=== PATIENT | female | born 1960 | race Two or more races ===

== ENCOUNTER 2022-10-04 17:01 | Emergency (ER) | payer OTHER ==
[~2022-10-04] VITALS: Ht 167.6 cm; Wt 76.2 kg
== END 2022-10-04 20:03 | disposition home or self-care (01) ==
LOC: ER 17:01
DX: N39.0 Urinary tract infection, site not specified (principal); N20.0 Calculus of kidney; N13.30 Unspecified hydronephrosis; Z88.2 Allergy status to sulfonamides; Z88.8 Allergy status to other drugs, medicaments and biological substances

== ENCOUNTER 2022-11-01 22:03 | Inpatient (IN) | payer OTHER ==
[~2022-11-01] VITALS: Ht 167.6 cm; Wt 78.5 kg
--- NOTE | 2022-11-01 22:25 | NUR ---
REFIERE JEFFERSON DOLOR EN AREA ABDOMINAL ACOMPANADA POR VARIOS EPISODIOS DE VOMITOS Y DIARREAS, ESCALOFRIOS. TEMP. 100.9. REFIERE ESTAR ORINANDO CON KIMI, Y ALEGA TENER CONDICIONES DE INFECCIONES DE ORINA RECURRENTENS. TAMBIEN REFIERE DOLOR EN FLANCO KEENAN, Y TENER HISTORIAL DE PIEDRAS EN RINONES.
--- NOTE | 2022-11-02 00:04 | NUR ---
PTE ALERTA Y ORIENTADA X3. SE REALIZAN MUESTRAS DE LAB DEBRA ORDEN MEDICA Y BAJO MEDIDAS ASEPTICAS. SE REALIZA VENOPUNCION CON ANGIO 20 EN MANO DERECHA, AREA JUAN R DE EDEMA Y ENROJECIMIENO. SE ADMINISTRAN MEDICAMENTOS DEBRA ORDEN MEDICA.
--- NOTE | 2022-11-02 07:09 | NUR ---
SE RECIBE PACIENTE ALERTA EN MAGRIE CON BARANDAS ELEVADAS POR SEGURIDAD.PTE CON VENOPUNCION PATENTE Y JUAN R DE EDEMA BAJANDO 0.9NSS @150ML/HR.PTE PENDIENTE ENTREGA FECAL Y CONSULTA CON .
== END 2022-11-10 20:46 | disposition home or self-care (01) | DRG 690 ==
LOC: ER 22:03 → MEDI 11-02 12:28
PROVIDERS: ADMIT Internal Medicine; ATTEND Internal Medicine
PROC: BW3GZZZ Magnetic Resonance Imaging (MRI) of Pelvic Region (ICD-10-PCS; 2022-11-04)
PROC: 30233N1 Transfusion of Nonautologous Red Blood Cells into Peripheral Vein, Percutaneous Approach (ICD-10-PCS; principal; 2022-11-07)
DX: N39.0 Urinary tract infection, site not specified (principal); Z16.12 Extended spectrum beta lactamase (ESBL) resistance; N17.8 Other acute kidney failure; N13.721 Vesicoureteral-reflux with reflux nephropathy without hydroureter, unilateral; E87.6 Hypokalemia; N35.82 Other urethral stricture, female; N20.0 Calculus of kidney; B96.29 Other Escherichia coli [E. coli] as the cause of diseases classified elsewhere; K52.89 Other specified noninfective gastroenteritis and colitis; B96.89 Other specified bacterial agents as the cause of diseases classified elsewhere; D64.9 Anemia, unspecified; I12.9 Hypertensive chronic kidney disease with stage 1 through stage 4 chronic kidney disease, or unspecified chronic kidney disease; N18.9 Chronic kidney disease, unspecified; Z20.822 Contact with and (suspected) exposure to COVID-19
CPT/HCPCS: 72198; 74182

== ENCOUNTER 2022-12-10 15:19 | Inpatient (IN) | payer OTHER ==
[~2022-12-10] VITALS: Ht 167.6 cm; Wt 76.2 kg
[2022-12-10] MEDS ORDERED: HIPREX1 GM PO (15:35)
== END 2022-12-20 17:14 | disposition home or self-care (01) | DRG 660 ==
LOC: ER 15:19 → MEDI 20:46
PROVIDERS: Urology; ADMIT Internal Medicine; ATTEND Internal Medicine
PROC: BW21ZZZ Computerized Tomography (CT Scan) of Abdomen and Pelvis (ICD-10-PCS; 2022-12-10)
PROC: BT14ZZZ Fluoroscopy of Kidneys, Ureters and Bladder (ICD-10-PCS; 2022-12-16)
PROC: 0T788DZ Dilation of Bilateral Ureters with Intraluminal Device, Via Natural or Artificial Opening Endoscopic (ICD-10-PCS; principal; 2022-12-16 13:30)
DX: N13.1 Hydronephrosis with ureteral stricture, not elsewhere classified (principal); Z16.24 Resistance to multiple antibiotics; N39.0 Urinary tract infection, site not specified; N17.8 Other acute kidney failure; N13.721 Vesicoureteral-reflux with reflux nephropathy without hydroureter, unilateral; N20.0 Calculus of kidney; E11.22 Type 2 diabetes mellitus with diabetic chronic kidney disease; N18.31 Chronic kidney disease, stage 3a; Z79.4 Long term (current) use of insulin; B96.20 Unspecified Escherichia coli [E. coli] as the cause of diseases classified elsewhere

== ENCOUNTER 2023-01-17 13:41 | Outpatient (CLI) | payer OTHER ==
[~2023-01-17 13:41] MED LIST: HIPREX1 GM PO
== END 2023-01-17 13:51 | disposition home or self-care (01) ==
LOC: TOM 13:41
DX: N13.1 Hydronephrosis with ureteral stricture, not elsewhere classified (principal)

== ENCOUNTER 2023-01-27 11:22 | Emergency (ER) | payer OTHER ==
[~2023-01-27] VITALS: Ht 167.6 cm; Wt 74.8 kg
== END 2023-01-27 14:37 | disposition home or self-care (01) ==
LOC: ER 11:22
DX: N39.0 Urinary tract infection, site not specified (principal); Z88.2 Allergy status to sulfonamides; Z88.5 Allergy status to narcotic agent

== ENCOUNTER 2023-02-06 15:03 | Inpatient (IN) | payer OTHER ==
[~2023-02-06] VITALS: Ht 167.6 cm; Wt 74.8 kg
[2023-02-17] MEDS ORDERED: SOD CITRATE-CI473 ML PO (09:07)
[2023-02-17] MEDS ORDERED: FAMOTIDINE20 MG PO (09:08)
[2023-02-17] MEDS ORDERED: INTESTINEX680 M1 PO (09:08)
[2023-02-17] MEDS ORDERED: FOSFOMYCIN TROME3 GM PO (09:09)
[2023-02-17] MEDS ORDERED: MONODOX100 MG PO (09:10)
== END 2023-02-17 18:35 | disposition home or self-care (01) | DRG 690 ==
LOC: ER 15:03 → MEDI 02-07 08:29 → MEDJ 02-08 14:10 → MEDI 02-08 14:43
PROVIDERS: ADMIT Internal Medicine; ATTEND Internal Medicine
PROC: 8E0ZXY6 Isolation (ICD-10-PCS; principal; 2023-02-08)
PROC: 0H98XZZ Drainage of Buttock Skin, External Approach (ICD-10-PCS; 2023-02-15)
DX: N39.0 Urinary tract infection, site not specified (principal); L02.31 Cutaneous abscess of buttock; B96.20 Unspecified Escherichia coli [E. coli] as the cause of diseases classified elsewhere; N18.30 Chronic kidney disease, stage 3 unspecified; N13.30 Unspecified hydronephrosis; N20.0 Calculus of kidney; B95.2 Enterococcus as the cause of diseases classified elsewhere; K52.9 Noninfective gastroenteritis and colitis, unspecified

== ENCOUNTER 2023-04-10 14:28 | Outpatient (CLI) | payer OTHER ==
[~2023-04-10 14:28] MED LIST changes: +FAMOTIDINE20 MG PO; +FOSFOMYCIN TROME3 GM PO; +INTESTINEX680 M1 PO; +MONODOX100 MG PO; +SOD CITRATE-CI473 ML PO
== END 2023-04-10 14:33 | disposition home or self-care (01) ==
LOC: EKG 14:28
DX: Z01.810 Encounter for preprocedural cardiovascular examination (principal)

== ENCOUNTER 2023-04-10 15:19 | Outpatient (CLI) | payer OTHER | END 2023-04-10 15:35 | disposition home or self-care (01) | LOC: RAD 15:19 | DX: Z01.811 Encounter for preprocedural respiratory examination (principal) ==

== ENCOUNTER 2023-05-30 13:20 | Inpatient (IN) | payer OTHER ==
[~2023-05-30] VITALS: Ht 167.6 cm; Wt 72.6 kg
--- NOTE | 2023-05-30 14:11 | NUR ---
PACIENTE ALERTTA Y ORIENTADA X3 VERBALIZA QUE FUE OPERADA EL 7 DE ARMANDO RECONSTRUCCION DE URETERES, ARMANDO SEMANA DESPUES DE LA OPERACION COMENZO CON RECURRENCIA URINARIA (VOMITOS 4-6), MAREOS, FIEBRE, SE MONITOREAN S/V Y SE UBICA PACIENTE.
[2023-05-30 16:59] LABS: HEMATOCRIT 24.7 % (36.0-45.00); MEAN CELL VOLUME 82.8 fL (80.00-100.00); MEAN CORPUSCULAR HEMOGLOBIN 26.1 pg (27.00-32.0); MEAN CORPUSCULAR HGB CONC 31.6 g/dl (32.0-36.0); PLATELET COUNT 289 K/uL (150-450); RED BLOOD COUNT 2.98 M/uL (4.00-6.00); RED CELL DISTRIBUTION WIDTH 15.8 % (11.5-14.5)
[2023-05-30 17:03] LABS: HEMOGLOBIN 7.8 g/dL (12.0-15.00)
[2023-05-30 17:12] LABS: CREATININE SERUM 3.02 mg/dL (0.55-1.02); GFR 15.64
[2023-05-30 17:24] LABS: POTASSIUM 2.86 mEq/L (3.5-5.1)
--- NOTE | 2023-05-30 17:46 | NUR ---
PTE EVALUADO POR MD GRIER ORDENA [place] MED A PTE. MR RAGHU LLEVA ACABO ORDENES BAJO MEDIDAS ACEPTICAS. PTE PEND A RESULTADOS DE LABS
[2023-05-30 18:06] LABS: URINE APPEARANCE TURBID; URINE BILIRRUBIN NEGATIVE (NEGATIVE); URINE COLOR YELLOW; URINE GLUCOSE NEGATIVE (NEGATIVE)
[2023-05-30 18:07] LABS: URINE BLOOD SMALL; URINE PROTEIN 100 (NEGATIVE)
[2023-05-30 18:08] LABS: URINE LEUKOCYTE MODERATE; URINE NITRATE NEGATIVE; URINE UROBILINOGEN 0.2 E.U./dl
[2023-05-30 18:10] LABS: URINE RBC 36-50 /HPF; URINE WBC LOADED /hpf
[2023-05-30 18:15] LABS: URINE BACTERIA MANY
[2023-05-30 18:16] LABS: URINE CRYSTALS NEGATIVE /HPF
[2023-05-30 18:19] LABS: URINE MUCUS NEGATIVE
[2023-05-31 03:03] LABS: PH,URINE 5.5 (5.0-8.0); URINE APPEARANCE Turbid; URINE BILIRRUBIN Negative (NEGATIVE); URINE BLOOD Moderate; URINE COLOR Yellow; URINE GLUCOSE Negative (NEGATIVE); URINE LEUKOCYTE Large; URINE NITRATE Negative; URINE UROBILINOGEN 0.2 E.U./dl
[2023-05-31 03:04] LABS: URINE BACTERIA 8956.1 uL (0.0-1933); URINE EPITHELIAL CELLS 43.8 uL (0.0-38.8); URINE RBC 8.5 uL (0.0-20.8)
[2023-05-31 03:36] LABS: URINE PROTEIN 100 (NEGATIVE); URINE WBC > 5548.3 uL (0.0-23.2)
[2023-05-31 06:39] LABS: INR 1.11; PARTIAL THROMBOPLASTIN TIME 30.4 SECONDS (22.0-34.0); PROTHROMBIN TIME 11.6 SECONDS (9.0-11.5)
[2023-05-31 07:11] LABS: MEAN CELL VOLUME 81.7 fL (80.00-100.00); MEAN CORPUSCULAR HGB CONC 33.3 g/dl (32.0-36.0); PLATELET COUNT 230 K/uL (150-450); RED BLOOD COUNT 2.64 M/uL (4.00-6.00); RED CELL DISTRIBUTION WIDTH 16.1 % (11.5-14.5)
[2023-05-31 07:17] LABS: ALBUMIN 2.3 gm/dL (3.4-5.0); BILIRUBIN TOTAL 0.6 mg/dL (0.3-1.2); BILIRUBIN,CONJUGATED 0.25 mg/dL (0.0-0.2); BILIRUBIN,UNCONJUGATED 0.35 mg/dL (0.0-0.6); CALCIUM 8.3 mg/dL (8.5-10.1); CHOL HDL RATIO 3.5 (0-5.0); CREATININE SERUM 2.78 mg/dL (0.55-1.02); GFR 17.21; GLOBULINA 4.3 G/DL (2.4-3.5); MAGNESIUM 2.1 mg/dL (1.8-2.4); POTASSIUM 3.16 mEq/L (3.5-5.1); TOTAL PROTEIN 6.6 gm/dL (6.4-8.2); TSH 1.82 uIU/mL (0.358-3.74)
[2023-05-31 07:25] LABS: C-REACTIVE PROTEIN 15.8 MG/DL (0.00-0.29)
[2023-05-31 07:37] LABS: MEAN CORPUSCULAR HEMOGLOBIN 27.2 pg (27.00-32.0)
[2023-05-31 07:52] LABS: HEMOGLOBIN 7.2 g/dL (12.0-15.00)
[2023-05-31 07:53] LABS: HEMATOCRIT 21.6 % (36.0-45.00)
[2023-05-31 08:45] LABS: ERYTHROCYTE SEDIMENTATION RATE 53 mm/hr
[2023-06-01 07:31] LABS: MEAN CELL VOLUME 82.7 fL (80.00-100.00); MEAN CORPUSCULAR HGB CONC 32.5 g/dl (32.0-36.0); PLATELET COUNT 225 K/uL (150-450); RED BLOOD COUNT 2.63 M/uL (4.00-6.00); RED CELL DISTRIBUTION WIDTH 16.3 % (11.5-14.5)
[2023-06-01 07:53] LABS: HEMATOCRIT 21.8 % (36.0-45.00); MEAN CORPUSCULAR HEMOGLOBIN 26.9 pg (27.00-32.0)
[2023-06-01 07:54] LABS: CALCIUM 7.9 mg/dL (8.5-10.1); CREATININE SERUM 2.55 mg/dL (0.55-1.02); GFR 19.01; MAGNESIUM 2.5 mg/dL (1.8-2.4); POTASSIUM 3.65 mEq/L (3.5-5.1)
[2023-06-01 07:55] LABS: HEMOGLOBIN 7.1 g/dL (12.0-15.00)
[2023-06-03 09:16] LABS: BILIRUBIN TOTAL 0.46 mg/dL (0.3-1.2); CALCIUM 7.9 mg/dL (8.5-10.1); CREATININE SERUM 2.01 mg/dL (0.55-1.02); GFR 25.02; MAGNESIUM 2.3 mg/dL (1.8-2.4); POTASSIUM 4.18 mEq/L (3.5-5.1)
[2023-06-03 10:28] LABS: HEMATOCRIT 29.9 % (36.0-45.00); MEAN CELL VOLUME 83.5 fL (80.00-100.00); MEAN CORPUSCULAR HGB CONC 33.2 g/dl (32.0-36.0); PLATELET COUNT 282 K/uL (150-450); RED BLOOD COUNT 3.58 M/uL (4.00-6.00); RED CELL DISTRIBUTION WIDTH 15.6 % (11.5-14.5)
[2023-06-03 10:32] LABS: HEMOGLOBIN 9.9 g/dL (12.0-15.00); MEAN CORPUSCULAR HEMOGLOBIN 27.6 pg (27.00-32.0)
[2023-06-05 06:32] LABS: HEMATOCRIT 32.3 % (36.0-45.00); HEMOGLOBIN 10.6 g/dL (12.0-15.00); MEAN CELL VOLUME 84.7 fL (80.00-100.00); MEAN CORPUSCULAR HEMOGLOBIN 27.9 pg (27.00-32.0); MEAN CORPUSCULAR HGB CONC 32.9 g/dl (32.0-36.0); PLATELET COUNT 251 K/uL (150-450); RED BLOOD COUNT 3.81 M/uL (4.00-6.00); RED CELL DISTRIBUTION WIDTH 15.8 % (11.5-14.5)
[2023-06-05 07:13] LABS: ERYTHROCYTE SEDIMENTATION RATE 34 mm/hr
[2023-06-05 07:17] LABS: ALBUMIN 1.8 gm/dL (3.4-5.0); BILIRUBIN TOTAL 0.37 mg/dL (0.3-1.2); CALCIUM 7.6 mg/dL (8.5-10.1); CREATININE SERUM 1.9 mg/dL (0.55-1.02); GFR 26.7; GLOBULINA 3.3 G/DL (2.4-3.5); MAGNESIUM 1.8 mg/dL (1.8-2.4); POTASSIUM 3.69 mEq/L (3.5-5.1); TOTAL PROTEIN 5.1 gm/dL (6.4-8.2)
[2023-06-05 07:18] LABS: C-REACTIVE PROTEIN 1.72 MG/DL (0.00-0.29)
[2023-06-05 12:59] LABS: URINE APPEARANCE Clear; URINE BILIRRUBIN Negative (NEGATIVE); URINE BLOOD Negative; URINE COLOR Yellow; URINE GLUCOSE Negative (NEGATIVE); URINE LEUKOCYTE Moderate; URINE NITRATE Negative; URINE PROTEIN 30 (NEGATIVE); URINE UROBILINOGEN 0.2 E.U./dl
[2023-06-05 13:00] LABS: URINE EPITHELIAL CELLS 3.4 uL (0.0-38.8); URINE WBC 160.4 uL (0.0-23.2)
[2023-06-06 08:07] LABS: URINE APPEARANCE Clear; URINE BILIRRUBIN Negative (NEGATIVE); URINE BLOOD Negative; URINE COLOR Yellow; URINE GLUCOSE Negative (NEGATIVE); URINE LEUKOCYTE Moderate; URINE NITRATE Negative; URINE PROTEIN Trace (NEGATIVE); URINE UROBILINOGEN 0.2 E.U./dl
[2023-06-06 08:11] LABS: URINE BACTERIA 190.9 uL (0.0-1933); URINE EPITHELIAL CELLS 4.5 uL (0.0-38.8); URINE WBC 187.6 uL (0.0-23.2)
[2023-06-09 05:25] LABS: MEAN CELL VOLUME 85.7 fL (80.00-100.00); MEAN CORPUSCULAR HGB CONC 32.6 g/dl (32.0-36.0); PLATELET COUNT 216 K/uL (150-450); RED BLOOD COUNT 3.73 M/uL (4.00-6.00); RED CELL DISTRIBUTION WIDTH 16.8 % (11.5-14.5)
[2023-06-09 05:38] LABS: HEMOGLOBIN 10.4 g/dL (12.0-15.00); MEAN CORPUSCULAR HEMOGLOBIN 27.8 pg (27.00-32.0)
[2023-06-09 06:51] LABS: ALBUMIN 2.1 gm/dL (3.4-5.0); BILIRUBIN TOTAL 0.67 mg/dL (0.3-1.2); CREATININE SERUM 1.62 mg/dL (0.55-1.02); GFR 32.09; GLOBULINA 3.4 G/DL (2.4-3.5); POTASSIUM 3.7 mEq/L (3.5-5.1); TOTAL PROTEIN 5.5 gm/dL (6.4-8.2)
[2023-06-09 07:00] LABS: C-REACTIVE PROTEIN 0.82 MG/DL (0.00-0.29)
[2023-06-11 10:10] LABS: HEMATOCRIT 32.1 % (36.0-45.00); HEMOGLOBIN 10.5 g/dL (12.0-15.00); MEAN CELL VOLUME 85.2 fL (80.00-100.00); MEAN CORPUSCULAR HGB CONC 32.8 g/dl (32.0-36.0); PLATELET COUNT 187 K/uL (150-450); RED BLOOD COUNT 3.76 M/uL (4.00-6.00); RED CELL DISTRIBUTION WIDTH 16.8 % (11.5-14.5)
[2023-06-11 10:12] LABS: ALBUMIN 2.4 gm/dL (3.4-5.0); BILIRUBIN TOTAL 0.8 mg/dL (0.3-1.2); CALCIUM 8.4 mg/dL (8.5-10.1); CREATININE SERUM 1.6 mg/dL (0.55-1.02); GFR 32.55; GLOBULINA 3.4 G/DL (2.4-3.5); MAGNESIUM 1.9 mg/dL (1.8-2.4); PHOSPHOROUS 2.7 mg/dL (2.5-4.9); POTASSIUM 3.7 mEq/L (3.5-5.1); TOTAL PROTEIN 5.8 gm/dL (6.4-8.2)
[2023-06-12 06:57] LABS: ALBUMIN 2.4 gm/dL (3.4-5.0); CALCIUM 8.2 mg/dL (8.5-10.1); CREATININE SERUM 1.65 mg/dL (0.55-1.02); GFR 31.42; PHOSPHOROUS 2.7 mg/dL (2.5-4.9); POTASSIUM 3.97 mEq/L (3.5-5.1)
[2023-06-15 07:04] LABS: ALBUMIN 2.4 gm/dL (3.4-5.0); CALCIUM 8.2 mg/dL (8.5-10.1); CREATININE SERUM 1.57 mg/dL (0.55-1.02); GFR 33.27; PHOSPHOROUS 3.4 mg/dL (2.5-4.9); POTASSIUM 4.2 mEq/L (3.5-5.1)
[2023-06-16 11:16] LABS: HEMATOCRIT 32.9 % (36.0-45.00); HEMOGLOBIN 10.9 g/dL (12.0-15.00); MEAN CELL VOLUME 84.7 fL (80.00-100.00); MEAN CORPUSCULAR HGB CONC 33.1 g/dl (32.0-36.0); PLATELET COUNT 166 K/uL (150-450); RED BLOOD COUNT 3.88 M/uL (4.00-6.00); RED CELL DISTRIBUTION WIDTH 17.9 % (11.5-14.5)
[2023-06-19 06:33] LABS: HEMATOCRIT 33.2 % (36.0-45.00); HEMOGLOBIN 10.6 g/dL (12.0-15.00); MEAN CELL VOLUME 85.5 fL (80.00-100.00); MEAN CORPUSCULAR HEMOGLOBIN 27.4 pg (27.00-32.0); MEAN CORPUSCULAR HGB CONC 32.1 g/dl (32.0-36.0); PLATELET COUNT 167 K/uL (150-450); RED BLOOD COUNT 3.88 M/uL (4.00-6.00); RED CELL DISTRIBUTION WIDTH 17.8 % (11.5-14.5)
[2023-06-19 07:02] LABS: ALBUMIN 2.7 gm/dL (3.4-5.0); BILIRUBIN TOTAL 0.74 mg/dL (0.3-1.2); CALCIUM 8.6 mg/dL (8.5-10.1); CREATININE SERUM 1.62 mg/dL (0.55-1.02); GFR 32.09; GLOBULINA 3.7 G/DL (2.4-3.5); MAGNESIUM 2.1 mg/dL (1.8-2.4); PHOSPHOROUS 3.7 mg/dL (2.5-4.9); POTASSIUM 4.04 mEq/L (3.5-5.1); TOTAL PROTEIN 6.4 gm/dL (6.4-8.2)
[2023-06-21 06:13] LABS: HEMATOCRIT 35.8 % (36.0-45.00); HEMOGLOBIN 11.5 g/dL (12.0-15.00); MEAN CORPUSCULAR HEMOGLOBIN 27.6 pg (27.00-32.0); MEAN CORPUSCULAR HGB CONC 32.1 g/dl (32.0-36.0); PLATELET COUNT 188 K/uL (150-450); RED BLOOD COUNT 4.16 M/uL (4.00-6.00); RED CELL DISTRIBUTION WIDTH 18.6 % (11.5-14.5)
[2023-06-21 06:41] LABS: BILIRUBIN TOTAL 1.21 mg/dL (0.3-1.2); CALCIUM 8.6 mg/dL (8.5-10.1); CREATININE SERUM 1.69 mg/dL (0.55-1.02); GFR 30.56; GLOBULINA 3.6 G/DL (2.4-3.5); POTASSIUM 4.53 mEq/L (3.5-5.1); TOTAL PROTEIN 6.6 gm/dL (6.4-8.2)
[2023-06-21 14:59] LABS: PH,URINE 6.5 (5.0-8.0); URINE APPEARANCE Cloudy; URINE BILIRRUBIN Negative (NEGATIVE); URINE BLOOD Large; URINE COLOR Orange; URINE GLUCOSE Negative (NEGATIVE); URINE LEUKOCYTE Large; URINE NITRATE Positive; URINE UROBILINOGEN 0.2 E.U./dl
[2023-06-21 15:00] LABS: URINE EPITHELIAL CELLS 2.3 uL (0.0-38.8); URINE RBC 4629.5 uL (0.0-20.8)
[2023-06-21 15:22] LABS: URINE BACTERIA > 9821.5 uL (0.0-1933); URINE PROTEIN 100 (NEGATIVE)
[2023-06-23 13:49] LABS: HEMATOCRIT 34.6 % (36.0-45.00); HEMOGLOBIN 11.2 g/dL (12.0-15.00); MEAN CELL VOLUME 84.7 fL (80.00-100.00); MEAN CORPUSCULAR HEMOGLOBIN 27.4 pg (27.00-32.0); MEAN CORPUSCULAR HGB CONC 32.4 g/dl (32.0-36.0); PLATELET COUNT 177 K/uL (150-450); RED BLOOD COUNT 4.08 M/uL (4.00-6.00); RED CELL DISTRIBUTION WIDTH 18.6 % (11.5-14.5)
[2023-06-23 14:05] LABS: ALBUMIN 2.9 gm/dL (3.4-5.0); BILIRUBIN TOTAL 1.31 mg/dL (0.3-1.2); CREATININE SERUM 2.04 mg/dL (0.55-1.02); GFR 24.6; GLOBULINA 3.9 G/DL (2.4-3.5); POTASSIUM 3.96 mEq/L (3.5-5.1); TOTAL PROTEIN 6.8 gm/dL (6.4-8.2)
[2023-06-24 08:49] LABS: ALBUMIN 2.7 gm/dL (3.4-5.0); BILIRUBIN TOTAL 0.98 mg/dL (0.3-1.2); CALCIUM 8.6 mg/dL (8.5-10.1); CREATININE SERUM 1.99 mg/dL (0.55-1.02); GFR 25.23; GLOBULINA 3.8 G/DL (2.4-3.5); POTASSIUM 4.35 mEq/L (3.5-5.1); TOTAL PROTEIN 6.5 gm/dL (6.4-8.2)
[2023-06-24 09:02] LABS: HEMATOCRIT 34.6 % (36.0-45.00); HEMOGLOBIN 11.1 g/dL (12.0-15.00); MEAN CORPUSCULAR HEMOGLOBIN 27.5 pg (27.00-32.0); PLATELET COUNT 182 K/uL (150-450); RED BLOOD COUNT 4.02 M/uL (4.00-6.00); RED CELL DISTRIBUTION WIDTH 18.4 % (11.5-14.5)
[2023-06-26 06:48] LABS: ALBUMIN 2.5 gm/dL (3.4-5.0); BILIRUBIN TOTAL 0.56 mg/dL (0.3-1.2); CREATININE SERUM 1.75 mg/dL (0.55-1.02); GFR 29.26; GLOBULINA 3.3 G/DL (2.4-3.5); POTASSIUM 3.83 mEq/L (3.5-5.1); TOTAL PROTEIN 5.8 gm/dL (6.4-8.2)
[2023-06-26 06:56] LABS: HEMATOCRIT 32.5 % (36.0-45.00); HEMOGLOBIN 10.6 g/dL (12.0-15.00); MEAN CELL VOLUME 85.1 fL (80.00-100.00); MEAN CORPUSCULAR HEMOGLOBIN 27.7 pg (27.00-32.0); MEAN CORPUSCULAR HGB CONC 32.5 g/dl (32.0-36.0); PLATELET COUNT 168 K/uL (150-450); RED BLOOD COUNT 3.81 M/uL (4.00-6.00); RED CELL DISTRIBUTION WIDTH 17.8 % (11.5-14.5)
[2023-06-29 05:34] LABS: HEMATOCRIT 35.9 % (36.0-45.00); HEMOGLOBIN 11.6 g/dL (12.0-15.00); MEAN CELL VOLUME 83.4 fL (80.00-100.00); MEAN CORPUSCULAR HGB CONC 32.4 g/dl (32.0-36.0); PLATELET COUNT 195 K/uL (150-450); RED CELL DISTRIBUTION WIDTH 17.3 % (11.5-14.5)
[2023-06-29 05:38] LABS: ALBUMIN 2.9 gm/dL (3.4-5.0); BILIRUBIN TOTAL 0.68 mg/dL (0.3-1.2); CALCIUM 8.6 mg/dL (8.5-10.1); CREATININE SERUM 1.79 mg/dL (0.55-1.02); GFR 28.51; GLOBULINA 3.8 G/DL (2.4-3.5); MAGNESIUM 1.9 mg/dL (1.8-2.4); POTASSIUM 4.59 mEq/L (3.5-5.1); TOTAL PROTEIN 6.7 gm/dL (6.4-8.2)
[2023-06-30 05:49] LABS: ALBUMIN 2.8 gm/dL (3.4-5.0); BILIRUBIN TOTAL 0.59 mg/dL (0.3-1.2); CALCIUM 8.5 mg/dL (8.5-10.1); CREATININE SERUM 1.82 mg/dL (0.55-1.02); GFR 27.97; GLOBULINA 3.4 G/DL (2.4-3.5); MAGNESIUM 2.1 mg/dL (1.8-2.4); POTASSIUM 4.06 mEq/L (3.5-5.1); TOTAL PROTEIN 6.2 gm/dL (6.4-8.2)
[2023-07-02 08:23] LABS: HEMATOCRIT 34.6 % (36.0-45.00); HEMOGLOBIN 11.4 g/dL (12.0-15.00); MEAN CELL VOLUME 82.6 fL (80.00-100.00); MEAN CORPUSCULAR HEMOGLOBIN 27.1 pg (27.00-32.0); MEAN CORPUSCULAR HGB CONC 32.9 g/dl (32.0-36.0); PLATELET COUNT 182 K/uL (150-450); RED BLOOD COUNT 4.18 M/uL (4.00-6.00)
[2023-07-02 08:40] LABS: ALBUMIN 2.7 gm/dL (3.4-5.0); BILIRUBIN TOTAL 0.69 mg/dL (0.3-1.2); CALCIUM 8.4 mg/dL (8.5-10.1); CREATININE SERUM 1.89 mg/dL (0.55-1.02); GFR 26.78; GLOBULINA 3.3 G/DL (2.4-3.5); POTASSIUM 4.2 mEq/L (3.5-5.1)
[2023-07-04 14:33] LABS: URINE APPEARANCE Clear; URINE BILIRRUBIN Negative (NEGATIVE); URINE BLOOD Small; URINE COLOR Yellow; URINE LEUKOCYTE Moderate; URINE NITRATE Negative; URINE PROTEIN 30 (NEGATIVE); URINE UROBILINOGEN 0.2 E.U./dl
[2023-07-04 14:34] LABS: URINE BACTERIA 175.2 uL (0.0-1933); URINE EPITHELIAL CELLS 5.6 uL (0.0-38.8); URINE RBC 34.6 uL (0.0-20.8); URINE WBC 357.5 uL (0.0-23.2)
[2023-07-04 14:42] LABS: URINE GLUCOSE 250 MG/DL (NEGATIVE)
[2023-07-05 07:11] LABS: HEMATOCRIT 32.6 % (36.0-45.00); HEMOGLOBIN 10.9 g/dL (12.0-15.00); MEAN CELL VOLUME 81.8 fL (80.00-100.00); MEAN CORPUSCULAR HEMOGLOBIN 27.4 pg (27.00-32.0); MEAN CORPUSCULAR HGB CONC 33.5 g/dl (32.0-36.0); PLATELET COUNT 160 K/uL (150-450); RED BLOOD COUNT 3.98 M/uL (4.00-6.00); RED CELL DISTRIBUTION WIDTH 17.8 % (11.5-14.5)
[2023-07-05 08:28] LABS: CALCIUM 8.2 mg/dL (8.5-10.1); CREATININE SERUM 1.55 mg/dL (0.55-1.02); GFR 33.66; MAGNESIUM 2.3 mg/dL (1.8-2.4); PHOSPHOROUS 3.4 mg/dL (2.5-4.9); POTASSIUM 3.81 mEq/L (3.5-5.1)
[2023-07-09 09:56] LABS: CREATININE SERUM 1.45 mg/dL (0.55-1.02); GFR 36.35; POTASSIUM 3.99 mEq/L (3.5-5.1)
[2023-07-09 10:05] LABS: HEMATOCRIT 32.1 % (36.0-45.00); HEMOGLOBIN 10.4 g/dL (12.0-15.00); MEAN CELL VOLUME 83.3 fL (80.00-100.00); MEAN CORPUSCULAR HGB CONC 32.4 g/dl (32.0-36.0); RED BLOOD COUNT 3.85 M/uL (4.00-6.00)
[2023-07-09 10:12] LABS: PLATELET COUNT 127 K/uL (150-450)
[2023-07-12 07:56] LABS: HEMATOCRIT 30.4 % (36.0-45.00); HEMOGLOBIN 10.3 g/dL (12.0-15.00); MEAN CORPUSCULAR HEMOGLOBIN 27.9 pg (27.00-32.0); RED CELL DISTRIBUTION WIDTH 17.8 % (11.5-14.5)
[2023-07-12 08:10] LABS: PLATELET COUNT 112 K/uL (150-450)
[2023-07-12 08:25] LABS: CALCIUM 7.8 mg/dL (8.5-10.1); CREATININE SERUM 1.59 mg/dL (0.55-1.02); GFR 32.69; MAGNESIUM 2.1 mg/dL (1.8-2.4); POTASSIUM 3.91 mEq/L (3.5-5.1)
[2023-07-14 11:32] LABS: HEMATOCRIT 31.8 % (36.0-45.00); HEMOGLOBIN 10.1 g/dL (12.0-15.00); MEAN CELL VOLUME 83.1 fL (80.00-100.00); MEAN CORPUSCULAR HEMOGLOBIN 26.5 pg (27.00-32.0); MEAN CORPUSCULAR HGB CONC 31.9 g/dl (32.0-36.0); PLATELET COUNT 150 K/uL (150-450); RED BLOOD COUNT 3.82 M/uL (4.00-6.00); RED CELL DISTRIBUTION WIDTH 18.1 % (11.5-14.5)
[2023-07-14 11:57] LABS: CALCIUM 8.2 mg/dL (8.5-10.1); CREATININE SERUM 1.63 mg/dL (0.55-1.02); GFR 31.76; MAGNESIUM 2.1 mg/dL (1.8-2.4); POTASSIUM 3.82 mEq/L (3.5-5.1)
[2023-07-17 07:20] LABS: ABG PH 7.403 (7.35-7.45); ABG PO2 78.4 mmHg (80-100); BASE EXCESS -3.1 mmol/l; BICARBONATE 20.7 mmol/l (23-25); SaO2 95.4 %; Tco2 21.8 mmol/l
[2023-07-17 07:21] LABS: allen test SATISFACTORY; o2 21 %; puncture site RADIAL LEFT
[2023-07-17 07:29] LABS: HEMATOCRIT 33.5 % (36.0-45.00); HEMOGLOBIN 10.9 g/dL (12.0-15.00); MEAN CELL VOLUME 83.3 fL (80.00-100.00); MEAN CORPUSCULAR HEMOGLOBIN 27.1 pg (27.00-32.0); MEAN CORPUSCULAR HGB CONC 32.5 g/dl (32.0-36.0); PLATELET COUNT 176 K/uL (150-450); RED BLOOD COUNT 4.02 M/uL (4.00-6.00); RED CELL DISTRIBUTION WIDTH 18.8 % (11.5-14.5)
[2023-07-17 08:42] LABS: CALCIUM 8.4 mg/dL (8.5-10.1); CREATININE SERUM 1.82 mg/dL (0.55-1.02); GFR 27.97; MAGNESIUM 2.2 mg/dL (1.8-2.4); POTASSIUM 4.52 mEq/L (3.5-5.1)
[2023-07-17 10:06] LABS: PH,URINE 7.5 (5.0-8.0); URINE APPEARANCE Clear; URINE BILIRRUBIN Negative (NEGATIVE); URINE COLOR Yellow; URINE LEUKOCYTE Large; URINE NITRATE Negative; URINE PROTEIN 30 (NEGATIVE); URINE UROBILINOGEN 0.2 E.U./dl
[2023-07-17 10:11] LABS: URINE BACTERIA 300.9 uL (0.0-1933); URINE EPITHELIAL CELLS 2.9 uL (0.0-38.8); URINE RBC 7.4 uL (0.0-20.8); URINE WBC 331.9 uL (0.0-23.2)
[2023-07-17 10:13] LABS: URINE BLOOD TRACE; URINE GLUCOSE 500 MG/DL (NEGATIVE)
[2023-07-18 07:52] LABS: CALCIUM 8.1 mg/dL (8.5-10.1); CREATININE SERUM 1.62 mg/dL (0.55-1.02); GFR 31.99; MAGNESIUM 2.4 mg/dL (1.8-2.4); POTASSIUM 3.79 mEq/L (3.5-5.1)
== END 2023-07-19 11:45 | disposition home or self-care (01) | DRG 698 ==
LOC: ER 13:20 → SEC-K 20:08 → MEDJ 20:08 → MEDI 20:43 → SEC-K 20:44 → MEDJ 21:53
PROVIDERS: Emergency Medicine; Internal Medicine; Internal Medicine Infectious Disease; Internal Medicine Nephrology; Radiology Vascular & Interventional Radiology; ADMIT Internal Medicine; ATTEND Internal Medicine
PROC: BW21ZZZ Computerized Tomography (CT Scan) of Abdomen and Pelvis (ICD-10-PCS; 2023-05-30)
PROC: 02HV33Z Insertion of Infusion Device into Superior Vena Cava, Percutaneous Approach (ICD-10-PCS; 2023-05-31)
PROC: 8E0ZXY6 Isolation (ICD-10-PCS; 2023-05-31)
PROC: 30233N1 Transfusion of Nonautologous Red Blood Cells into Peripheral Vein, Percutaneous Approach (ICD-10-PCS; 2023-06-01)
PROC: 0W9G30Z Drainage of Peritoneal Cavity with Drainage Device, Percutaneous Approach (ICD-10-PCS; 2023-06-02)
PROC: BW21YZZ Computerized Tomography (CT Scan) of Abdomen and Pelvis using Other Contrast (ICD-10-PCS; 2023-06-02)
PROC: 0TPBX0Z Removal of Drainage Device from Bladder, External Approach (ICD-10-PCS; 2023-06-05)
PROC: BW21ZZZ Computerized Tomography (CT Scan) of Abdomen and Pelvis (ICD-10-PCS; 2023-06-13)
PROC: 0T9130Z Drainage of Left Kidney with Drainage Device, Percutaneous Approach (ICD-10-PCS; principal; 2023-06-20 18:15)
PROC: BW21ZZZ Computerized Tomography (CT Scan) of Abdomen and Pelvis (ICD-10-PCS; 2023-06-23)
PROC: 0T25X0Z Change Drainage Device in Kidney, External Approach (ICD-10-PCS; 2023-06-25)
PROC: BW21ZZZ Computerized Tomography (CT Scan) of Abdomen and Pelvis (ICD-10-PCS; 2023-07-06)
PROC: BW30ZZZ Magnetic Resonance Imaging (MRI) of Abdomen (ICD-10-PCS; 2023-07-07)
PROC: 0T9130Z Drainage of Left Kidney with Drainage Device, Percutaneous Approach (ICD-10-PCS; 2023-07-10)
PROC: BW21ZZZ Computerized Tomography (CT Scan) of Abdomen and Pelvis (ICD-10-PCS; 2023-07-16)
PROC: 4A12X4Z Monitoring of Cardiac Electrical Activity, External Approach (ICD-10-PCS; 2023-07-17)
DX: T83.592A Infection and inflammatory reaction due to indwelling ureteral stent, initial encounter (principal); K65.1 Peritoneal abscess; N99.840 Postprocedural hematoma of a genitourinary system organ or structure following a genitourinary system procedure; N13.2 Hydronephrosis with renal and ureteral calculous obstruction; B37.49 Other urogenital candidiasis; N17.8 Other acute kidney failure; N28.89 Other specified disorders of kidney and ureter; T83.193A Other mechanical complication of other urinary stent, initial encounter; T83.032A Leakage of nephrostomy catheter, initial encounter; T83.512A Infection and inflammatory reaction due to nephrostomy catheter, initial encounter; B96.29 Other Escherichia coli [E. coli] as the cause of diseases classified elsewhere; B95.2 Enterococcus as the cause of diseases classified elsewhere; B96.89 Other specified bacterial agents as the cause of diseases classified elsewhere; D70.2 Other drug-induced agranulocytosis; L27.0 Generalized skin eruption due to drugs and medicaments taken internally; T36.8X5A Adverse effect of other systemic antibiotics, initial encounter; I12.9 Hypertensive chronic kidney disease with stage 1 through stage 4 chronic kidney disease, or unspecified chronic kidney disease; N18.31 Chronic kidney disease, stage 3a; D63.1 Anemia in chronic kidney disease; D64.89 Other specified anemias; D69.6 Thrombocytopenia, unspecified; F43.22 Adjustment disorder with anxiety; Y73.3 Surgical instruments, materials and gastroenterology and urology devices (including sutures) associated with adverse incidents; Y92.230 Patient room in hospital as the place of occurrence of the external cause
CPT/HCPCS: 74181

== ENCOUNTER 2023-08-07 16:40 | Inpatient (IN) | payer OTHER ==
[~2023-08-07] VITALS: Ht 152.4 cm; Wt 77.1 kg
[2023-08-07] MEDS ORDERED: GRALISE600 MG (16:56)
[2023-08-07] MEDS ORDERED: PANTOPRAZOLE SO40 MG PO (16:57)
[2023-08-07 17:40] LABS: HEMATOCRIT 30.1 % (36.0-45.00); HEMOGLOBIN 9.6 g/dL (12.0-15.00); MEAN CELL VOLUME 83.5 fL (80.00-100.00); MEAN CORPUSCULAR HEMOGLOBIN 26.5 pg (27.00-32.0); MEAN CORPUSCULAR HGB CONC 31.8 g/dl (32.0-36.0); PLATELET COUNT 209 K/uL (150-450); RED BLOOD COUNT 3.61 M/uL (4.00-6.00); RED CELL DISTRIBUTION WIDTH 18.7 % (11.5-14.5)
[2023-08-07 17:51] LABS: INR 1.05; PARTIAL THROMBOPLASTIN TIME 30.9 SECONDS (22.0-34.0)
[2023-08-07 17:53] LABS: CALCIUM 8.1 mg/dL (8.5-10.1); CREATININE SERUM 3.2 mg/dL (0.55-1.02); GFR 14.58; POTASSIUM 3.96 mEq/L (3.5-5.1)
[2023-08-07 18:21] LABS: PH,URINE 6.5 (5.0-8.0); URINE APPEARANCE Cloudy; URINE BILIRRUBIN Negative (NEGATIVE); URINE BLOOD Moderate; URINE COLOR Yellow; URINE LEUKOCYTE Large; URINE NITRATE Negative; URINE UROBILINOGEN 0.2 E.U./dl
[2023-08-07 18:22] LABS: URINE BACTERIA 212.9 uL (0.0-1933); URINE RBC 14.8 uL (0.0-20.8); URINE WBC 1700.2 uL (0.0-23.2)
[2023-08-07 18:23] LABS: URINE GLUCOSE 100 MG/DL (NEGATIVE); URINE PROTEIN 100 (NEGATIVE)
[2023-08-08 01:03] LABS: ABG PH 7.403 (7.35-7.45); ABG PO2 123.9 mmHg (80-100); ABG pCO2 23.4 mmHg (35-45); BASE EXCESS -8.2 mmol/l; BICARBONATE 14.3 mmol/l (23-25); SaO2 98.7 %
[2023-08-08 03:25] LABS: allen test SATISFACTORY; o2 28 %; puncture site RADIAL LEFT
[2023-08-09 06:31] LABS: HEMATOCRIT 25.7 % (36.0-45.00); MEAN CELL VOLUME 82.2 fL (80.00-100.00); PLATELET COUNT 181 K/uL (150-450); RED BLOOD COUNT 3.13 M/uL (4.00-6.00); RED CELL DISTRIBUTION WIDTH 18.5 % (11.5-14.5)
[2023-08-09 06:42] LABS: URINE APPEARANCE Turbid; URINE BILIRRUBIN Negative (NEGATIVE); URINE BLOOD Moderate; URINE COLOR Yellow; URINE GLUCOSE Negative (NEGATIVE); URINE LEUKOCYTE Large; URINE NITRATE Negative; URINE PROTEIN 30 (NEGATIVE); URINE UROBILINOGEN 0.2 E.U./dl
[2023-08-09 06:43] LABS: MAGNESIUM 2.1 mg/dL (1.8-2.4); PHOSPHOROUS 3.1 mg/dL (2.5-4.9)
[2023-08-09 06:44] LABS: ALBUMIN 2.1 gm/dL (3.4-5.0); BILIRUBIN TOTAL 0.61 mg/dL (0.3-1.2); CREATININE SERUM 2.35 mg/dL (0.55-1.02); GFR 20.82; GLOBULINA 3.5 G/DL (2.4-3.5); POTASSIUM 3.79 mEq/L (3.5-5.1); TOTAL PROTEIN 5.6 gm/dL (6.4-8.2)
[2023-08-09 06:48] LABS: URINE BACTERIA > 9821.5 uL (0.0-1933); URINE EPITHELIAL CELLS 60.4 uL (0.0-38.8); URINE RBC 79.3 uL (0.0-20.8); URINE WBC 3686.8 uL (0.0-23.2)
[2023-08-09 06:50] LABS: C-REACTIVE PROTEIN 17.8 MG/DL (0.00-0.29)
[2023-08-09 07:00] LABS: HEMOGLOBIN 8.7 g/dL (12.0-15.00); MEAN CORPUSCULAR HEMOGLOBIN 27.7 pg (27.00-32.0)
[2023-08-10 07:01] LABS: CALCIUM 7.9 mg/dL (8.5-10.1); CREATININE SERUM 2.06 mg/dL (0.55-1.02); GFR 24.24; POTASSIUM 3.34 mEq/L (3.5-5.1)
[2023-08-11 07:30] LABS: HEMATOCRIT 27.5 % (36.0-45.00); HEMOGLOBIN 9.3 g/dL (12.0-15.00); MEAN CELL VOLUME 81.9 fL (80.00-100.00); MEAN CORPUSCULAR HEMOGLOBIN 27.6 pg (27.00-32.0); MEAN CORPUSCULAR HGB CONC 33.7 g/dl (32.0-36.0); PLATELET COUNT 213 K/uL (150-450); RED BLOOD COUNT 3.35 M/uL (4.00-6.00)
[2023-08-11 07:41] LABS: CREATININE SERUM 1.93 mg/dL (0.55-1.02); GFR 26.14; MAGNESIUM 1.8 mg/dL (1.8-2.4); POTASSIUM 3.95 mEq/L (3.5-5.1)
[2023-08-13 08:10] LABS: CREATININE SERUM 1.78 mg/dL (0.55-1.02); GFR 28.69; MAGNESIUM 1.9 mg/dL (1.8-2.4); POTASSIUM 3.29 mEq/L (3.5-5.1)
[2023-08-13 08:48] LABS: HEMATOCRIT 29.6 % (36.0-45.00); HEMOGLOBIN 9.9 g/dL (12.0-15.00); MEAN CELL VOLUME 81.8 fL (80.00-100.00); MEAN CORPUSCULAR HEMOGLOBIN 27.5 pg (27.00-32.0); MEAN CORPUSCULAR HGB CONC 33.6 g/dl (32.0-36.0); PLATELET COUNT 261 K/uL (150-450); RED BLOOD COUNT 3.61 M/uL (4.00-6.00)
[2023-08-16 08:25] LABS: HEMATOCRIT 29.4 % (36.0-45.00); MEAN CELL VOLUME 82.1 fL (80.00-100.00); MEAN CORPUSCULAR HEMOGLOBIN 27.9 pg (27.00-32.0); PLATELET COUNT 294 K/uL (150-450); RED BLOOD COUNT 3.58 M/uL (4.00-6.00); RED CELL DISTRIBUTION WIDTH 17.8 % (11.5-14.5)
[2023-08-16 08:59] LABS: CALCIUM 8.3 mg/dL (8.5-10.1); CREATININE SERUM 1.63 mg/dL (0.55-1.02); GFR 31.76; MAGNESIUM 2.1 mg/dL (1.8-2.4); PHOSPHOROUS 3.1 mg/dL (2.5-4.9); POTASSIUM 3.6 mEq/L (3.5-5.1)
[2023-08-20 07:25] LABS: ALBUMIN 2.8 gm/dL (3.4-5.0); BILIRUBIN TOTAL 0.45 mg/dL (0.3-1.2); CALCIUM 8.4 mg/dL (8.5-10.1); CREATININE SERUM 1.98 mg/dL (0.55-1.02); GFR 25.38; GLOBULINA 3.6 G/DL (2.4-3.5); MAGNESIUM 2.1 mg/dL (1.8-2.4); POTASSIUM 4.13 mEq/L (3.5-5.1); TOTAL PROTEIN 6.4 gm/dL (6.4-8.2)
[2023-08-20 07:48] LABS: HEMATOCRIT 30.5 % (36.0-45.00); MEAN CELL VOLUME 83.9 fL (80.00-100.00); MEAN CORPUSCULAR HEMOGLOBIN 27.2 pg (27.00-32.0); MEAN CORPUSCULAR HGB CONC 32.4 g/dl (32.0-36.0); PLATELET COUNT 255 K/uL (150-450); RED BLOOD COUNT 3.63 M/uL (4.00-6.00); RED CELL DISTRIBUTION WIDTH 18.4 % (11.5-14.5)
[2023-08-20 07:50] LABS: HEMOGLOBIN 9.9 g/dL (12.0-15.00)
[2023-08-21 07:35] LABS: BILIRUBIN TOTAL 0.47 mg/dL (0.3-1.2); CREATININE SERUM 2.03 mg/dL (0.55-1.02); GFR 24.66; GLOBULINA 3.8 G/DL (2.4-3.5); POTASSIUM 4.59 mEq/L (3.5-5.1); TOTAL PROTEIN 6.8 gm/dL (6.4-8.2)
[2023-08-24 07:02] LABS: HEMATOCRIT 30.7 % (36.0-45.00); HEMOGLOBIN 9.9 g/dL (12.0-15.00); MEAN CELL VOLUME 84.5 fL (80.00-100.00); MEAN CORPUSCULAR HEMOGLOBIN 27.2 pg (27.00-32.0); MEAN CORPUSCULAR HGB CONC 32.1 g/dl (32.0-36.0); PLATELET COUNT 202 K/uL (150-450); RED BLOOD COUNT 3.63 M/uL (4.00-6.00); RED CELL DISTRIBUTION WIDTH 18.5 % (11.5-14.5)
[2023-08-24 07:17] LABS: ALBUMIN 2.9 gm/dL (3.4-5.0); BILIRUBIN TOTAL 0.38 mg/dL (0.3-1.2); CALCIUM 8.7 mg/dL (8.5-10.1); CREATININE SERUM 2.32 mg/dL (0.55-1.02); GFR 21.14; GLOBULINA 3.8 G/DL (2.4-3.5); MAGNESIUM 1.9 mg/dL (1.8-2.4); POTASSIUM 4.47 mEq/L (3.5-5.1); TOTAL PROTEIN 6.7 gm/dL (6.4-8.2)
[2023-08-24 07:28] LABS: C-REACTIVE PROTEIN 1.68 MG/DL (0.00-0.29)
[2023-08-24 07:34] LABS: ERYTHROCYTE SEDIMENTATION RATE 45 mm/hr
[2023-08-25 14:07] LABS: PH,URINE 7.5 (5.0-8.0); URINE APPEARANCE Cloudy; URINE BILIRRUBIN Negative (NEGATIVE); URINE BLOOD Small; URINE COLOR Yellow; URINE LEUKOCYTE Large; URINE NITRATE Negative; URINE PROTEIN 30 (NEGATIVE); URINE UROBILINOGEN 0.2 E.U./dl
[2023-08-25 14:10] LABS: URINE BACTERIA 1995.7 uL (0.0-1933); URINE EPITHELIAL CELLS 6.3 uL (0.0-38.8); URINE RBC 77.1 uL (0.0-20.8)
[2023-08-25 14:21] LABS: URINE GLUCOSE 100 MG/DL (NEGATIVE)
[2023-08-25 14:57] LABS: BILIRUBIN TOTAL 0.38 mg/dL (0.3-1.2); CALCIUM 8.5 mg/dL (8.5-10.1); CREATININE SERUM 2.03 mg/dL (0.55-1.02); GFR 24.66; GLOBULINA 3.9 G/DL (2.4-3.5); MAGNESIUM 1.9 mg/dL (1.8-2.4); POTASSIUM 4.33 mEq/L (3.5-5.1); TOTAL PROTEIN 6.9 gm/dL (6.4-8.2)
[2023-08-27 07:57] LABS: HEMATOCRIT 30.2 % (36.0-45.00); HEMOGLOBIN 10.2 g/dL (12.0-15.00); MEAN CELL VOLUME 83.8 fL (80.00-100.00); MEAN CORPUSCULAR HEMOGLOBIN 28.3 pg (27.00-32.0); MEAN CORPUSCULAR HGB CONC 33.7 g/dl (32.0-36.0); PLATELET COUNT 192 K/uL (150-450); RED CELL DISTRIBUTION WIDTH 18.3 % (11.5-14.5)
[2023-08-27 08:08] LABS: BILIRUBIN TOTAL 0.39 mg/dL (0.3-1.2); CALCIUM 8.5 mg/dL (8.5-10.1); CREATININE SERUM 1.97 mg/dL (0.55-1.02); GFR 25.52; GLOBULINA 3.9 G/DL (2.4-3.5); POTASSIUM 4.95 mEq/L (3.5-5.1); TOTAL PROTEIN 6.9 gm/dL (6.4-8.2)
[2023-08-28 06:52] LABS: BILIRUBIN TOTAL 0.31 mg/dL (0.3-1.2); CALCIUM 8.7 mg/dL (8.5-10.1); CREATININE SERUM 1.85 mg/dL (0.55-1.02); GFR 27.44; GLOBULINA 3.9 G/DL (2.4-3.5); POTASSIUM 4.96 mEq/L (3.5-5.1); TOTAL PROTEIN 6.9 gm/dL (6.4-8.2)
[2023-08-28 11:51] LABS: URINE APPEARANCE Cloudy; URINE BILIRRUBIN Negative (NEGATIVE); URINE BLOOD Trace; URINE COLOR Yellow; URINE LEUKOCYTE Large; URINE NITRATE Negative; URINE PROTEIN 30 (NEGATIVE); URINE UROBILINOGEN 0.2 E.U./dl
[2023-08-28 11:53] LABS: URINE BACTERIA 497.6 uL (0.0-1933); URINE EPITHELIAL CELLS 4.4 uL (0.0-38.8); URINE RBC 20.5 uL (0.0-20.8); URINE WBC 1788.9 uL (0.0-23.2)
[2023-08-28 11:55] LABS: URINE GLUCOSE 100 MG/DL (NEGATIVE)
[2023-08-30 07:10] LABS: ALBUMIN 2.9 gm/dL (3.4-5.0); BILIRUBIN TOTAL 0.4 mg/dL (0.3-1.2); CALCIUM 8.5 mg/dL (8.5-10.1); CREATININE SERUM 1.99 mg/dL (0.55-1.02); GFR 25.23; GLOBULINA 3.9 G/DL (2.4-3.5); POTASSIUM 4.83 mEq/L (3.5-5.1); TOTAL PROTEIN 6.8 gm/dL (6.4-8.2)
[2023-08-31 06:24] LABS: HEMATOCRIT 29.9 % (36.0-45.00); HEMOGLOBIN 10.1 g/dL (12.0-15.00); MEAN CELL VOLUME 84.2 fL (80.00-100.00); MEAN CORPUSCULAR HEMOGLOBIN 28.3 pg (27.00-32.0); MEAN CORPUSCULAR HGB CONC 33.6 g/dl (32.0-36.0); PLATELET COUNT 177 K/uL (150-450); RED BLOOD COUNT 3.56 M/uL (4.00-6.00); RED CELL DISTRIBUTION WIDTH 18.2 % (11.5-14.5)
[2023-08-31 06:49] LABS: ERYTHROCYTE SEDIMENTATION RATE 29 mm/hr
[2023-08-31 07:05] LABS: ALBUMIN 3.1 gm/dL (3.4-5.0); BILIRUBIN TOTAL 0.31 mg/dL (0.3-1.2); CALCIUM 8.7 mg/dL (8.5-10.1); CREATININE SERUM 1.94 mg/dL (0.55-1.02); GFR 25.98; GLOBULINA 3.9 G/DL (2.4-3.5); MAGNESIUM 2.1 mg/dL (1.8-2.4); POTASSIUM 4.45 mEq/L (3.5-5.1)
[2023-08-31 07:34] LABS: C-REACTIVE PROTEIN 1.45 MG/DL (0.00-0.29)
[2023-09-01 13:17] LABS: INR 0.99; PARTIAL THROMBOPLASTIN TIME 33.9 SECONDS (22.0-34.0); PROTHROMBIN TIME 10.4 SECONDS (9.0-11.5)
[2023-09-03 08:13] LABS: HEMATOCRIT 29.8 % (36.0-45.00); HEMOGLOBIN 9.9 g/dL (12.0-15.00); MEAN CELL VOLUME 84.9 fL (80.00-100.00); MEAN CORPUSCULAR HEMOGLOBIN 28.3 pg (27.00-32.0); MEAN CORPUSCULAR HGB CONC 33.4 g/dl (32.0-36.0); PLATELET COUNT 164 K/uL (150-450); RED BLOOD COUNT 3.51 M/uL (4.00-6.00); RED CELL DISTRIBUTION WIDTH 17.7 % (11.5-14.5)
[2023-09-03 08:20] LABS: ALBUMIN 2.8 gm/dL (3.4-5.0); BILIRUBIN TOTAL 0.43 mg/dL (0.3-1.2); CALCIUM 8.4 mg/dL (8.5-10.1); CREATININE SERUM 1.8 mg/dL (0.55-1.02); GFR 28.33; GLOBULINA 3.7 G/DL (2.4-3.5); PHOSPHOROUS 2.7 mg/dL (2.5-4.9); POTASSIUM 4.66 mEq/L (3.5-5.1); TOTAL PROTEIN 6.5 gm/dL (6.4-8.2)
[2023-09-07 08:49] LABS: HEMATOCRIT 27.5 % (36.0-45.00); MEAN CELL VOLUME 84.6 fL (80.00-100.00); MEAN CORPUSCULAR HEMOGLOBIN 28.9 pg (27.00-32.0); MEAN CORPUSCULAR HGB CONC 34.2 g/dl (32.0-36.0); PLATELET COUNT 174 K/uL (150-450); RED BLOOD COUNT 3.25 M/uL (4.00-6.00); RED CELL DISTRIBUTION WIDTH 17.6 % (11.5-14.5)
[2023-09-07 09:00] LABS: HEMOGLOBIN 9.4 g/dL (12.0-15.00)
[2023-09-07 09:02] LABS: ALBUMIN 2.7 gm/dL (3.4-5.0); BILIRUBIN TOTAL 0.3 mg/dL (0.3-1.2); CALCIUM 8.3 mg/dL (8.5-10.1); CREATININE SERUM 2.07 mg/dL (0.55-1.02); GFR 24.11; GLOBULINA 3.6 G/DL (2.4-3.5); MAGNESIUM 2.2 mg/dL (1.8-2.4); PHOSPHOROUS 4.1 mg/dL (2.5-4.9); POTASSIUM 4.19 mEq/L (3.5-5.1); TOTAL PROTEIN 6.3 gm/dL (6.4-8.2)
[2023-09-07 09:05] LABS: C-REACTIVE PROTEIN 1.5 MG/DL (0.00-0.29)
[2023-09-07 09:28] LABS: ERYTHROCYTE SEDIMENTATION RATE 16 mm/hr
[2023-09-11 07:07] LABS: ALBUMIN 2.9 gm/dL (3.4-5.0); BILIRUBIN TOTAL 0.31 mg/dL (0.3-1.2); CALCIUM 8.2 mg/dL (8.5-10.1); CREATININE SERUM 2.05 mg/dL (0.55-1.02); GFR 24.38; GLOBULINA 3.5 G/DL (2.4-3.5); POTASSIUM 4.34 mEq/L (3.5-5.1); TOTAL PROTEIN 6.4 gm/dL (6.4-8.2)
[2023-09-11 07:10] LABS: C-REACTIVE PROTEIN 0.5 MG/DL (0.00-0.29)
[2023-09-11 07:23] LABS: HEMATOCRIT 28.9 % (36.0-45.00); MEAN CELL VOLUME 85.3 fL (80.00-100.00); MEAN CORPUSCULAR HGB CONC 33.4 g/dl (32.0-36.0); PLATELET COUNT 208 K/uL (150-450); RED BLOOD COUNT 3.39 M/uL (4.00-6.00); RED CELL DISTRIBUTION WIDTH 17.8 % (11.5-14.5)
[2023-09-11 07:57] LABS: HEMOGLOBIN 9.7 g/dL (12.0-15.00); MEAN CORPUSCULAR HEMOGLOBIN 28.6 pg (27.00-32.0)
[2023-09-11 08:01] LABS: ERYTHROCYTE SEDIMENTATION RATE 38 mm/hr
[2023-09-14 12:21] LABS: HEMATOCRIT 31.1 % (36.0-45.00); HEMOGLOBIN 10.2 g/dL (12.0-15.00); MEAN CELL VOLUME 85.2 fL (80.00-100.00); MEAN CORPUSCULAR HEMOGLOBIN 27.9 pg (27.00-32.0); MEAN CORPUSCULAR HGB CONC 32.8 g/dl (32.0-36.0); PLATELET COUNT 187 K/uL (150-450); RED BLOOD COUNT 3.65 M/uL (4.00-6.00); RED CELL DISTRIBUTION WIDTH 17.1 % (11.5-14.5)
[2023-09-14 12:59] LABS: INR 0.98; PARTIAL THROMBOPLASTIN TIME 29.9 SECONDS (22.0-34.0); PROTHROMBIN TIME 10.3 SECONDS (9.0-11.5)
[2023-09-14 13:05] LABS: ALBUMIN 2.8 gm/dL (3.4-5.0); BILIRUBIN TOTAL 0.55 mg/dL (0.3-1.2); CALCIUM 8.4 mg/dL (8.5-10.1); CREATININE SERUM 1.62 mg/dL (0.55-1.02); GFR 31.99; GLOBULINA 3.2 G/DL (2.4-3.5); POTASSIUM 4.17 mEq/L (3.5-5.1)
[2023-09-17 07:37] LABS: ALBUMIN 2.9 gm/dL (3.4-5.0); BILIRUBIN TOTAL 0.46 mg/dL (0.3-1.2); CALCIUM 8.5 mg/dL (8.5-10.1); CREATININE SERUM 1.75 mg/dL (0.55-1.02); GFR 29.26; GLOBULINA 3.5 G/DL (2.4-3.5); MAGNESIUM 1.9 mg/dL (1.8-2.4); PHOSPHOROUS 3.2 mg/dL (2.5-4.9); POTASSIUM 4.31 mEq/L (3.5-5.1); TOTAL PROTEIN 6.4 gm/dL (6.4-8.2)
[2023-09-17 08:16] LABS: HEMATOCRIT 30.7 % (36.0-45.00); HEMOGLOBIN 10.1 g/dL (12.0-15.00); MEAN CORPUSCULAR HEMOGLOBIN 28.2 pg (27.00-32.0); MEAN CORPUSCULAR HGB CONC 32.8 g/dl (32.0-36.0); PLATELET COUNT 195 K/uL (150-450); RED BLOOD COUNT 3.57 M/uL (4.00-6.00); RED CELL DISTRIBUTION WIDTH 16.9 % (11.5-14.5)
[2023-09-20 06:32] LABS: HEMATOCRIT 29.2 % (36.0-45.00); HEMOGLOBIN 9.7 g/dL (12.0-15.00); MEAN CELL VOLUME 86.3 fL (80.00-100.00); MEAN CORPUSCULAR HEMOGLOBIN 28.7 pg (27.00-32.0); MEAN CORPUSCULAR HGB CONC 33.2 g/dl (32.0-36.0); PLATELET COUNT 163 K/uL (150-450); RED BLOOD COUNT 3.39 M/uL (4.00-6.00); RED CELL DISTRIBUTION WIDTH 16.6 % (11.5-14.5)
[2023-09-20 06:58] LABS: ALBUMIN 2.7 gm/dL (3.4-5.0); BILIRUBIN TOTAL 0.58 mg/dL (0.3-1.2); CALCIUM 8.9 mg/dL (8.5-10.1); CREATININE SERUM 1.86 mg/dL (0.55-1.02); GFR 27.27; GLOBULINA 3.3 G/DL (2.4-3.5); MAGNESIUM 1.8 mg/dL (1.8-2.4); PHOSPHOROUS 3.6 mg/dL (2.5-4.9); POTASSIUM 4.47 mEq/L (3.5-5.1)
[2023-09-20 15:56] LABS: URINE APPEARANCE Cloudy; URINE BILIRRUBIN Negative (NEGATIVE); URINE BLOOD Large; URINE COLOR Orange; URINE GLUCOSE Negative (NEGATIVE); URINE LEUKOCYTE Moderate; URINE NITRATE Negative; URINE UROBILINOGEN 0.2 E.U./dl
[2023-09-20 16:03] LABS: URINE BACTERIA 385.5 uL (0.0-1933); URINE WBC 574.2 uL (0.0-23.2)
[2023-09-20 16:04] LABS: URINE EPITHELIAL CELLS 0.9 uL (0.0-38.8); URINE PROTEIN 100 (NEGATIVE)
[2023-09-23 07:54] LABS: HEMATOCRIT 27.9 % (36.0-45.00); MEAN CELL VOLUME 84.4 fL (80.00-100.00); MEAN CORPUSCULAR HGB CONC 34.4 g/dl (32.0-36.0); PLATELET COUNT 166 K/uL (150-450); RED BLOOD COUNT 3.31 M/uL (4.00-6.00); RED CELL DISTRIBUTION WIDTH 16.9 % (11.5-14.5)
[2023-09-23 08:12] LABS: HEMOGLOBIN 9.6 g/dL (12.0-15.00)
[2023-09-23 08:29] LABS: ALBUMIN 2.7 gm/dL (3.4-5.0); BILIRUBIN TOTAL 0.42 mg/dL (0.3-1.2); CALCIUM 8.2 mg/dL (8.5-10.1); CREATININE SERUM 1.55 mg/dL (0.55-1.02); GFR 33.66; GLOBULINA 3.1 G/DL (2.4-3.5); MAGNESIUM 1.9 mg/dL (1.8-2.4); PHOSPHOROUS 3.5 mg/dL (2.5-4.9); POTASSIUM 4.27 mEq/L (3.5-5.1); TOTAL PROTEIN 5.8 gm/dL (6.4-8.2)
[2023-09-25 06:41] LABS: HEMATOCRIT 32.4 % (36.0-45.00); MEAN CORPUSCULAR HGB CONC 33.6 g/dl (32.0-36.0); PLATELET COUNT 197 K/uL (150-450); RED BLOOD COUNT 3.81 M/uL (4.00-6.00); RED CELL DISTRIBUTION WIDTH 16.7 % (11.5-14.5)
[2023-09-25 06:54] LABS: ALBUMIN 3.2 gm/dL (3.4-5.0); BILIRUBIN TOTAL 0.59 mg/dL (0.3-1.2); CALCIUM 9.1 mg/dL (8.5-10.1); CREATININE SERUM 1.83 mg/dL (0.55-1.02); GFR 27.79; GLOBULINA 3.6 G/DL (2.4-3.5); MAGNESIUM 2.4 mg/dL (1.8-2.4); PHOSPHOROUS 3.7 mg/dL (2.5-4.9); POTASSIUM 4.77 mEq/L (3.5-5.1); TOTAL PROTEIN 6.8 gm/dL (6.4-8.2)
[2023-09-25 06:57] LABS: HEMOGLOBIN 10.9 g/dL (12.0-15.00); MEAN CORPUSCULAR HEMOGLOBIN 28.6 pg (27.00-32.0)
[2023-09-25] MEDS ORDERED: PRE PROTEIN1 EACH PO (11:55)
[2023-09-25] MEDS ORDERED: INTEGRA PLUS C1 EACH PO (11:55)
[2023-09-25] MEDS ORDERED: GABAPENTIN300 MG PO (11:55)
[2023-09-25] MEDS ORDERED: NeuRONTin 400MG CAPS PO (11:55)
[2023-09-25] MEDS ORDERED: VITAMIN D3125 MC2 PO (11:56)
[2023-09-25] MEDS ORDERED: INTESTINEX680 M1 PO (11:56)
[2023-09-25] MEDS ORDERED: CYANOCOBAL1000 MCG/1 IM (11:56)
== END 2023-09-25 15:40 | disposition home or self-care (01) | DRG 872 ==
LOC: ER 16:40 → ICU-2 20:08 → MEDJ 20:08 → ICU 20:08 → MEDJ 08-11 18:40 → MEDI 09-08 10:49
PROVIDERS: General Practice; Internal Medicine; Internal Medicine Infectious Disease; Internal Medicine Nephrology; ADMIT Internal Medicine; ATTEND Internal Medicine
PROC: BW21ZZZ Computerized Tomography (CT Scan) of Abdomen and Pelvis (ICD-10-PCS; 2023-08-07)
PROC: 0W9J30Z Drainage of Pelvic Cavity with Drainage Device, Percutaneous Approach (ICD-10-PCS; principal; 2023-08-08)
PROC: 02HV33Z Insertion of Infusion Device into Superior Vena Cava, Percutaneous Approach (ICD-10-PCS; 2023-08-09)
PROC: 8E0ZXY6 Isolation (ICD-10-PCS; 2023-08-10)
PROC: BW21ZZZ Computerized Tomography (CT Scan) of Abdomen and Pelvis (ICD-10-PCS; 2023-08-30)
PROC: BU46ZZZ Ultrasonography of Uterus (ICD-10-PCS; 2023-08-30)
PROC: 0T9B30Z Drainage of Bladder with Drainage Device, Percutaneous Approach (ICD-10-PCS; 2023-09-01)
PROC: 0TJB8ZZ Inspection of Bladder, Via Natural or Artificial Opening Endoscopic (ICD-10-PCS; 2023-09-01)
PROC: 0T763DZ Dilation of Right Ureter with Intraluminal Device, Percutaneous Approach (ICD-10-PCS; 2023-09-01)
PROC: BW21ZZZ Computerized Tomography (CT Scan) of Abdomen and Pelvis (ICD-10-PCS; 2023-09-23)
DX: A41.9 Sepsis, unspecified organism (principal); N39.0 Urinary tract infection, site not specified; N17.9 Acute kidney failure, unspecified; N13.30 Unspecified hydronephrosis; N73.9 Female pelvic inflammatory disease, unspecified; N36.8 Other specified disorders of urethra; N20.0 Calculus of kidney; D63.1 Anemia in chronic kidney disease; R65.20 Severe sepsis without septic shock; B96.1 Klebsiella pneumoniae [K. pneumoniae] as the cause of diseases classified elsewhere; N18.31 Chronic kidney disease, stage 3a; B96.20 Unspecified Escherichia coli [E. coli] as the cause of diseases classified elsewhere

== ENCOUNTER 2023-11-12 19:47 | Emergency (ER) | payer OTHER ==
[~2023-11-12] VITALS: Ht 167.6 cm; Wt 77.1 kg
[~2023-11-12 19:47] MED LIST changes: +CYANOCOBAL1000 MCG/1 IM; +GABAPENTIN300 MG PO; +GRALISE600 MG; +INTEGRA PLUS C1 EACH PO; +NeuRONTin 400MG CAPS PO; +PANTOPRAZOLE SO40 MG PO; +PRE PROTEIN1 EACH PO; +VITAMIN D3125 MC2 PO
[2023-11-12 21:26] LABS: HEMATOCRIT 33.5 % (36.0-45.00); HEMOGLOBIN 11.2 g/dL (12.0-15.00); MEAN CELL VOLUME 82.9 fL (80.00-100.00); MEAN CORPUSCULAR HEMOGLOBIN 27.6 pg (27.00-32.0); MEAN CORPUSCULAR HGB CONC 33.3 g/dl (32.0-36.0); PLATELET COUNT 202 K/uL (150-450); RED BLOOD COUNT 4.05 M/uL (4.00-6.00); RED CELL DISTRIBUTION WIDTH 15.6 % (11.5-14.5)
[2023-11-12 21:46] LABS: INR 1.06; PARTIAL THROMBOPLASTIN TIME 35.2 SECONDS (22.0-34.0); PROTHROMBIN TIME 11.1 SECONDS (9.0-11.5)
[2023-11-12 21:54] LABS: ALBUMIN 3.2 gm/dL (3.4-5.0); BILIRUBIN TOTAL 0.97 mg/dL (0.3-1.2); CALCIUM 9.6 mg/dL (8.5-10.1); CREATININE SERUM 3.25 mg/dL (0.55-1.02); GFR 14.32; GLOBULINA 5.6 G/DL (2.4-3.5); POTASSIUM 3.09 mEq/L (3.5-5.1); TOTAL PROTEIN 8.8 gm/dL (6.4-8.2)
[2023-11-13 02:32] LABS: PH,URINE 6.5 (5.0-8.0); URINE APPEARANCE Turbid; URINE BILIRRUBIN Negative (NEGATIVE); URINE BLOOD Moderate; URINE COLOR Yellow; URINE GLUCOSE Negative (NEGATIVE); URINE LEUKOCYTE Large; URINE NITRATE Negative; URINE UROBILINOGEN 0.2 E.U./dl
[2023-11-13 02:36] LABS: URINE BACTERIA 6060.3 uL (0.0-1933); URINE EPITHELIAL CELLS 60.4 uL (0.0-38.8); URINE RBC 47.5 uL (0.0-20.8); URINE WBC 3922.9 uL (0.0-23.2)
[2023-11-13 02:51] LABS: URINE PROTEIN 100 (NEGATIVE)
== END 2023-11-13 13:21 ==
LOC: ER 19:48
PROVIDERS: General Practice
DX: N39.0 Urinary tract infection, site not specified (principal); N17.8 Other acute kidney failure; R11.10 Vomiting, unspecified; Z20.822 Contact with and (suspected) exposure to COVID-19; Z88.2 Allergy status to sulfonamides; Z88.5 Allergy status to narcotic agent

== ENCOUNTER 2023-11-23 12:36 | Inpatient (IN) | payer OTHER ==
[~2023-11-23] VITALS: Ht 152.4 cm; Wt 65.8 kg
[2023-11-23] MEDS ORDERED: 0.9 % SODIUM CHLORIDE 1,000 ML IV SCH (14:00)
[2023-11-23] MEDS ORDERED: CEFTRIAXONE SODIUM 1,000 MG VIAL IV ONE (14:15)
[2023-11-23 14:30] LABS: PH,URINE 6.5 (5.0-8.0); URINE APPEARANCE Turbid; URINE BILIRRUBIN Negative (NEGATIVE); URINE BLOOD Large; URINE COLOR Yellow; URINE GLUCOSE Negative (NEGATIVE); URINE LEUKOCYTE Large; URINE NITRATE Negative; URINE UROBILINOGEN 0.2 E.U./dl
[2023-11-23 14:31] LABS: URINE RBC 207.1 uL (0.0-20.8)
[2023-11-23 15:13] LABS: URINE BACTERIA > 9821.5 uL (0.0-1933); URINE EPITHELIAL CELLS > 201.7 uL (0.0-38.8); URINE PROTEIN 300 (NEGATIVE); URINE WBC > 5548.3 uL (0.0-23.2); URINE YEAST FEW /hpf
[2023-11-23 17:33] LABS: HEMATOCRIT 30.4 % (36.0-45.00); HEMOGLOBIN 10.1 g/dL (12.0-15.00); MEAN CELL VOLUME 84.5 fL (80.00-100.00); MEAN CORPUSCULAR HEMOGLOBIN 28.2 pg (27.00-32.0); MEAN CORPUSCULAR HGB CONC 33.4 g/dl (32.0-36.0); PLATELET COUNT 202 K/uL (150-450); RED CELL DISTRIBUTION WIDTH 15.6 % (11.5-14.5)
[2023-11-23 17:37] LABS: ERYTHROCYTE SEDIMENTATION RATE 113 mm/hr
[2023-11-23 17:46] LABS: INR 1.1; PARTIAL THROMBOPLASTIN TIME 34.8 SECONDS (22.0-34.0); PROTHROMBIN TIME 11.5 SECONDS (9.0-11.5)
[2023-11-23 17:48] LABS: CREATININE SERUM 3.01 mg/dL (0.55-1.02); GFR 15.65; POTASSIUM 3.38 mEq/L (3.5-5.1)
[2023-11-23] MEDS ORDERED: IRON FUM,PS/FOLIC/BCOMP,C NO.9 1 CAP CAPSULE PO SCH (18:25)
[2023-11-23] MEDS ORDERED: ACETAMINOPHEN 500 MG GEL..CAP PO PRN (19:15)
[2023-11-23] MEDS ORDERED: MEROPENEM 500 MG/VIAL VIAL IV ONE (19:20)
[2023-11-23] MEDS ORDERED: CLONAZEPAM 0.5 MG TABLET PO SCH (21:00)
[2023-11-24] MEDS ORDERED: MEROPENEM 500 MG/VIAL VIAL IV SCH (05:00)
[2023-11-24] MEDS ORDERED: SODIUM BICARBONATE 325 MG TABLET PO SCH (09:00)
[2023-11-24] MEDS ORDERED: OXYBUTYNIN CHLORIDE 5 MG TABLET PO SCH (09:00)
[2023-11-24] MEDS ORDERED: FAMOTIDINE/PF 20 MG in 0.9 % SODIUM CHLORIDE 8 ML IV PUSH SCH (09:00)
[2023-11-24] MEDS ORDERED: SUCRALFATE 1 G TABLET PO SCH (09:00)
[2023-11-24] MEDS ORDERED: ENOXAPARIN SODIUM 40 MG/0.4 ML SYRINGE SUBCUTANEO SCH (09:00)
[2023-11-24] MEDS ORDERED: MIDAZOLAM HCL 2 MG/2 ML VIAL IV PUSH ONE (16:00)
[2023-11-24] MEDS ORDERED: fentaNYL CITRATE 50 MCG/ML AMPUL IV PUSH ONE ×2 (16:00→19:30)
[2023-11-24] MEDS ORDERED: MORPHINE SULFATE 2 MG/ML CARTRIDGE IV PRN (21:45)
[2023-11-24] MEDS ORDERED: LINEZOLID 600 MG TABLET PO SCH (22:16)
[2023-11-25] MEDS ORDERED: GABAPENTIN 300 MG CAPSULE PO SCH (06:08)
[2023-11-25 07:23] LABS: HEMATOCRIT 24.5 % (36.0-45.00); MEAN CORPUSCULAR HGB CONC 33.5 g/dl (32.0-36.0); PLATELET COUNT 171 K/uL (150-450); RED BLOOD COUNT 2.96 M/uL (4.00-6.00); RED CELL DISTRIBUTION WIDTH 15.4 % (11.5-14.5)
[2023-11-25] MEDS ORDERED: 0.9 % SODIUM CHLORIDE 1,000 ML IV SCH (07:30)
[2023-11-25 07:33] LABS: HEMOGLOBIN 8.2 g/dL (12.0-15.00); MEAN CORPUSCULAR HEMOGLOBIN 27.7 pg (27.00-32.0)
[2023-11-25] MEDS ORDERED: ENOXAPARIN SODIUM 30 MG/0.3 ML SYRINGE SUBCUTANEO SCH (09:00)
[2023-11-26 08:23] LABS: ALBUMIN 2.1 gm/dL (3.4-5.0); BILIRUBIN TOTAL 0.4 mg/dL (0.3-1.2); CREATININE SERUM 2.3 mg/dL (0.55-1.02); GFR 21.35; GLOBULINA 3.3 G/DL (2.4-3.5); MAGNESIUM 1.7 mg/dL (1.8-2.4); PHOSPHOROUS 3.1 mg/dL (2.5-4.9); POTASSIUM 3.38 mEq/L (3.5-5.1); TOTAL PROTEIN 5.4 gm/dL (6.4-8.2)
[2023-11-26 08:33] LABS: C-REACTIVE PROTEIN 7.37 MG/DL (0.00-0.29)
[2023-11-26 09:13] LABS: HEMATOCRIT 24.8 % (36.0-45.00); MEAN CELL VOLUME 84.6 fL (80.00-100.00); MEAN CORPUSCULAR HGB CONC 33.5 g/dl (32.0-36.0); PLATELET COUNT 187 K/uL (150-450); RED BLOOD COUNT 2.93 M/uL (4.00-6.00); RED CELL DISTRIBUTION WIDTH 15.3 % (11.5-14.5)
[2023-11-26 09:25] LABS: HEMOGLOBIN 8.3 g/dL (12.0-15.00); MEAN CORPUSCULAR HEMOGLOBIN 28.3 pg (27.00-32.0)
[2023-11-26] MEDS ORDERED: MAGNESIUM SULFATE IN WATER 2 GM/50 ML PIGGYBAG IV STA (12:28)
[2023-11-26] MEDS ORDERED: POTASSIUM BICARBONATE/CIT AC 25 MEQ TABLET.EFF PO ONE (12:30)
[2023-11-26] MEDS ORDERED: AMINO ACIDS 1 EACH TABLET PO SCH (13:00)
[2023-11-26] MEDS ORDERED: ONDANSETRON HCL 2 MG/ML VIAL IV PRN (21:00)
[2023-11-26] MEDS ORDERED: PANTOPRAZOLE SODIUM 40 MG/VIAL VIAL IV ONE (21:00)
[2023-11-27] MEDS ORDERED: FLUCONAZOLE IN NACL,ISO-OSM 200 MG/100 ML PIGGYBAG IV ONE (06:45)
[2023-11-27] MEDS ORDERED: PANTOPRAZOLE SODIUM 40 MG TABLET.DR PO SCH (09:00)
[2023-11-27] MEDS ORDERED: LACTOBACILLUS ACIDOPHILUS 1 CAP CAP PO SCH (09:00)
[2023-11-27 13:25] LABS: HEMATOCRIT 25.6 % (36.0-45.00); MEAN CELL VOLUME 84.2 fL (80.00-100.00); MEAN CORPUSCULAR HEMOGLOBIN 27.8 pg (27.00-32.0); MEAN CORPUSCULAR HGB CONC 33.1 g/dl (32.0-36.0); PLATELET COUNT 182 K/uL (150-450); RED BLOOD COUNT 3.05 M/uL (4.00-6.00); RED CELL DISTRIBUTION WIDTH 16.5 % (11.5-14.5)
[2023-11-27 13:26] LABS: HEMOGLOBIN 8.5 g/dL (12.0-15.00)
[2023-11-27] MEDS ORDERED: FLUCONAZOLE IN NACL,ISO-OSM 50 ML IV SCH (17:00)
[2023-11-27] MEDS ORDERED: FLUCONAZOLE IN NACL,ISO-OSM 2 MG/ML ML IV SCH (17:00)
[2023-11-27] MEDS ORDERED: CEFTAZIDIME/AVIBACTAM 0.94GM/100ML NSS PB IV SCH (21:00)
[2023-11-28] MEDS ORDERED: RINGERS SOLUTION,LACTATED 1,000 ML IV SCH (18:45)
[2023-11-29 05:05] LABS: HEMATOCRIT 24.8 % (36.0-45.00); MEAN CELL VOLUME 84.5 fL (80.00-100.00); MEAN CORPUSCULAR HGB CONC 33.1 g/dl (32.0-36.0); RED BLOOD COUNT 2.94 M/uL (4.00-6.00); RED CELL DISTRIBUTION WIDTH 15.8 % (11.5-14.5)
[2023-11-29 05:23] LABS: CALCIUM 8.5 mg/dL (8.5-10.1); CREATININE SERUM 2.39 mg/dL (0.55-1.02); GFR 20.42; MAGNESIUM 2.4 mg/dL (1.8-2.4); POTASSIUM 3.49 mEq/L (3.5-5.1)
[2023-11-29 05:26] LABS: MEAN CORPUSCULAR HEMOGLOBIN 27.8 pg (27.00-32.0)
[2023-11-29 05:31] LABS: HEMOGLOBIN 8.2 g/dL (12.0-15.00)
[2023-11-29 05:32] LABS: PLATELET COUNT 188 K/uL (150-450)
[2023-11-29 08:24] LABS: URINE APPEARANCE Turbid; URINE BILIRRUBIN Negative (NEGATIVE); URINE BLOOD Large; URINE BLOOD Moderate; URINE COLOR Yellow; URINE GLUCOSE Negative (NEGATIVE); URINE LEUKOCYTE Large; URINE NITRATE Negative; URINE PROTEIN 30 (NEGATIVE); URINE UROBILINOGEN 0.2 E.U./dl
[2023-11-29 08:28] LABS: URINE BACTERIA 3180.1 uL (0.0-1933); URINE BACTERIA 823.9 uL (0.0-1933); URINE EPITHELIAL CELLS 14.2 uL (0.0-38.8); URINE EPITHELIAL CELLS 16.3 uL (0.0-38.8); URINE RBC 57.3 uL (0.0-20.8); URINE RBC 681.8 uL (0.0-20.8); URINE WBC 4437.4 uL (0.0-23.2)
[2023-11-29] MEDS ORDERED: SOD FERRIC GLUC COMPLX/SUCROSE 62.5 MG in 0.9 % SODIUM CHLORIDE 50 ML IV SCH (09:00)
[2023-11-29 09:22] LABS: URINE PROTEIN 100 (NEGATIVE); URINE WBC > 5548.3 uL (0.0-23.2)
[2023-11-29] MEDS ORDERED: POTASSIUM BICARBONATE/CIT AC 25 MEQ TABLET.EFF PO ONE (09:45)
[2023-11-29] MEDS ORDERED: ORPHENADRINE CITRATE 30 MG/ML AMPUL IV SCH (21:00)
[2023-11-29] MEDS ORDERED: MORPHINE SULFATE 2 MG/ML CARTRIDGE IV PRN (22:30)
[2023-11-30] MEDS ORDERED: CLONAZEPAM 0.5 MG TABLET PO SCH (22:45)
[2023-12-01 06:52] LABS: MEAN CELL VOLUME 83.2 fL (80.00-100.00); MEAN CORPUSCULAR HGB CONC 33.5 g/dl (32.0-36.0); PLATELET COUNT 177 K/uL (150-450); RED BLOOD COUNT 2.66 M/uL (4.00-6.00); RED CELL DISTRIBUTION WIDTH 16.4 % (11.5-14.5)
[2023-12-01 06:59] LABS: ALBUMIN 2.1 gm/dL (3.4-5.0); BILIRUBIN TOTAL 0.49 mg/dL (0.3-1.2); CALCIUM 8.4 mg/dL (8.5-10.1); CREATININE SERUM 2.21 mg/dL (0.55-1.02); GFR 22.35; GLOBULINA 3.3 G/DL (2.4-3.5); MAGNESIUM 2.2 mg/dL (1.8-2.4); PHOSPHOROUS 2.8 mg/dL (2.5-4.9); POTASSIUM 3.4 mEq/L (3.5-5.1); TOTAL PROTEIN 5.4 gm/dL (6.4-8.2)
[2023-12-01 08:09] LABS: HEMATOCRIT 22.2 % (36.0-45.00); MEAN CORPUSCULAR HEMOGLOBIN 27.8 pg (27.00-32.0)
[2023-12-01 08:30] LABS: HEMOGLOBIN 7.4 g/dL (12.0-15.00)
[2023-12-01 09:38] LABS: HEMATOCRIT 25.9 % (36.0-45.00); MEAN CELL VOLUME 84.4 fL (80.00-100.00); MEAN CORPUSCULAR HGB CONC 32.8 g/dl (32.0-36.0); PLATELET COUNT 199 K/uL (150-450); RED BLOOD COUNT 3.07 M/uL (4.00-6.00); RED CELL DISTRIBUTION WIDTH 16.3 % (11.5-14.5)
[2023-12-01 09:41] LABS: MEAN CORPUSCULAR HEMOGLOBIN 27.6 pg (27.00-32.0)
[2023-12-01 09:42] LABS: HEMOGLOBIN 8.5 g/dL (12.0-15.00)
[2023-12-01] MEDS ORDERED: FAMOTIDINE/PF 20 MG/2 ML VIAL IV PUSH ONE (18:15)
[2023-12-02] MEDS ORDERED: MORPHINE SULFATE 2 MG/ML CARTRIDGE IV PRN (04:30)
[2023-12-02 18:38] LABS: ob NEGATIVE (NEGATIVE)
[2023-12-02] MEDS ORDERED: FAMOtidine 20 MG TABLET PO SCH (21:00)
[2023-12-03 07:23] LABS: ALBUMIN 2.1 gm/dL (3.4-5.0); BILIRUBIN TOTAL 0.54 mg/dL (0.3-1.2); CALCIUM 8.2 mg/dL (8.5-10.1); CREATININE SERUM 2.14 mg/dL (0.55-1.02); GFR 23.2; GLOBULINA 3.4 G/DL (2.4-3.5); PHOSPHOROUS 2.5 mg/dL (2.5-4.9); POTASSIUM 3.35 mEq/L (3.5-5.1); TOTAL PROTEIN 5.5 gm/dL (6.4-8.2)
[2023-12-03 07:43] LABS: MEAN CELL VOLUME 84.6 fL (80.00-100.00); MEAN CORPUSCULAR HGB CONC 33.6 g/dl (32.0-36.0); PLATELET COUNT 185 K/uL (150-450); RED BLOOD COUNT 2.67 M/uL (4.00-6.00); RED CELL DISTRIBUTION WIDTH 16.4 % (11.5-14.5)
[2023-12-03 07:57] LABS: MEAN CORPUSCULAR HEMOGLOBIN 28.4 pg (27.00-32.0)
[2023-12-03 07:58] LABS: HEMATOCRIT 22.6 % (36.0-45.00); HEMOGLOBIN 7.6 g/dL (12.0-15.00)
[2023-12-03 08:57] LABS: HEMATOCRIT 26.3 % (36.0-45.00); MEAN CORPUSCULAR HGB CONC 32.9 g/dl (32.0-36.0); PLATELET COUNT 198 K/uL (150-450); RED BLOOD COUNT 3.06 M/uL (4.00-6.00); RED CELL DISTRIBUTION WIDTH 16.8 % (11.5-14.5)
[2023-12-03 08:58] LABS: HEMOGLOBIN 8.7 g/dL (12.0-15.00); MEAN CORPUSCULAR HEMOGLOBIN 28.4 pg (27.00-32.0)
[2023-12-06 06:29] LABS: MEAN CORPUSCULAR HGB CONC 34.1 g/dl (32.0-36.0); PLATELET COUNT 207 K/uL (150-450); RED BLOOD COUNT 2.77 M/uL (4.00-6.00); RED CELL DISTRIBUTION WIDTH 17.6 % (11.5-14.5)
[2023-12-06 06:45] LABS: HEMATOCRIT 23.6 % (36.0-45.00); MEAN CORPUSCULAR HEMOGLOBIN 28.8 pg (27.00-32.0)
[2023-12-06 06:58] LABS: ALBUMIN 2.4 gm/dL (3.4-5.0); BILIRUBIN TOTAL 0.64 mg/dL (0.3-1.2); CALCIUM 8.6 mg/dL (8.5-10.1); CREATININE SERUM 2.25 mg/dL (0.55-1.02); GFR 21.9; GLOBULINA 3.8 G/DL (2.4-3.5); MAGNESIUM 2.5 mg/dL (1.8-2.4); POTASSIUM 3.25 mEq/L (3.5-5.1); TOTAL PROTEIN 6.2 gm/dL (6.4-8.2)
[2023-12-06 15:29] LABS: HEMATOCRIT 24.3 % (36.0-45.00); MEAN CORPUSCULAR HGB CONC 33.3 g/dl (32.0-36.0); PLATELET COUNT 197 K/uL (150-450); RED BLOOD COUNT 2.82 M/uL (4.00-6.00); RED CELL DISTRIBUTION WIDTH 17.5 % (11.5-14.5)
[2023-12-06 15:30] LABS: HEMOGLOBIN 8.1 g/dL (12.0-15.00); MEAN CORPUSCULAR HEMOGLOBIN 28.7 pg (27.00-32.0)
[2023-12-06] MEDS ORDERED: SOD FERRIC GLUC COMPLX/SUCROSE 62.5 MG in 0.9 % SODIUM CHLORIDE 50 ML IV SCH (16:07)
[2023-12-06] MEDS ORDERED: POTASSIUM BICARBONATE/CIT AC 25 MEQ TABLET.EFF PO SCH (17:52)
[2023-12-08 05:56] LABS: HEMATOCRIT 25.5 % (36.0-45.00); MEAN CELL VOLUME 85.2 fL (80.00-100.00); MEAN CORPUSCULAR HGB CONC 33.6 g/dl (32.0-36.0); PLATELET COUNT 216 K/uL (150-450); RED BLOOD COUNT 2.99 M/uL (4.00-6.00); RED CELL DISTRIBUTION WIDTH 17.9 % (11.5-14.5)
[2023-12-08 06:02] LABS: ALBUMIN 2.5 gm/dL (3.4-5.0); BILIRUBIN TOTAL 0.74 mg/dL (0.3-1.2); CALCIUM 8.7 mg/dL (8.5-10.1); CREATININE SERUM 2.06 mg/dL (0.55-1.02); GFR 24.24; GLOBULINA 4.1 G/DL (2.4-3.5); MAGNESIUM 1.9 mg/dL (1.8-2.4); POTASSIUM 4.16 mEq/L (3.5-5.1); TOTAL PROTEIN 6.6 gm/dL (6.4-8.2)
[2023-12-08 06:05] LABS: HEMOGLOBIN 8.6 g/dL (12.0-15.00); MEAN CORPUSCULAR HEMOGLOBIN 28.7 pg (27.00-32.0)
[2023-12-10 07:26] LABS: ALBUMIN 2.5 gm/dL (3.4-5.0); CALCIUM 8.6 mg/dL (8.5-10.1); CREATININE SERUM 2.34 mg/dL (0.55-1.02); GFR 20.93; PHOSPHOROUS 2.7 mg/dL (2.5-4.9); POTASSIUM 4.14 mEq/L (3.5-5.1)
[2023-12-11 07:13] LABS: ALBUMIN 2.4 gm/dL (3.4-5.0); BILIRUBIN TOTAL 0.64 mg/dL (0.3-1.2); CALCIUM 8.6 mg/dL (8.5-10.1); CREATININE SERUM 2.22 mg/dL (0.55-1.02); GFR 22.24; MAGNESIUM 2.2 mg/dL (1.8-2.4); PHOSPHOROUS 2.9 mg/dL (2.5-4.9); POTASSIUM 4.12 mEq/L (3.5-5.1); TOTAL PROTEIN 6.4 gm/dL (6.4-8.2)
[2023-12-11 07:22] LABS: HEMATOCRIT 24.6 % (36.0-45.00); MEAN CELL VOLUME 85.9 fL (80.00-100.00); MEAN CORPUSCULAR HGB CONC 33.6 g/dl (32.0-36.0); PLATELET COUNT 208 K/uL (150-450); RED BLOOD COUNT 2.87 M/uL (4.00-6.00); RED CELL DISTRIBUTION WIDTH 17.9 % (11.5-14.5)
[2023-12-11 07:50] LABS: MEAN CORPUSCULAR HEMOGLOBIN 28.9 pg (27.00-32.0)
[2023-12-11 07:51] LABS: HEMOGLOBIN 8.3 g/dL (12.0-15.00)
[2023-12-11 15:34] LABS: URINE APPEARANCE Cloudy; URINE BILIRRUBIN Negative (NEGATIVE); URINE BLOOD Moderate; URINE COLOR Yellow; URINE GLUCOSE Negative (NEGATIVE); URINE LEUKOCYTE Large; URINE NITRATE Negative; URINE PROTEIN 30 (NEGATIVE); URINE UROBILINOGEN 0.2 E.U./dl
[2023-12-11 15:36] LABS: URINE BACTERIA 1334.2 uL (0.0-1933); URINE EPITHELIAL CELLS 5.4 uL (0.0-38.8); URINE RBC 94.8 uL (0.0-20.8)
[2023-12-11 18:05] LABS: PH,URINE 7.5 (5.0-8.0); URINE APPEARANCE Cloudy; URINE BILIRRUBIN Negative (NEGATIVE); URINE BLOOD Small; URINE COLOR Yellow; URINE LEUKOCYTE Large; URINE NITRATE Negative; URINE PROTEIN 30 (NEGATIVE); URINE UROBILINOGEN 0.2 E.U./dl
[2023-12-11 18:09] LABS: URINE BACTERIA 1844.5 uL (0.0-1933); URINE EPITHELIAL CELLS 6.6 uL (0.0-38.8); URINE RBC 97.8 uL (0.0-20.8)
[2023-12-11 18:27] LABS: URINE GLUCOSE 250 MG/DL (NEGATIVE)
[2023-12-12 14:58] LABS: FERRITIN 948.6 NG/ML (8-252)
[2023-12-13 15:15] LABS: HEMATOCRIT 26.5 % (36.0-45.00); MEAN CELL VOLUME 85.6 fL (80.00-100.00); PLATELET COUNT 230 K/uL (150-450); RED CELL DISTRIBUTION WIDTH 18.3 % (11.5-14.5)
[2023-12-13 15:16] LABS: HEMOGLOBIN 8.7 g/dL (12.0-15.00)
[2023-12-13 15:43] LABS: ALBUMIN 2.8 gm/dL (3.4-5.0); BILIRUBIN TOTAL 0.55 mg/dL (0.3-1.2); CALCIUM 8.9 mg/dL (8.5-10.1); CREATININE SERUM 2.2 mg/dL (0.55-1.02); GFR 22.47; GLOBULINA 4.4 G/DL (2.4-3.5); MAGNESIUM 2.1 mg/dL (1.8-2.4); POTASSIUM 3.71 mEq/L (3.5-5.1); TOTAL PROTEIN 7.2 gm/dL (6.4-8.2)
[2023-12-14] MEDS ORDERED: MORPHINE SULFATE 2 MG/ML CARTRIDGE IV PRN (04:15)
[2023-12-16 08:22] LABS: MEAN CELL VOLUME 87.3 fL (80.00-100.00); MEAN CORPUSCULAR HGB CONC 34.3 g/dl (32.0-36.0); PLATELET COUNT 223 K/uL (150-450); RED BLOOD COUNT 2.86 M/uL (4.00-6.00); RED CELL DISTRIBUTION WIDTH 18.1 % (11.5-14.5)
[2023-12-16 08:46] LABS: HEMOGLOBIN 8.6 g/dL (12.0-15.00)
[2023-12-16 08:51] LABS: ALBUMIN 2.8 gm/dL (3.4-5.0); BILIRUBIN TOTAL 0.46 mg/dL (0.3-1.2); CALCIUM 8.6 mg/dL (8.5-10.1); CREATININE SERUM 1.99 mg/dL (0.55-1.02); GFR 25.23; GLOBULINA 4.1 G/DL (2.4-3.5); MAGNESIUM 2.4 mg/dL (1.8-2.4); POTASSIUM 3.78 mEq/L (3.5-5.1); TOTAL PROTEIN 6.9 gm/dL (6.4-8.2)
[2023-12-18 06:04] LABS: MEAN CELL VOLUME 86.2 fL (80.00-100.00); MEAN CORPUSCULAR HGB CONC 34.1 g/dl (32.0-36.0); PLATELET COUNT 213 K/uL (150-450); RED CELL DISTRIBUTION WIDTH 18.6 % (11.5-14.5)
[2023-12-18 06:37] LABS: MEAN CORPUSCULAR HEMOGLOBIN 29.3 pg (27.00-32.0)
[2023-12-18 06:38] LABS: ALBUMIN 2.7 gm/dL (3.4-5.0); BILIRUBIN TOTAL 0.55 mg/dL (0.3-1.2); CALCIUM 8.9 mg/dL (8.5-10.1); CREATININE SERUM 1.85 mg/dL (0.55-1.02); GFR 27.44; GLOBULINA 3.8 G/DL (2.4-3.5); HEMOGLOBIN 8.5 g/dL (12.0-15.00); MAGNESIUM 1.9 mg/dL (1.8-2.4); TOTAL PROTEIN 6.5 gm/dL (6.4-8.2)
[2023-12-18 06:39] LABS: POTASSIUM 4.44 mEq/L (3.5-5.1)
[2023-12-19 11:18] LABS: HEMATOCRIT 26.4 % (36.0-45.00); MEAN CORPUSCULAR HGB CONC 33.2 g/dl (32.0-36.0); PLATELET COUNT 204 K/uL (150-450); RED BLOOD COUNT 3.03 M/uL (4.00-6.00); RED CELL DISTRIBUTION WIDTH 18.7 % (11.5-14.5)
[2023-12-19 11:20] LABS: HEMOGLOBIN 8.8 g/dL (12.0-15.00)
[2023-12-19] MEDS ORDERED: IOVERSOL 320 MG/ML - 50 ML VIAL IV ONE ×2 (20:08→20:45)
[2023-12-19] MEDS ORDERED: LIDOCAINE HCL 1% 200MG/20ML VIAL IJ ONE ×2 (20:08→20:45)
[2023-12-20] MEDS ORDERED: HYDROCORTISONE SODIUM SUCC/PF 50 MG/ML ML IV SCH (14:55)
[2023-12-20] MEDS ORDERED: ONDANSETRON HCL 2 MG/ML VIAL IV PRN (17:30)
[2023-12-20 19:45] LABS: URINE APPEARANCE Turbid; URINE BILIRRUBIN Negative (NEGATIVE); URINE BLOOD Small; URINE COLOR Yellow; URINE LEUKOCYTE Large; URINE NITRATE Negative; URINE UROBILINOGEN 0.2 E.U./dl
[2023-12-20 19:48] LABS: URINE BACTERIA 1505.6 uL (0.0-1933); URINE EPITHELIAL CELLS 16.2 uL (0.0-38.8); URINE RBC 25.8 uL (0.0-20.8)
[2023-12-20 19:49] LABS: URINE GLUCOSE 100 MG/DL (NEGATIVE); URINE PROTEIN 100 (NEGATIVE); URINE WBC > 5548.3 uL (0.0-23.2)
[2023-12-21] MEDS ORDERED: MORPHINE SULFATE 2 MG/ML CARTRIDGE IV PRN (03:00)
[2023-12-21 09:29] LABS: HEMATOCRIT 26.9 % (36.0-45.00); MEAN CORPUSCULAR HGB CONC 33.1 g/dl (32.0-36.0); PLATELET COUNT 178 K/uL (150-450); RED BLOOD COUNT 3.13 M/uL (4.00-6.00); RED CELL DISTRIBUTION WIDTH 18.5 % (11.5-14.5)
[2023-12-21 09:36] LABS: HEMOGLOBIN 8.9 g/dL (12.0-15.00); MEAN CORPUSCULAR HEMOGLOBIN 28.4 pg (27.00-32.0)
[2023-12-21 09:57] LABS: ALBUMIN 2.9 gm/dL (3.4-5.0); BILIRUBIN TOTAL 0.9 mg/dL (0.3-1.2); CALCIUM 8.9 mg/dL (8.5-10.1); CREATININE SERUM 2.05 mg/dL (0.55-1.02); GFR 24.38; GLOBULINA 4.2 G/DL (2.4-3.5); POTASSIUM 4.14 mEq/L (3.5-5.1); TOTAL PROTEIN 7.1 gm/dL (6.4-8.2)
[2023-12-21 10:00] LABS: C-REACTIVE PROTEIN 6.41 MG/DL (0.00-0.29)
[2023-12-21 10:19] LABS: ERYTHROCYTE SEDIMENTATION RATE 52 mm/hr
[2023-12-22] MEDS ORDERED: ACETAMINOPHEN 500 MG GEL..CAP PO PRN (07:45)
[2023-12-22] MEDS ORDERED: CEFTRIAXONE SODIUM 2,000 MG VIAL IV SCH (17:00)
[2023-12-22] MEDS ORDERED: ONDANSETRON HCL 2 MG/ML VIAL IV PRN (22:17)
[2023-12-23 07:20] LABS: HEMATOCRIT 24.9 % (36.0-45.00); MEAN CELL VOLUME 86.9 fL (80.00-100.00); MEAN CORPUSCULAR HGB CONC 33.9 g/dl (32.0-36.0); PLATELET COUNT 149 K/uL (150-450); RED BLOOD COUNT 2.87 M/uL (4.00-6.00); RED CELL DISTRIBUTION WIDTH 17.5 % (11.5-14.5)
[2023-12-23 07:31] LABS: MEAN CORPUSCULAR HEMOGLOBIN 29.6 pg (27.00-32.0)
[2023-12-23 07:32] LABS: HEMOGLOBIN 8.5 g/dL (12.0-15.00)
[2023-12-23 08:07] LABS: ALBUMIN 2.7 gm/dL (3.4-5.0); BILIRUBIN TOTAL 0.82 mg/dL (0.3-1.2); CALCIUM 8.7 mg/dL (8.5-10.1); CREATININE SERUM 2.17 mg/dL (0.55-1.02); GFR 22.83; GLOBULINA 3.8 G/DL (2.4-3.5); POTASSIUM 3.66 mEq/L (3.5-5.1); TOTAL PROTEIN 6.5 gm/dL (6.4-8.2)
[2023-12-23 08:11] LABS: C-REACTIVE PROTEIN 11.3 MG/DL (0.00-0.29)
[2023-12-23] MEDS ORDERED: DOCUSATE SODIUM 100MG CAP PO SCH (17:00)
[2023-12-24] MEDS ORDERED: IRON FUM,PS/FOLIC/BCOMP,C NO.9 1 CAP CAPSULE PO SCH (09:00)
[2023-12-24] MEDS ORDERED: DIPHENHYDRAMINE HCL 50 MG/ML VIAL 1ML ONE (22:33)
[2023-12-24] MEDS ORDERED: DIPHENHYDRAMINE HCL 50 MG/ML VIAL 1ML IV ONE (22:45)
[2023-12-25] MEDS ORDERED: LINEZOLID 600 MG TABLET PO SCH (09:00)
[2023-12-27 05:22] LABS: HEMATOCRIT 24.4 % (36.0-45.00); MEAN CELL VOLUME 85.2 fL (80.00-100.00); MEAN CORPUSCULAR HGB CONC 34.2 g/dl (32.0-36.0); PLATELET COUNT 159 K/uL (150-450); RED BLOOD COUNT 2.86 M/uL (4.00-6.00); RED CELL DISTRIBUTION WIDTH 16.9 % (11.5-14.5)
[2023-12-27 05:24] LABS: HEMOGLOBIN 8.3 g/dL (12.0-15.00)
[2023-12-27 05:38] LABS: ALBUMIN 2.7 gm/dL (3.4-5.0); BILIRUBIN TOTAL 0.67 mg/dL (0.3-1.2); CALCIUM 8.3 mg/dL (8.5-10.1); CREATININE SERUM 1.88 mg/dL (0.55-1.02); GFR 26.94; GLOBULINA 3.6 G/DL (2.4-3.5); MAGNESIUM 1.6 mg/dL (1.8-2.4); POTASSIUM 3.41 mEq/L (3.5-5.1); TOTAL PROTEIN 6.3 gm/dL (6.4-8.2)
[2023-12-27 06:31] LABS: C-REACTIVE PROTEIN 4.31 MG/DL (0.00-0.29)
[2023-12-27 06:32] LABS: PHOSPHOROUS 1.7 mg/dL (2.5-4.9)
[2023-12-27] MEDS ORDERED: POTASSIUM PHOS,M-BASIC-D-BASIC 3 MM/ML VIAL IV SCH (09:00)
[2023-12-27] MEDS ORDERED: FLUCONAZOLE IN NACL,ISO-OSM 200 MG/100 ML PIGGYBAG IV ONE (15:45)
[2023-12-28 05:14] LABS: CREATININE SERUM 1.87 mg/dL (0.55-1.02); GFR 27.11; MAGNESIUM 1.9 mg/dL (1.8-2.4); PHOSPHOROUS 2.5 mg/dL (2.5-4.9); POTASSIUM 3.41 mEq/L (3.5-5.1)
[2023-12-28 13:53] LABS: PH,URINE 7.5 (5.0-8.0); URINE APPEARANCE Cloudy; URINE BILIRRUBIN Negative (NEGATIVE); URINE BLOOD Moderate; URINE COLOR Yellow; URINE LEUKOCYTE Large; URINE NITRATE Negative; URINE UROBILINOGEN 0.2 E.U./dl
[2023-12-28 14:03] LABS: URINE BACTERIA 1765.1 uL (0.0-1933); URINE EPITHELIAL CELLS 71.5 uL (0.0-38.8); URINE RBC 75.5 uL (0.0-20.8)
[2023-12-28 14:30] LABS: URINE GLUCOSE 250 MG/DL (NEGATIVE); URINE PROTEIN 100 (NEGATIVE)
[2023-12-28] MEDS ORDERED: FLUCONAZOLE IN NACL,ISO-OSM 2 MG/ML ML IV SCH (17:00)
[2023-12-28] MEDS ORDERED: FLUCONAZOLE IN NACL,ISO-OSM 100 MG/50 ML PIGGYBAG IV SCH (17:00)
[2023-12-28] MEDS ORDERED: CEFTAZIDIME/AVIBACTAM 0.94GM/100ML NSS PB IV SCH (17:00)
[2023-12-29 05:20] LABS: INR 0.98; PARTIAL THROMBOPLASTIN TIME 32.4 SECONDS (22.0-34.0); PROTHROMBIN TIME 10.3 SECONDS (9.0-11.5)
[2023-12-30 07:56] LABS: CALCIUM 8.2 mg/dL (8.5-10.1); CREATININE SERUM 1.7 mg/dL (0.55-1.02); GFR 30.26; POTASSIUM 3.88 mEq/L (3.5-5.1)
[2023-12-30 08:09] LABS: MEAN CELL VOLUME 86.3 fL (80.00-100.00); MEAN CORPUSCULAR HGB CONC 33.6 g/dl (32.0-36.0); PLATELET COUNT 169 K/uL (150-450); RED BLOOD COUNT 2.73 M/uL (4.00-6.00); RED CELL DISTRIBUTION WIDTH 17.3 % (11.5-14.5)
[2023-12-30 08:41] LABS: HEMATOCRIT 23.5 % (36.0-45.00); HEMOGLOBIN 7.9 g/dL (12.0-15.00); MEAN CORPUSCULAR HEMOGLOBIN 28.9 pg (27.00-32.0)
[2023-12-30] MEDS ORDERED: EPOETIN ALFA-EPBX 10,000 UNIT/ML 2ML VIAL SUBCUTANEO SCH (13:00)
[2024-01-01] MEDS ORDERED: GENTAMICIN SULFATE 40 MG/ML VIAL IV ONE (07:00)
[2024-01-01] MEDS ORDERED: CIPROFLOXACIN IN 5 % DEXTROSE 400 MG/200 ML PIGGYBAG IV SCH (09:00)
[2024-01-02 06:50] LABS: HEMATOCRIT 24.5 % (36.0-45.00); HEMOGLOBIN 8.5 g/dL (12.0-15.00); MEAN CELL VOLUME 85.6 fL (80.00-100.00); MEAN CORPUSCULAR HEMOGLOBIN 29.7 pg (27.00-32.0); MEAN CORPUSCULAR HGB CONC 34.6 g/dl (32.0-36.0); PLATELET COUNT 228 K/uL (150-450); RED BLOOD COUNT 2.86 M/uL (4.00-6.00); RED CELL DISTRIBUTION WIDTH 16.8 % (11.5-14.5)
[2024-01-02 07:08] LABS: ALBUMIN 2.8 gm/dL (3.4-5.0); BILIRUBIN TOTAL 0.49 mg/dL (0.3-1.2); CALCIUM 8.6 mg/dL (8.5-10.1); CREATININE SERUM 1.86 mg/dL (0.55-1.02); GFR 27.27; GLOBULINA 3.5 G/DL (2.4-3.5); MAGNESIUM 1.9 mg/dL (1.8-2.4); PHOSPHOROUS 2.1 mg/dL (2.5-4.9); POTASSIUM 3.58 mEq/L (3.5-5.1); TOTAL PROTEIN 6.3 gm/dL (6.4-8.2)
[2024-01-02 07:12] LABS: C-REACTIVE PROTEIN 0.6 MG/DL (0.00-0.29)
[2024-01-03] MEDS ORDERED: GENTAMICIN SULFATE 40 MG/ML VIAL IV SCH (21:00)
[2024-01-05 04:54] LABS: HEMATOCRIT 26.9 % (36.0-45.00); HEMOGLOBIN 9.2 g/dL (12.0-15.00); MEAN CELL VOLUME 87.1 fL (80.00-100.00); MEAN CORPUSCULAR HEMOGLOBIN 29.8 pg (27.00-32.0); MEAN CORPUSCULAR HGB CONC 34.2 g/dl (32.0-36.0); PLATELET COUNT 253 K/uL (150-450); RED BLOOD COUNT 3.08 M/uL (4.00-6.00); RED CELL DISTRIBUTION WIDTH 17.9 % (11.5-14.5)
[2024-01-05 05:17] LABS: ALBUMIN 2.9 gm/dL (3.4-5.0); BILIRUBIN TOTAL 0.45 mg/dL (0.3-1.2); CALCIUM 8.8 mg/dL (8.5-10.1); CREATININE SERUM 2.01 mg/dL (0.55-1.02); GFR 24.94; GLOBULINA 3.7 G/DL (2.4-3.5); MAGNESIUM 2.1 mg/dL (1.8-2.4); PHOSPHOROUS 2.6 mg/dL (2.5-4.9); POTASSIUM 3.94 mEq/L (3.5-5.1); TOTAL PROTEIN 6.6 gm/dL (6.4-8.2)
[2024-01-05 05:29] LABS: C-REACTIVE PROTEIN 0.38 MG/DL (0.00-0.29)
[2024-01-06 07:54] LABS: ALBUMIN 3.2 gm/dL (3.4-5.0); BILIRUBIN TOTAL 0.56 mg/dL (0.3-1.2); CALCIUM 8.7 mg/dL (8.5-10.1); CREATININE SERUM 2.32 mg/dL (0.55-1.02); GFR 21.14; GLOBULINA 4.3 G/DL (2.4-3.5); POTASSIUM 3.97 mEq/L (3.5-5.1); TOTAL PROTEIN 7.5 gm/dL (6.4-8.2)
[2024-01-07] MEDS ORDERED: CIPROFLOXACIN IN 5 % DEXTROSE 400 MG/200 ML PIGGYBAG IV SCH (09:00)
[2024-01-08 05:27] LABS: HEMATOCRIT 29.6 % (36.0-45.00); HEMOGLOBIN 10.1 g/dL (12.0-15.00); MEAN CORPUSCULAR HEMOGLOBIN 30.6 pg (27.00-32.0); PLATELET COUNT 218 K/uL (150-450); RED BLOOD COUNT 3.29 M/uL (4.00-6.00)
[2024-01-08 11:53] LABS: ALBUMIN 3.1 gm/dL (3.4-5.0); BILIRUBIN TOTAL 0.42 mg/dL (0.3-1.2); CALCIUM 8.7 mg/dL (8.5-10.1); CREATININE SERUM 2.54 mg/dL (0.55-1.02); GFR 19.04; POTASSIUM 3.93 mEq/L (3.5-5.1); TOTAL PROTEIN 7.1 gm/dL (6.4-8.2)
[2024-01-09] MEDS ORDERED: 0.9 % SODIUM CHLORIDE 1,000 ML IV SCH (08:30)
[2024-01-10 05:38] LABS: ALBUMIN 3.1 gm/dL (3.4-5.0); BILIRUBIN TOTAL 0.51 mg/dL (0.3-1.2); CALCIUM 8.6 mg/dL (8.5-10.1); CREATININE SERUM 2.48 mg/dL (0.55-1.02); GFR 19.57; GLOBULINA 3.8 G/DL (2.4-3.5); POTASSIUM 4.44 mEq/L (3.5-5.1); TOTAL PROTEIN 6.9 gm/dL (6.4-8.2)
[2024-01-10] MEDS ORDERED: DIPHENHYDRAMINE HCL 50 MG/ML VIAL 1ML IV ONE (09:15)
[2024-01-13 08:39] LABS: HEMATOCRIT 33.6 % (36.0-45.00); HEMOGLOBIN 11.3 g/dL (12.0-15.00); MEAN CELL VOLUME 91.1 fL (80.00-100.00); MEAN CORPUSCULAR HEMOGLOBIN 30.6 pg (27.00-32.0); MEAN CORPUSCULAR HGB CONC 33.6 g/dl (32.0-36.0); PLATELET COUNT 202 K/uL (150-450); RED BLOOD COUNT 3.69 M/uL (4.00-6.00); RED CELL DISTRIBUTION WIDTH 21.8 % (11.5-14.5)
[2024-01-13 09:45] LABS: ALBUMIN 3.4 gm/dL (3.4-5.0); BILIRUBIN TOTAL 0.69 mg/dL (0.3-1.2); C-REACTIVE PROTEIN 0.61 MG/DL (0.00-0.29); CALCIUM 8.8 mg/dL (8.5-10.1); CREATININE SERUM 2.21 mg/dL (0.55-1.02); GFR 22.35; GLOBULINA 4.2 G/DL (2.4-3.5); POTASSIUM 4.46 mEq/L (3.5-5.1); TOTAL PROTEIN 7.6 gm/dL (6.4-8.2)
[2024-01-15 05:32] LABS: HEMATOCRIT 29.9 % (36.0-45.00); HEMOGLOBIN 10.1 g/dL (12.0-15.00); MEAN CELL VOLUME 91.8 fL (80.00-100.00); MEAN CORPUSCULAR HGB CONC 33.7 g/dl (32.0-36.0); PLATELET COUNT 161 K/uL (150-450); RED BLOOD COUNT 3.26 M/uL (4.00-6.00); RED CELL DISTRIBUTION WIDTH 22.4 % (11.5-14.5)
[2024-01-15 05:55] LABS: ALBUMIN 2.9 gm/dL (3.4-5.0); BILIRUBIN TOTAL 0.74 mg/dL (0.3-1.2); CALCIUM 8.4 mg/dL (8.5-10.1); CREATININE SERUM 2.39 mg/dL (0.55-1.02); GFR 20.42; GLOBULINA 3.8 G/DL (2.4-3.5); MAGNESIUM 2.2 mg/dL (1.8-2.4); PHOSPHOROUS 3.6 mg/dL (2.5-4.9); POTASSIUM 4.07 mEq/L (3.5-5.1); TOTAL PROTEIN 6.7 gm/dL (6.4-8.2)
[2024-01-17 06:52] LABS: CALCIUM 8.7 mg/dL (8.5-10.1); CREATININE SERUM 2.22 mg/dL (0.55-1.02); GFR 22.24; MAGNESIUM 2.1 mg/dL (1.8-2.4); POTASSIUM 4.3 mEq/L (3.5-5.1)
[2024-01-17] MEDS ORDERED: INTESTINEX680 M1 PO (08:50)
== END 2024-01-17 12:00 | disposition home or self-care (01) | DRG 698 ==
LOC: ER 12:38 → MEDI 20:01
PROVIDERS: Emergency Medicine; Internal Medicine; Internal Medicine Infectious Disease; Internal Medicine Nephrology; Urology; ADMIT Internal Medicine; ATTEND Internal Medicine
PROC: BW21ZZZ Computerized Tomography (CT Scan) of Abdomen and Pelvis (ICD-10-PCS; 2023-11-23)
PROC: 0W9G30Z Drainage of Peritoneal Cavity with Drainage Device, Percutaneous Approach (ICD-10-PCS; principal; 2023-11-24)
PROC: 02HV33Z Insertion of Infusion Device into Superior Vena Cava, Percutaneous Approach (ICD-10-PCS; 2023-11-25)
PROC: BT04ZZZ Plain Radiography of Kidneys, Ureters and Bladder (ICD-10-PCS; 2023-11-28)
PROC: BW21YZZ Computerized Tomography (CT Scan) of Abdomen and Pelvis using Other Contrast (ICD-10-PCS; 2023-12-14)
PROC: 0T25X0Z Change Drainage Device in Kidney, External Approach (ICD-10-PCS; 2023-12-19)
PROC: BW21ZZZ Computerized Tomography (CT Scan) of Abdomen and Pelvis (ICD-10-PCS; 2023-12-27)
PROC: 0T7D8DZ Dilation of Urethra with Intraluminal Device, Via Natural or Artificial Opening Endoscopic (ICD-10-PCS; 2023-12-29)
PROC: 0TPD8DZ Removal of Intraluminal Device from Urethra, Via Natural or Artificial Opening Endoscopic (ICD-10-PCS; 2023-12-29)
PROC: BW21ZZZ Computerized Tomography (CT Scan) of Abdomen and Pelvis (ICD-10-PCS; 2024-01-15)
DX: T83.092A Other mechanical complication of nephrostomy catheter, initial encounter (principal); K65.1 Peritoneal abscess; N39.0 Urinary tract infection, site not specified; N17.9 Acute kidney failure, unspecified; K63.2 Fistula of intestine; Z16.12 Extended spectrum beta lactamase (ESBL) resistance; N13.30 Unspecified hydronephrosis; N13.721 Vesicoureteral-reflux with reflux nephropathy without hydroureter, unilateral; D63.1 Anemia in chronic kidney disease; B95.4 Other streptococcus as the cause of diseases classified elsewhere; Z93.6 Other artificial openings of urinary tract status; B96.20 Unspecified Escherichia coli [E. coli] as the cause of diseases classified elsewhere; B96.89 Other specified bacterial agents as the cause of diseases classified elsewhere; N18.30 Chronic kidney disease, stage 3 unspecified

== ENCOUNTER 2024-04-27 19:34 | Inpatient (IN) | payer OTHER ==
[~2024-04-27] VITALS: Ht 167.6 cm; Wt 83.9 kg
[2024-04-27] MEDS ORDERED: FAMOTIDINE20 MG PO (21:04)
[2024-04-27] MEDS ORDERED: PROTONIX20 MG PO (21:04)
--- NOTE | 2024-04-27 21:11 | NUR ---
PACIENTE ALERTA Y ORIENTADA X3, REFIERE COMENZAR CON DOLOR ABDOMINAL ACOMPANADO POR VOMITOS Y DIARREAS. REFIERE 3 EPISODIOS DE VOMITOS Y 4 EPISODIOS DE DIARREAS. SE DINA S/V Y SE UBICA.
[2024-04-27] MEDS ORDERED: ONDANSETRON 4 MG TAB.RAPDIS PO ONE ×2 (22:15→23:01)
[2024-04-27] MEDS ORDERED: FAMOTIDINE/PF 20 MG/2 ML VIAL IV PUSH ONE (22:15)
[2024-04-27] MEDS ORDERED: FAMOTIDINE/PF 20 MG/2 ML VIAL ONE (23:01)
[2024-04-27] MEDS ORDERED: BARIUM SULFATE 450 ML ORAL.SUSP PO ONE (23:03)
[2024-04-27 23:35] LABS: HEMATOCRIT 31.2 % (36.0-45.00); HEMOGLOBIN 10.5 g/dL (12.0-15.00); MEAN CELL VOLUME 82.7 fL (80.00-100.00); MEAN CORPUSCULAR HEMOGLOBIN 27.8 pg (27.00-32.0); MEAN CORPUSCULAR HGB CONC 33.7 g/dl (32.0-36.0); PLATELET COUNT 346 K/uL (150-450); RED BLOOD COUNT 3.78 M/uL (4.00-6.00); RED CELL DISTRIBUTION WIDTH 15.5 % (11.5-14.5)
[2024-04-27 23:35] LABS: URINE APPEARANCE Turbid; URINE BILIRRUBIN Negative (NEGATIVE); URINE BLOOD Moderate; URINE COLOR Yellow; URINE KETONE Trace (NEGATIVE); URINE LEUKOCYTE Large; URINE NITRATE Negative
[2024-04-27 23:38] LABS: URINE BACTERIA 1147.7 uL (0.0-1933); URINE EPITHELIAL CELLS 25.3 uL (0.0-38.8); URINE RBC 10.2 uL (0.0-20.8)
[2024-04-27] MEDS ORDERED: PROMETHAZINE HCL 25 MG/ML AMPUL ONE (23:44)
[2024-04-27] MEDS ORDERED: PROMETHAZINE HCL 25 MG/ML AMPUL IM ONE (23:45)
[2024-04-28 00:03] LABS: ALBUMIN 3.2 gm/dL (3.4-5.0); BILIRUBIN TOTAL 0.93 mg/dL (0.3-1.2); CALCIUM 9.2 mg/dL (8.5-10.1); GFR 10.48; GLOBULINA 5.3 G/DL (2.4-3.5); POTASSIUM 3.99 mEq/L (3.5-5.1); TOTAL PROTEIN 8.5 gm/dL (6.4-8.2)
[2024-04-28 00:15] LABS: CREATININE SERUM 4.26 mg/dL (0.55-1.02)
[2024-04-28] MEDS ORDERED: BARIUM SULFATE 450 ML ORAL.SUSP PO ONE (00:15)
[2024-04-28 00:18] LABS: URINE CAST 0.61 uL (0.0-1.40); URINE GLUCOSE 100 MG/DL (NEGATIVE); URINE PROTEIN 300 (NEGATIVE)
[2024-04-28] MEDS ORDERED: CIPROFLOXACIN IN 5 % DEXTROSE 400 MG/200 ML PIGGYBAG IV STA (01:20)
[2024-04-28] MEDS ORDERED: CIPROFLOXACIN IN 5 % DEXTROSE 400 MG/200 ML PIGGYBAG IV ONE (01:30)
--- NOTE | 2024-04-28 03:28 | NUR ---
PTE ALERTA Y ORIENTADA X3, SE EDUCA SOBRE TX MEDICO Y REFIERE ACEPTAR. SE COLECTAN MUESTRAS DE LAB Y SE CANALIZA PTE BAJO MEDIDAS ASEPTICAS. SE ADMINISTRAN MEDS DEBRA ORDEN MEDICA Y NO PRESENTA REACCION. SE HACE ENTREGA DE ENVASE PARA U/A, U/C Y DE CONTRASTE PARA CT PO.
[2024-04-28] MEDS ORDERED: ONDANSETRON HCL 2 MG/ML VIAL IV ONE (04:15)
--- NOTE | 2024-04-28 07:53 | NUR ---
PTE ALERTA Y ORIENTADA X3 ACOSTADA EN CAMA SE LE DINA S/V. PTE CON BARRANDAS ELEVADAS Y CERCA DEL COUNTER DE ENFERMERIA DE QUE NECESITE ALGO. PENDIENTE A CONSULTA
[2024-04-28] MEDS ORDERED: 0.9 % SODIUM CHLORIDE 1,000 ML IV SCH (11:45)
[2024-04-28] MEDS ORDERED: MEROPENEM 1,000 MG VIAL IV SCH (11:51)
[2024-04-28] MEDS ORDERED: ONDANSETRON HCL 4 MG in 0.9 % SODIUM CHLORIDE 50 ML IV PRN (12:00)
[2024-04-28] MEDS ORDERED: MORPHINE SULFATE 2 MG/ML CARTRIDGE IV PRN (12:00)
[2024-04-28] MEDS ORDERED: MEROPENEM 500 MG/VIAL VIAL IV SCH (21:00)
[2024-04-29 06:46] LABS: URINE APPEARANCE Turbid; URINE BILIRRUBIN Negative (NEGATIVE); URINE BLOOD Moderate; URINE COLOR Yellow; URINE KETONE Negative (NEGATIVE); URINE LEUKOCYTE Large; URINE NITRATE Negative; URINE UROBILINOGEN 0.2 E.U./dl
[2024-04-29 07:05] LABS: URINE BACTERIA 403.1 uL (0.0-1933); URINE CAST 1.98 uL (0.0-1.40); URINE EPITHELIAL CELLS 5.7 uL (0.0-38.8); URINE RBC 46.5 uL (0.0-20.8); URINE WBC 3257.2 uL (0.0-23.2)
[2024-04-29 07:12] LABS: HEMATOCRIT 29.3 % (36.0-45.00); HEMOGLOBIN 9.8 g/dL (12.0-15.00); MEAN CELL VOLUME 83.5 fL (80.00-100.00); MEAN CORPUSCULAR HGB CONC 33.5 g/dl (32.0-36.0); PLATELET COUNT 283 K/uL (150-450); RED CELL DISTRIBUTION WIDTH 15.1 % (11.5-14.5)
[2024-04-29 07:29] LABS: URINE GLUCOSE 100 MG/DL (NEGATIVE); URINE PROTEIN 100 (NEGATIVE)
[2024-04-29 07:31] LABS: INR 1.1; PARTIAL THROMBOPLASTIN TIME 36.8 SECONDS (22.0-34.0); PROTHROMBIN TIME 11.5 SECONDS (9.0-11.5)
[2024-04-29] MEDS ORDERED: MORPHINE SULFATE 2 MG/ML CARTRIDGE IV PRN (08:15)
[2024-04-29 08:30] LABS: ERYTHROCYTE SEDIMENTATION RATE 76 mm/hr
[2024-04-29] MEDS ORDERED: MORPHINE SULFATE 4 MG/ML CARTRIDGE IV PRN (13:15)
[2024-04-29] MEDS ORDERED: MIDAZOLAM HCL 2 MG/2 ML VIAL IV PUSH ONE (16:45)
[2024-04-29] MEDS ORDERED: fentaNYL CITRATE 50 MCG/ML AMPUL IV PUSH ONE (16:45)
[2024-04-30] MEDS ORDERED: RINGERS SOLUTION,LACTATED 1,000 ML IV SCH (06:15)
[2024-04-30 09:27] LABS: ALBUMIN 2.4 gm/dL (3.4-5.0); BILIRUBIN TOTAL 0.74 mg/dL (0.3-1.2); BILIRUBIN,CONJUGATED 0.39 mg/dL (0.0-0.2); BILIRUBIN,UNCONJUGATED 0.35 mg/dL (0.0-0.6); CALCIUM 8.2 mg/dL (8.5-10.1); CHOL HDL RATIO 3.4 (0-5.0); CREATININE SERUM 3.69 mg/dL (0.55-1.02); GFR 12.37; MAGNESIUM 2.2 mg/dL (1.8-2.4); POTASSIUM 3.61 mEq/L (3.5-5.1); T4 FREE 1.17 NG/ML (0.76-1.46); TOTAL PROTEIN 6.7 gm/dL (6.4-8.2); TSH 0.943 uIU/mL (0.358-3.74)
[2024-04-30 09:30] LABS: C-REACTIVE PROTEIN 16.9 MG/DL (0.00-0.29)
[2024-05-01] MEDS ORDERED: CITRIC ACID/SODIUM CITRATE 30 ML BLIST.PACK PO SCH (09:00)
[2024-05-01] MEDS ORDERED: CITRIC ACID/SODIUM CITRATE 15 ML BLIST.PACK PO SCH (09:00)
[2024-05-01] MEDS ORDERED: CEFTRIAXONE SODIUM 2,000 MG VIAL IV SCH (21:00)
[2024-05-02 08:02] LABS: ALBUMIN 2.3 gm/dL (3.4-5.0); BILIRUBIN TOTAL 0.41 mg/dL (0.3-1.2); CALCIUM 8.3 mg/dL (8.5-10.1); CREATININE SERUM 3.27 mg/dL (0.55-1.02); GFR 14.22; GLOBULINA 4.1 G/DL (2.4-3.5); POTASSIUM 3.92 mEq/L (3.5-5.1); TOTAL PROTEIN 6.4 gm/dL (6.4-8.2)
[2024-05-03 07:04] LABS: HEMATOCRIT 29.3 % (36.0-45.00); HEMOGLOBIN 9.9 g/dL (12.0-15.00); MEAN CORPUSCULAR HEMOGLOBIN 28.2 pg (27.00-32.0); MEAN CORPUSCULAR HGB CONC 33.6 g/dl (32.0-36.0); PLATELET COUNT 259 K/uL (150-450); RED BLOOD COUNT 3.49 M/uL (4.00-6.00); RED CELL DISTRIBUTION WIDTH 14.9 % (11.5-14.5)
[2024-05-03 07:19] LABS: ALBUMIN 2.5 gm/dL (3.4-5.0); BILIRUBIN TOTAL 0.35 mg/dL (0.3-1.2); CALCIUM 8.4 mg/dL (8.5-10.1); CREATININE SERUM 3.05 mg/dL (0.55-1.02); GFR 15.41; GLOBULINA 4.2 G/DL (2.4-3.5); POTASSIUM 3.8 mEq/L (3.5-5.1); TOTAL PROTEIN 6.7 gm/dL (6.4-8.2)
[2024-05-03] MEDS ORDERED: VANCOMYCIN HCL 125 MG/7.5 ML BLIST.PACK PO SCH (20:00)
[2024-05-03] MEDS ORDERED: METRONIDAZOLE/SODIUM CHLORIDE 500 MG/100 ML PIGGYBACK IV SCH (21:00)
[2024-05-04] MEDS ORDERED: ONDANSETRON HCL 2 MG/ML VIAL IV PRN (00:15)
[2024-05-04] MEDS ORDERED: MORPHINE SULFATE 4 MG/ML CARTRIDGE IV PRN (00:15)
[2024-05-04] MEDS ORDERED: METOCLOPRAMIDE HCL 5 MG/ML VIAL IV STA (14:00)
[2024-05-04] MEDS ORDERED: METOCLOPRAMIDE HCL 5 MG/ML VIAL IV PRN (15:45)
[2024-05-05 07:38] LABS: HEMATOCRIT 28.2 % (36.0-45.00); HEMOGLOBIN 9.4 g/dL (12.0-15.00); MEAN CELL VOLUME 84.7 fL (80.00-100.00); MEAN CORPUSCULAR HEMOGLOBIN 28.4 pg (27.00-32.0); MEAN CORPUSCULAR HGB CONC 33.5 g/dl (32.0-36.0); PLATELET COUNT 234 K/uL (150-450); RED BLOOD COUNT 3.33 M/uL (4.00-6.00); RED CELL DISTRIBUTION WIDTH 14.9 % (11.5-14.5)
[2024-05-05 07:48] LABS: ALBUMIN 2.4 gm/dL (3.4-5.0); BILIRUBIN TOTAL 0.32 mg/dL (0.3-1.2); CALCIUM 8.7 mg/dL (8.5-10.1); CREATININE SERUM 3.47 mg/dL (0.55-1.02); GFR 13.28; GLOBULINA 3.8 G/DL (2.4-3.5); MAGNESIUM 1.9 mg/dL (1.8-2.4); PHOSPHOROUS 3.2 mg/dL (2.5-4.9); POTASSIUM 3.74 mEq/L (3.5-5.1); TOTAL PROTEIN 6.2 gm/dL (6.4-8.2)
[2024-05-06 13:06] LABS: hav igm Negative (Negative); hcv Non Reactive (Non Reactive); hep b c Negative (Negative)
[2024-05-06] MEDS ORDERED: CETIRIZINE HCL 5MG/5ML BLIST.PACK PO SCH (17:00)
[2024-05-07] MEDS ORDERED: CETIRIZINE HCL 5 MG/5 ML ML PO SCH (17:00)
[2024-05-07 17:58] LABS: PH,URINE 7.5 (5.0-8.0); URINE BILIRRUBIN Negative (NEGATIVE); URINE BLOOD Small; URINE COLOR Yellow; URINE KETONE Negative (NEGATIVE); URINE LEUKOCYTE Moderate; URINE NITRATE Negative; URINE UROBILINOGEN 0.2 E.U./dl
[2024-05-07 17:59] LABS: URINE BACTERIA 66.7 uL (0.0-1933); URINE EPITHELIAL CELLS 1.8 uL (0.0-38.8); URINE RBC 24.5 uL (0.0-20.8); URINE WBC 851.7 uL (0.0-23.2)
[2024-05-07 18:25] LABS: URINE APPEARANCE SL CLOUDY; URINE CAST 0.15 uL (0.0-1.40); URINE GLUCOSE 500 MG/DL (NEGATIVE); URINE PROTEIN 100 (NEGATIVE)
[2024-05-08 05:07] LABS: HEMATOCRIT 31.1 % (36.0-45.00); HEMOGLOBIN 10.4 g/dL (12.0-15.00); MEAN CORPUSCULAR HEMOGLOBIN 28.1 pg (27.00-32.0); MEAN CORPUSCULAR HGB CONC 33.5 g/dl (32.0-36.0); PLATELET COUNT 249 K/uL (150-450); RED CELL DISTRIBUTION WIDTH 15.3 % (11.5-14.5)
[2024-05-08 05:44] LABS: ALBUMIN 2.6 gm/dL (3.4-5.0); BILIRUBIN TOTAL 0.32 mg/dL (0.3-1.2); CALCIUM 7.9 mg/dL (8.5-10.1); CREATININE SERUM 2.87 mg/dL (0.55-1.02); GFR 16.53; GLOBULINA 4.2 G/DL (2.4-3.5); MAGNESIUM 1.7 mg/dL (1.8-2.4); PHOSPHOROUS 2.2 mg/dL (2.5-4.9); POTASSIUM 3.09 mEq/L (3.5-5.1); TOTAL PROTEIN 6.8 gm/dL (6.4-8.2)
[2024-05-08] MEDS ORDERED: PANTOPRAZOLE SODIUM 40 MG in 0.9 % SODIUM CHLORIDE 8 ML IV PUSH STA (09:19)
[2024-05-08] MEDS ORDERED: PANTOPRAZOLE SODIUM 40 MG TABLET.DR PO SCH (17:00)
[2024-05-09] MEDS ORDERED: POTASSIUM BICARBONATE/CIT AC 25 MEQ TABLET.EFF PO SCH (08:04)
[2024-05-10 06:18] LABS: HEMATOCRIT 30.5 % (36.0-45.00); MEAN CELL VOLUME 83.1 fL (80.00-100.00); MEAN CORPUSCULAR HEMOGLOBIN 27.4 pg (27.00-32.0); PLATELET COUNT 241 K/uL (150-450); RED BLOOD COUNT 3.67 M/uL (4.00-6.00); RED CELL DISTRIBUTION WIDTH 15.4 % (11.5-14.5)
[2024-05-10 07:17] LABS: ALBUMIN 2.5 gm/dL (3.4-5.0); BILIRUBIN TOTAL 0.24 mg/dL (0.3-1.2); CALCIUM 8.6 mg/dL (8.5-10.1); CREATININE SERUM 2.76 mg/dL (0.55-1.02); GFR 17.3; GLOBULINA 4.2 G/DL (2.4-3.5); MAGNESIUM 1.8 mg/dL (1.8-2.4); POTASSIUM 3.69 mEq/L (3.5-5.1); TOTAL PROTEIN 6.7 gm/dL (6.4-8.2)
[2024-05-12 09:46] LABS: URINE APPEARANCE Turbid; URINE BILIRRUBIN Negative (NEGATIVE); URINE BLOOD Moderate; URINE COLOR Yellow; URINE KETONE Negative (NEGATIVE); URINE LEUKOCYTE Large; URINE NITRATE Negative; URINE PROTEIN 30 (NEGATIVE); URINE UROBILINOGEN 0.2 E.U./dl
[2024-05-12 09:47] LABS: URINE BACTERIA 1791.6 uL (0.0-1933); URINE EPITHELIAL CELLS 13.2 uL (0.0-38.8); URINE RBC 209.4 uL (0.0-20.8)
[2024-05-12 09:49] LABS: URINE CAST 0.91 uL (0.0-1.40); URINE GLUCOSE 100 MG/DL (NEGATIVE); URINE WBC > 5548.3 uL (0.0-23.2)
[2024-05-13 07:03] LABS: MEAN CELL VOLUME 84.4 fL (80.00-100.00); MEAN CORPUSCULAR HEMOGLOBIN 28.1 pg (27.00-32.0); MEAN CORPUSCULAR HGB CONC 33.3 g/dl (32.0-36.0); PLATELET COUNT 258 K/uL (150-450); RED BLOOD COUNT 3.91 M/uL (4.00-6.00); RED CELL DISTRIBUTION WIDTH 15.6 % (11.5-14.5)
[2024-05-13 07:09] LABS: ALBUMIN 2.9 gm/dL (3.4-5.0); BILIRUBIN TOTAL 0.31 mg/dL (0.3-1.2); CALCIUM 8.6 mg/dL (8.5-10.1); CREATININE SERUM 2.63 mg/dL (0.55-1.02); GFR 18.29; GLOBULINA 4.1 G/DL (2.4-3.5); MAGNESIUM 1.9 mg/dL (1.8-2.4); POTASSIUM 3.97 mEq/L (3.5-5.1)
[2024-05-15 07:58] LABS: HEMATOCRIT 31.1 % (36.0-45.00); HEMOGLOBIN 10.5 g/dL (12.0-15.00); MEAN CELL VOLUME 84.2 fL (80.00-100.00); MEAN CORPUSCULAR HEMOGLOBIN 28.3 pg (27.00-32.0); MEAN CORPUSCULAR HGB CONC 33.7 g/dl (32.0-36.0); PLATELET COUNT 221 K/uL (150-450); RED BLOOD COUNT 3.69 M/uL (4.00-6.00); RED CELL DISTRIBUTION WIDTH 15.9 % (11.5-14.5)
[2024-05-15 08:08] LABS: INR 1.02; PARTIAL THROMBOPLASTIN TIME 32.3 SECONDS (22.0-34.0); PROTHROMBIN TIME 10.7 SECONDS (9.0-11.5)
[2024-05-15 08:13] LABS: BILIRUBIN TOTAL 0.4 mg/dL (0.3-1.2); CALCIUM 8.8 mg/dL (8.5-10.1); CREATININE SERUM 2.59 mg/dL (0.55-1.02); GFR 18.61; GLOBULINA 3.9 G/DL (2.4-3.5); MAGNESIUM 1.9 mg/dL (1.8-2.4); POTASSIUM 4.11 mEq/L (3.5-5.1); TOTAL PROTEIN 6.9 gm/dL (6.4-8.2)
[2024-05-16 18:13] LABS: PH,URINE 7.5 (5.0-8.0); URINE APPEARANCE Cloudy; URINE BILIRRUBIN Negative (NEGATIVE); URINE BLOOD Moderate; URINE COLOR Yellow; URINE KETONE Negative (NEGATIVE); URINE LEUKOCYTE Large; URINE NITRATE Negative; URINE UROBILINOGEN 0.2 E.U./dl
[2024-05-16 18:16] LABS: URINE EPITHELIAL CELLS 6.4 uL (0.0-38.8); URINE RBC 272.2 uL (0.0-20.8); URINE WBC 2890.9 uL (0.0-23.2)
[2024-05-16 18:17] LABS: URINE CAST 1.06 uL (0.0-1.40); URINE GLUCOSE 100 MG/DL (NEGATIVE); URINE PROTEIN 100 (NEGATIVE)
[2024-05-16] MEDS ORDERED: CEFTRIAXONE SODIUM 2,000 MG VIAL IV SCH (21:00)
[2024-05-17] MEDS ORDERED: ONDANSETRON HCL 2 MG/ML VIAL IV PRN (03:15)
[2024-05-20 06:40] LABS: HEMATOCRIT 29.7 % (36.0-45.00); MEAN CELL VOLUME 84.6 fL (80.00-100.00); MEAN CORPUSCULAR HEMOGLOBIN 28.4 pg (27.00-32.0); MEAN CORPUSCULAR HGB CONC 33.5 g/dl (32.0-36.0); PLATELET COUNT 184 K/uL (150-450); RED BLOOD COUNT 3.52 M/uL (4.00-6.00); RED CELL DISTRIBUTION WIDTH 15.7 % (11.5-14.5)
[2024-05-20 07:08] LABS: ALBUMIN 2.8 gm/dL (3.4-5.0); BILIRUBIN TOTAL 0.58 mg/dL (0.3-1.2); CREATININE SERUM 2.39 mg/dL (0.55-1.02); GFR 20.42; MAGNESIUM 1.8 mg/dL (1.8-2.4); POTASSIUM 3.81 mEq/L (3.5-5.1); TOTAL PROTEIN 6.8 gm/dL (6.4-8.2)
[2024-05-21] MEDS ORDERED: ACETAMINOPHEN 500 MG GEL..CAP PO PRN (10:15)
[2024-05-21] MEDS ORDERED: ALBUTEROL SULFATE 3 ML/2.5 MG AMPUL.NEB IH SCH (14:00)
[2024-05-22] MEDS ORDERED: METOCLOPRAMIDE HCL 5 MG/ML VIAL IV STA (07:41)
[2024-05-24 05:06] LABS: HEMATOCRIT 27.6 % (36.0-45.00); HEMOGLOBIN 9.3 g/dL (12.0-15.00); MEAN CELL VOLUME 83.3 fL (80.00-100.00); MEAN CORPUSCULAR HGB CONC 33.6 g/dl (32.0-36.0); PLATELET COUNT 147 K/uL (150-450); RED BLOOD COUNT 3.31 M/uL (4.00-6.00); RED CELL DISTRIBUTION WIDTH 16.2 % (11.5-14.5)
[2024-05-24 05:36] LABS: ALBUMIN 2.8 gm/dL (3.4-5.0); BILIRUBIN TOTAL 0.37 mg/dL (0.3-1.2); CALCIUM 8.7 mg/dL (8.5-10.1); CREATININE SERUM 2.38 mg/dL (0.55-1.02); GFR 20.52; GLOBULINA 3.5 G/DL (2.4-3.5); MAGNESIUM 1.6 mg/dL (1.8-2.4); PHOSPHOROUS 2.9 mg/dL (2.5-4.9); POTASSIUM 3.08 mEq/L (3.5-5.1); TOTAL PROTEIN 6.3 gm/dL (6.4-8.2)
[2024-05-24] MEDS ORDERED: POTASSIUM CHLORIDE IN WATER 100 ML IV NR (10:15)
[2024-05-24] MEDS ORDERED: SODIUM CHLORIDE 0.45 % 1,000 ML IV SCH (10:15)
[2024-05-24] MEDS ORDERED: MAGNESIUM SULFATE IN WATER 50 ML IV NR (10:15)
[2024-05-24] MEDS ORDERED: POTASSIUM BICARBONATE/CIT AC 25 MEQ TABLET.EFF PO SCH (10:51)
[2024-05-24] MEDS ORDERED: AMLODIPINE BESYLATE 2.5 MG TABLET PO SCH (14:18)
[2024-05-25] MEDS ORDERED: AMLODIPINE BESYLATE 2.5 MG TABLET PO NR (15:05)
[2024-05-26] MEDS ORDERED: AMLODIPINE BESYLATE 5 MG TABLET PO SCH (09:00)
[2024-05-27 06:52] LABS: HEMATOCRIT 32.7 % (36.0-45.00); HEMOGLOBIN 10.8 g/dL (12.0-15.00); MEAN CELL VOLUME 84.7 fL (80.00-100.00); MEAN CORPUSCULAR HEMOGLOBIN 28.1 pg (27.00-32.0); MEAN CORPUSCULAR HGB CONC 33.2 g/dl (32.0-36.0); PLATELET COUNT 174 K/uL (150-450); RED BLOOD COUNT 3.86 M/uL (4.00-6.00); RED CELL DISTRIBUTION WIDTH 16.3 % (11.5-14.5)
[2024-05-27 07:27] LABS: ALBUMIN 3.1 gm/dL (3.4-5.0); BILIRUBIN TOTAL 0.48 mg/dL (0.3-1.2); CALCIUM 8.9 mg/dL (8.5-10.1); CREATININE SERUM 2.33 mg/dL (0.55-1.02); GFR 21.03; GLOBULINA 3.8 G/DL (2.4-3.5); PHOSPHOROUS 3.3 mg/dL (2.5-4.9); POTASSIUM 4.28 mEq/L (3.5-5.1); TOTAL PROTEIN 6.9 gm/dL (6.4-8.2)
[2024-05-27] MEDS ORDERED: AMLODIPINE BESYLATE 2.5 MG TABLET PO SCH (09:00)
[2024-05-27] MEDS ORDERED: NORVASC2.5 M1 PO (16:33)
[2024-05-27] MEDS ORDERED: INTEGRA PLUS C1 EACH PO (16:34)
[2024-05-27] MEDS ORDERED: VITAMIN B-121000 MC2 SL (16:34)
[2024-05-27] MEDS ORDERED: PRE PROTEIN1 EACH PO (16:35)
== END 2024-05-29 08:17 | disposition home or self-care (01) | DRG 659 ==
LOC: ER 19:35 → SEC-K 04-28 12:42 → SURG 04-28 12:42 → SURH 04-28 12:42 → SURG 04-29 15:02
PROVIDERS: Emergency Medicine; Internal Medicine; Internal Medicine Infectious Disease; Internal Medicine Nephrology; ADMIT Internal Medicine; ATTEND Internal Medicine
PROC: 02HV33Z Insertion of Infusion Device into Superior Vena Cava, Percutaneous Approach (ICD-10-PCS; 2024-04-28)
PROC: 0W9J30Z Drainage of Pelvic Cavity with Drainage Device, Percutaneous Approach (ICD-10-PCS; 2024-04-30)
PROC: 0T778DZ Dilation of Left Ureter with Intraluminal Device, Via Natural or Artificial Opening Endoscopic (ICD-10-PCS; principal; 2024-05-16)
PROC: 0TP98DZ Removal of Intraluminal Device from Ureter, Via Natural or Artificial Opening Endoscopic (ICD-10-PCS; 2024-05-16)
DX: N17.9 Acute kidney failure, unspecified (principal); A41.9 Sepsis, unspecified organism; K65.1 Peritoneal abscess; N39.0 Urinary tract infection, site not specified; E87.0 Hyperosmolality and hypernatremia; T83.123A Displacement of other urinary stents, initial encounter; E87.6 Hypokalemia; N35.92 Unspecified urethral stricture, female; N13.30 Unspecified hydronephrosis; B96.20 Unspecified Escherichia coli [E. coli] as the cause of diseases classified elsewhere; B96.89 Other specified bacterial agents as the cause of diseases classified elsewhere; I12.9 Hypertensive chronic kidney disease with stage 1 through stage 4 chronic kidney disease, or unspecified chronic kidney disease; N18.30 Chronic kidney disease, stage 3 unspecified; D64.9 Anemia, unspecified; N13.721 Vesicoureteral-reflux with reflux nephropathy without hydroureter, unilateral
CPT/HCPCS: 72198; 74181

== ENCOUNTER 2024-06-28 19:36 | Inpatient (IN) | payer OTHER ==
[~2024-06-28] VITALS: Ht 152.4 cm; Wt 78.0 kg
[~2024-06-28 19:36] MED LIST changes: +NORVASC2.5 M1 PO; +PROTONIX20 MG PO; +VITAMIN B-121000 MC2 SL
[2024-06-28] MEDS ORDERED: FAMOTIDINE/PF 20 MG in 0.9 % SODIUM CHLORIDE 8 ML IV PUSH STA (20:35)
[2024-06-28] MEDS ORDERED: ONDANSETRON HCL 2 MG/ML VIAL ONE (20:43)
[2024-06-28] MEDS ORDERED: FAMOTIDINE/PF 20 MG/2 ML VIAL ONE (20:44)
[2024-06-28] MEDS ORDERED: ONDANSETRON HCL 2 MG/ML VIAL IV ONE (20:45)
[2024-06-28] MEDS ORDERED: 0.9 % SODIUM CHLORIDE 1,000 ML IV SCH (20:45)
[2024-06-28 21:35] LABS: HEMATOCRIT 30.4 % (36.0-45.00); HEMOGLOBIN 10.2 g/dL (12.0-15.00); MEAN CORPUSCULAR HEMOGLOBIN 28.1 pg (27.00-32.0); MEAN CORPUSCULAR HGB CONC 33.5 g/dl (32.0-36.0); PLATELET COUNT 321 K/uL (150-450); RED BLOOD COUNT 3.61 M/uL (4.00-6.00); RED CELL DISTRIBUTION WIDTH 17.1 % (11.5-14.5)
[2024-06-28 22:03] LABS: INR 1.13; PROTHROMBIN TIME 12.2 SECONDS (9.0-11.5)
[2024-06-28 22:04] LABS: PARTIAL THROMBOPLASTIN TIME 38.4 SECONDS (22.0-34.0)
[2024-06-28 22:20] LABS: ALBUMIN 3.5 gm/dL (3.4-5.0); BILIRUBIN TOTAL 1.03 mg/dL (0.3-1.2); CALCIUM 9.3 mg/dL (8.5-10.1); GLOBULINA 4.9 G/DL (2.4-3.5); POTASSIUM 3.83 mEq/L (3.5-5.1); TOTAL PROTEIN 8.4 gm/dL (6.4-8.2)
[2024-06-28 22:21] LABS: CREATININE SERUM 5.37 mg/dL (0.55-1.02)
[2024-06-28] MEDS ORDERED: MORPHINE SULFATE 4 MG/ML VIAL IV ONE (23:30)
[2024-06-29] MEDS ORDERED: 0.9 % SODIUM CHLORIDE 1,000 ML IV SCH (01:45)
[2024-06-29] MEDS ORDERED: CEFTRIAXONE SODIUM 1,000 MG VIAL IV SCH (01:56)
[2024-06-29] MEDS ORDERED: MORPHINE SULFATE 4 MG/ML CARTRIDGE IV PRN (02:00)
[2024-06-29 02:02] LABS: URINE APPEARANCE Turbid; URINE BILIRRUBIN Negative (NEGATIVE); URINE BLOOD Moderate; URINE COLOR Yellow; URINE KETONE Trace (NEGATIVE); URINE LEUKOCYTE Large; URINE NITRATE Negative; URINE UROBILINOGEN 0.2 E.U./dl
[2024-06-29 02:05] LABS: URINE BACTERIA 1728.6 uL (0.0-1933); URINE CAST 1.83 uL (0.0-1.40); URINE EPITHELIAL CELLS 27.3 uL (0.0-38.8); URINE RBC 99.5 uL (0.0-20.8); URINE WBC 4454.8 uL (0.0-23.2)
[2024-06-29] MEDS ORDERED: CEFTRIAXONE SODIUM 2,000 MG VIAL ONE (02:10)
[2024-06-29 02:19] LABS: URINE GLUCOSE 250 MG/DL (NEGATIVE); URINE PROTEIN 300 (NEGATIVE); URINE YEAST FEW /hpf
[2024-06-29 02:54] VITALS: BP 100/60
[2024-06-29] MEDS ORDERED: ONDANSETRON HCL 2 MG/ML VIAL IV PRN (03:30)
[2024-06-29 03:33] VITALS: BP 95/59; O2SAT 100
[2024-06-29 07:42] LABS: ALBUMIN 2.9 gm/dL (3.4-5.0); BILIRUBIN TOTAL 0.83 mg/dL (0.3-1.2); CALCIUM 8.5 mg/dL (8.5-10.1); GLOBULINA 4.3 G/DL (2.4-3.5); MAGNESIUM 1.9 mg/dL (1.8-2.4); PHOSPHOROUS 4.7 mg/dL (2.5-4.9); POTASSIUM 3.78 mEq/L (3.5-5.1); T4 FREE 1.18 NG/ML (0.76-1.46); TOTAL PROTEIN 7.2 gm/dL (6.4-8.2); TSH 3.26 uIU/mL (0.358-3.74)
[2024-06-29 08:37] LABS: HEMATOCRIT 25.3 % (36.0-45.00); MEAN CELL VOLUME 84.6 fL (80.00-100.00); MEAN CORPUSCULAR HGB CONC 34.3 g/dl (32.0-36.0); PLATELET COUNT 267 K/uL (150-450); RED BLOOD COUNT 2.99 M/uL (4.00-6.00); RED CELL DISTRIBUTION WIDTH 17.2 % (11.5-14.5)
[2024-06-29 08:41] LABS: HEMOGLOBIN 8.7 g/dL (12.0-15.00)
[2024-06-29 08:42] LABS: ERYTHROCYTE SEDIMENTATION RATE 53 mm/hr
[2024-06-29 08:46] VITALS: BP 134/66
[2024-06-29] MEDS ORDERED: PANTOPRAZOLE SODIUM 40 MG in 0.9 % SODIUM CHLORIDE 8 ML IV PUSH SCH (09:00)
[2024-06-29 10:07] LABS: C-REACTIVE PROTEIN 12.4 MG/DL (0.00-0.29); CREATININE SERUM 5.18 mg/dL (0.55-1.02); GFR 8.34
[2024-06-29 13:00] LABS: INR 1.1; PARTIAL THROMBOPLASTIN TIME 35.9 SECONDS (22.0-34.0); PROTHROMBIN TIME 11.9 SECONDS (9.0-11.5)
[2024-06-29 17:16] VITALS: BP 117/64
[2024-06-29] MEDS ORDERED: RINGERS SOLUTION,LACTATED 1,000 ML IV SCH (17:45)
[2024-06-29] MEDS ORDERED: MEROPENEM 500 MG/VIAL VIAL IV SCH (21:00)
[2024-06-30 01:05] VITALS: BP 122/59; O2SAT 96
[2024-06-30] MEDS ORDERED: PANTOPRAZOLE SODIUM 40 MG/VIAL VIAL ONE (07:42)
[2024-06-30 08:01] LABS: MEAN CELL VOLUME 85.7 fL (80.00-100.00); MEAN CORPUSCULAR HGB CONC 32.8 g/dl (32.0-36.0); PLATELET COUNT 242 K/uL (150-450); RED BLOOD COUNT 3.03 M/uL (4.00-6.00)
[2024-06-30 08:12] LABS: ALBUMIN 2.6 gm/dL (3.4-5.0); BILIRUBIN TOTAL 0.57 mg/dL (0.3-1.2); CALCIUM 8.2 mg/dL (8.5-10.1); GLOBULINA 4.2 G/DL (2.4-3.5); MAGNESIUM 1.7 mg/dL (1.8-2.4); PHOSPHOROUS 4.3 mg/dL (2.5-4.9); POTASSIUM 4.27 mEq/L (3.5-5.1); TOTAL PROTEIN 6.8 gm/dL (6.4-8.2)
[2024-06-30 08:18] LABS: HEMOGLOBIN 8.5 g/dL (12.0-15.00)
[2024-06-30 08:48] VITALS: BP 90/52
[2024-06-30 09:15] LABS: CREATININE SERUM 5.12 mg/dL (0.55-1.02); GFR 8.45
[2024-06-30] MEDS ORDERED: MAGNESIUM SULFATE IN WATER 50 ML IV NR (10:15)
[2024-06-30] MEDS ORDERED: FERROUS SULFATE 220 MG/5 ML ML PO SCH (12:00)
[2024-06-30 17:17] VITALS: BP 126/60
[2024-07-01 01:36] VITALS: BP 104/52
[2024-07-01 03:35] LABS: PH,URINE 6.5 (5.0-8.0); URINE APPEARANCE Turbid; URINE BILIRRUBIN Negative (NEGATIVE); URINE BLOOD Moderate; URINE COLOR Yellow; URINE KETONE Trace (NEGATIVE); URINE LEUKOCYTE Large; URINE NITRATE Negative; URINE UROBILINOGEN 0.2 E.U./dl
[2024-07-01 03:38] LABS: URINE EPITHELIAL CELLS 8.9 uL (0.0-38.8); URINE RBC 73.4 uL (0.0-20.8)
[2024-07-01 03:42] LABS: URINE BACTERIA > 9821.5 uL (0.0-1933); URINE CAST 1.31 uL (0.0-1.40); URINE GLUCOSE 100 MG/DL (NEGATIVE); URINE PROTEIN 100 (NEGATIVE); URINE WBC > 5548.3 uL (0.0-23.2)
[2024-07-01 06:54] LABS: MEAN CELL VOLUME 85.9 fL (80.00-100.00); PLATELET COUNT 222 K/uL (150-450); RED BLOOD COUNT 2.62 M/uL (4.00-6.00); RED CELL DISTRIBUTION WIDTH 17.2 % (11.5-14.5)
[2024-07-01 07:02] LABS: HEMATOCRIT 22.5 % (36.0-45.00); MEAN CORPUSCULAR HEMOGLOBIN 28.2 pg (27.00-32.0)
[2024-07-01 07:03] LABS: HEMOGLOBIN 7.4 g/dL (12.0-15.00)
[2024-07-01 07:47] LABS: ALBUMIN 2.1 gm/dL (3.4-5.0); BILIRUBIN TOTAL 0.61 mg/dL (0.3-1.2); CALCIUM 8.2 mg/dL (8.5-10.1); GLOBULINA 3.6 G/DL (2.4-3.5); MAGNESIUM 2.3 mg/dL (1.8-2.4); PHOSPHOROUS 3.5 mg/dL (2.5-4.9); POTASSIUM 3.84 mEq/L (3.5-5.1); TOTAL PROTEIN 5.7 gm/dL (6.4-8.2)
[2024-07-01 08:22] LABS: C-REACTIVE PROTEIN 20.2 MG/DL (0.00-0.29); GFR 9.24
[2024-07-01 08:23] LABS: CREATININE SERUM 4.74 mg/dL (0.55-1.02)
[2024-07-01 08:46] VITALS: BP 121/50
[2024-07-01] MEDS ORDERED: IRON/V.C/V.B12/FOLIC A/VIT. E 1 CAPL CAPLET PO SCH (09:00)
[2024-07-01] MEDS ORDERED: SODIUM BICARBONATE 50MEQ/50ML VIAL IV SCH (17:00)
[2024-07-01 18:09] VITALS: BP 140/72
[2024-07-01] MEDS ORDERED: FUROsemide 20 MG/2 ML VIAL IV PRN (20:30)
[2024-07-02 01:48] VITALS: BP 138/68
[2024-07-02 05:40] VITALS: BP 119/65
[2024-07-02 08:59] VITALS: BP 110/57
[2024-07-02] MEDS ORDERED: PANTOPRAZOLE SODIUM 40 MG TABLET.DR PO SCH (09:00)
[2024-07-02 12:09] LABS: HEMATOCRIT 30.5 % (36.0-45.00); HEMOGLOBIN 10.1 g/dL (12.0-15.00); MEAN CELL VOLUME 84.7 fL (80.00-100.00); MEAN CORPUSCULAR HEMOGLOBIN 27.9 pg (27.00-32.0); PLATELET COUNT 235 K/uL (150-450); RED CELL DISTRIBUTION WIDTH 16.4 % (11.5-14.5)
[2024-07-02 13:55] LABS: ob NEGATIVE (NEGATIVE)
[2024-07-02] MEDS ORDERED: FLUCONAZOLE IN NACL,ISO-OSM 200 MG/100 ML PIGGYBAG IV NR (14:00)
[2024-07-02] MEDS ORDERED: CYANOCOBALAMIN (VITAMIN B-12) 1,000 MCG/ML VIAL IM SCH (17:00)
[2024-07-02 17:02] VITALS: BP 138/55
[2024-07-02] MEDS ORDERED: MIDAZOLAM HCL 2 MG/2 ML VIAL IV PUSH ONE (17:45)
[2024-07-02] MEDS ORDERED: fentaNYL CITRATE 50 MCG/ML AMPUL IV PUSH ONE (17:45)
[2024-07-03 02:49] VITALS: BP 142/77; O2SAT 96
[2024-07-03 05:33] VITALS: BP 143/70; O2SAT 99
[2024-07-03 07:09] LABS: BILIRUBIN TOTAL 0.65 mg/dL (0.3-1.2); CALCIUM 7.9 mg/dL (8.5-10.1); GFR 11.33; GLOBULINA 3.8 G/DL (2.4-3.5); POTASSIUM 3.29 mEq/L (3.5-5.1); TOTAL PROTEIN 5.8 gm/dL (6.4-8.2)
[2024-07-03 07:10] LABS: CREATININE SERUM 3.97 mg/dL (0.55-1.02)
[2024-07-03 09:23] VITALS: BP 121/75
[2024-07-03] MEDS ORDERED: FLUCONAZOLE IN NACL,ISO-OSM 2 MG/ML ML IV SCH (17:00)
[2024-07-03 18:36] VITALS: BP 136/74
[2024-07-03] MEDS ORDERED: POTASSIUM CHLORIDE 20MEQ/100ML H2O PB IV NR (19:30)
[2024-07-04 01:20] VITALS: BP 137/73; O2SAT 99
[2024-07-04 07:02] LABS: ALBUMIN 2.1 gm/dL (3.4-5.0); BILIRUBIN TOTAL 0.41 mg/dL (0.3-1.2); GLOBULINA 3.8 G/DL (2.4-3.5); POTASSIUM 3.73 mEq/L (3.5-5.1); TOTAL PROTEIN 5.9 gm/dL (6.4-8.2)
[2024-07-04 07:04] LABS: CREATININE SERUM 3.97 mg/dL (0.55-1.02); GFR 11.33
[2024-07-04 09:49] VITALS: BP 158/71
[2024-07-04 17:54] VITALS: BP 158/90
[2024-07-05 00:36] VITALS: BP 164/76
[2024-07-05 09:13] VITALS: BP 157/79
[2024-07-05] MEDS ORDERED: FLUCONAZOLE IN NACL,ISO-OSM 2 MG/ML ML IV SCH (17:00)
[2024-07-05 18:20] VITALS: BP 160/80; O2SAT 98
[2024-07-06 02:36] VITALS: BP 154/78; O2SAT 97
[2024-07-06 08:29] LABS: HEMATOCRIT 29.8 % (36.0-45.00); HEMOGLOBIN 10.2 g/dL (12.0-15.00); MEAN CELL VOLUME 83.9 fL (80.00-100.00); MEAN CORPUSCULAR HEMOGLOBIN 28.6 pg (27.00-32.0); PLATELET COUNT 180 K/uL (150-450); RED BLOOD COUNT 3.55 M/uL (4.00-6.00); RED CELL DISTRIBUTION WIDTH 16.6 % (11.5-14.5)
[2024-07-06 08:55] LABS: BILIRUBIN TOTAL 0.71 mg/dL (0.3-1.2); CALCIUM 7.7 mg/dL (8.5-10.1); CREATININE SERUM 3.57 mg/dL (0.55-1.02); GFR 12.81; GLOBULINA 3.7 G/DL (2.4-3.5); MAGNESIUM 1.8 mg/dL (1.8-2.4); POTASSIUM 3.36 mEq/L (3.5-5.1); TOTAL PROTEIN 5.7 gm/dL (6.4-8.2)
[2024-07-06 09:20] VITALS: BP 157/92; O2SAT 98
[2024-07-06] MEDS ORDERED: ONDANSETRON HCL 4 MG in 0.9 % SODIUM CHLORIDE 50 ML IV PRN (14:00)
[2024-07-06 17:57] VITALS: BP 146/83; O2SAT 97
[2024-07-06 21:38] VITALS: BP 153/79; O2SAT 97
[2024-07-07 03:33] VITALS: BP 163/89
[2024-07-07 08:00] VITALS: BP 152/76; O2SAT 95
[2024-07-07 18:37] VITALS: BP 160/85; O2SAT 96
[2024-07-07 22:16] VITALS: BP 160/80; O2SAT 97
[2024-07-08 01:45] VITALS: BP 163/74
[2024-07-08] MEDS ORDERED: PANTOPRAZOLE SODIUM 80 MG in 0.9 % SODIUM CHLORIDE 100 ML IV SCH (05:45)
[2024-07-08 06:33] LABS: HEMATOCRIT 29.4 % (36.0-45.00); MEAN CELL VOLUME 85.2 fL (80.00-100.00); MEAN CORPUSCULAR HEMOGLOBIN 28.9 pg (27.00-32.0); MEAN CORPUSCULAR HGB CONC 33.9 g/dl (32.0-36.0); PLATELET COUNT 164 K/uL (150-450); RED BLOOD COUNT 3.45 M/uL (4.00-6.00); RED CELL DISTRIBUTION WIDTH 16.2 % (11.5-14.5)
[2024-07-08 08:45] VITALS: BP 170/80
[2024-07-08 14:18] LABS: PH,URINE 7.5 (5.0-8.0); URINE APPEARANCE Turbid; URINE BILIRRUBIN Negative (NEGATIVE); URINE BLOOD Moderate; URINE COLOR Yellow; URINE KETONE 15 (NEGATIVE); URINE LEUKOCYTE Large; URINE NITRATE Negative; URINE PROTEIN 30 (NEGATIVE); URINE UROBILINOGEN 0.2 E.U./dl
[2024-07-08 14:19] LABS: URINE EPITHELIAL CELLS 53.3 uL (0.0-38.8); URINE RBC 279.8 uL (0.0-20.8)
[2024-07-08 14:29] LABS: URINE BACTERIA > 9821.5 uL (0.0-1933); URINE CAST > 21.83 uL (0.0-1.40); URINE GLUCOSE 250 MG/DL (NEGATIVE); URINE WBC > 5548.3 uL (0.0-23.2)
[2024-07-08 17:35] VITALS: BP 149/66
[2024-07-08 23:46] LABS: ALBUMIN 2.1 gm/dL (3.4-5.0); BILIRUBIN TOTAL 0.79 mg/dL (0.3-1.2); CALCIUM 8.2 mg/dL (8.5-10.1); CREATININE SERUM 3.43 mg/dL (0.55-1.02); GFR 13.42; GLOBULINA 4.8 G/DL (2.4-3.5); PHOSPHOROUS 2.2 mg/dL (2.5-4.9); TOTAL PROTEIN 6.9 gm/dL (6.4-8.2)
[2024-07-09 00:49] LABS: POTASSIUM 2.97 mEq/L (3.5-5.1)
[2024-07-09 01:56] VITALS: BP 158/85
[2024-07-09] MEDS ORDERED: POTASSIUM CHLORIDE IN WATER 40 MEQ/100 ML PIGGYBAG IV SCH (06:13)
[2024-07-09 08:00] VITALS: BP 175/86
[2024-07-09 18:05] VITALS: BP 170/84
[2024-07-09 21:24] LABS: HEMOGLOBIN 10.4 g/dL (12.0-15.00); MEAN CELL VOLUME 85.8 fL (80.00-100.00); MEAN CORPUSCULAR HEMOGLOBIN 28.8 pg (27.00-32.0); MEAN CORPUSCULAR HGB CONC 33.6 g/dl (32.0-36.0); PLATELET COUNT 196 K/uL (150-450); RED BLOOD COUNT 3.61 M/uL (4.00-6.00); RED CELL DISTRIBUTION WIDTH 16.7 % (11.5-14.5)
[2024-07-09 21:53] LABS: ALBUMIN 2.2 gm/dL (3.4-5.0); BILIRUBIN TOTAL 0.8 mg/dL (0.3-1.2); CALCIUM 8.4 mg/dL (8.5-10.1); CREATININE SERUM 3.45 mg/dL (0.55-1.02); GFR 13.33; GLOBULINA 4.4 G/DL (2.4-3.5); POTASSIUM 3.9 mEq/L (3.5-5.1); TOTAL PROTEIN 6.6 gm/dL (6.4-8.2)
[2024-07-09 22:39] VITALS: BP 182/85
[2024-07-10 01:39] VITALS: BP 170/90
[2024-07-10] MEDS ORDERED: hydrALAZINE HCL 50 MG TABLET PO SCH (09:00)
[2024-07-10 09:07] VITALS: BP 146/74
[2024-07-10 09:38] LABS: HEMATOCRIT 31.1 % (36.0-45.00); HEMOGLOBIN 10.3 g/dL (12.0-15.00); MEAN CELL VOLUME 85.2 fL (80.00-100.00); MEAN CORPUSCULAR HEMOGLOBIN 28.2 pg (27.00-32.0); MEAN CORPUSCULAR HGB CONC 33.1 g/dl (32.0-36.0); PLATELET COUNT 189 K/uL (150-450); RED BLOOD COUNT 3.65 M/uL (4.00-6.00); RED CELL DISTRIBUTION WIDTH 16.5 % (11.5-14.5)
[2024-07-10 10:47] LABS: ALBUMIN 2.2 gm/dL (3.4-5.0); CALCIUM 8.3 mg/dL (8.5-10.1); CREATININE SERUM 3.29 mg/dL (0.55-1.02); GFR 14.08; MAGNESIUM 1.9 mg/dL (1.8-2.4); PHOSPHOROUS 2.5 mg/dL (2.5-4.9); POTASSIUM 3.67 mEq/L (3.5-5.1)
[2024-07-10 17:23] VITALS: BP 170/85
[2024-07-10 22:22] VITALS: BP 106/84
[2024-07-11 02:55] VITALS: BP 156/80
[2024-07-11 08:47] VITALS: BP 152/87
[2024-07-11 16:19] VITALS: BP 133/82
[2024-07-12 02:10] VITALS: BP 155/80
[2024-07-12 05:50] LABS: HEMATOCRIT 30.1 % (36.0-45.00); MEAN CELL VOLUME 85.6 fL (80.00-100.00); MEAN CORPUSCULAR HEMOGLOBIN 28.4 pg (27.00-32.0); MEAN CORPUSCULAR HGB CONC 33.2 g/dl (32.0-36.0); PLATELET COUNT 213 K/uL (150-450); RED BLOOD COUNT 3.52 M/uL (4.00-6.00); RED CELL DISTRIBUTION WIDTH 16.8 % (11.5-14.5)
[2024-07-12 06:48] LABS: ALBUMIN 2.1 gm/dL (3.4-5.0); BILIRUBIN TOTAL 0.96 mg/dL (0.3-1.2); CALCIUM 8.4 mg/dL (8.5-10.1); CREATININE SERUM 3.15 mg/dL (0.55-1.02); GFR 14.8; GLOBULINA 4.7 G/DL (2.4-3.5); MAGNESIUM 1.9 mg/dL (1.8-2.4); POTASSIUM 3.18 mEq/L (3.5-5.1); TOTAL PROTEIN 6.8 gm/dL (6.4-8.2)
[2024-07-12 08:00] VITALS: BP 139/70
[2024-07-12] MEDS ORDERED: PANTOPRAZOLE SODIUM 40 MG TABLET.DR PO SCH (09:00)
[2024-07-12] MEDS ORDERED: POTASSIUM PHOS,M-BASIC-D-BASIC 15 MM in 0.9 % SODIUM CHLORIDE 250 ML IV NR (11:00)
[2024-07-12] MEDS ORDERED: IOVERSOL 320 MG/ML - 50 ML VIAL IV ONE (16:40)
[2024-07-12] MEDS ORDERED: BUPIVACAINE HCL/MPF 0.5% 30ML VIAL ONE (16:40)
[2024-07-12] MEDS ORDERED: POTASSIUM CHLORIDE IN WATER 40 MEQ/100 ML PIGGYBAG IV SCH (17:00)
[2024-07-12 17:59] VITALS: BP 137/70
[2024-07-12] MEDS ORDERED: GABAPENTIN 100 MG CAPSULE PO SCH (22:13)
[2024-07-12 22:55] VITALS: BP 146/65
[2024-07-13 01:58] VITALS: BP 117/60
[2024-07-13 08:44] VITALS: BP 135/69
[2024-07-13 17:04] VITALS: BP 143/78
[2024-07-14 00:59] VITALS: BP 158/79
[2024-07-14 05:49] LABS: HEMATOCRIT 29.9 % (36.0-45.00); HEMOGLOBIN 9.8 g/dL (12.0-15.00); MEAN CELL VOLUME 86.2 fL (80.00-100.00); MEAN CORPUSCULAR HEMOGLOBIN 28.3 pg (27.00-32.0); MEAN CORPUSCULAR HGB CONC 32.8 g/dl (32.0-36.0); PLATELET COUNT 207 K/uL (150-450); RED BLOOD COUNT 3.47 M/uL (4.00-6.00); RED CELL DISTRIBUTION WIDTH 17.5 % (11.5-14.5)
[2024-07-14 06:34] LABS: ALBUMIN 2.1 gm/dL (3.4-5.0); BILIRUBIN TOTAL 0.79 mg/dL (0.3-1.2); CREATININE SERUM 2.67 mg/dL (0.55-1.02); GFR 17.91; GLOBULINA 4.4 G/DL (2.4-3.5); MAGNESIUM 1.8 mg/dL (1.8-2.4); POTASSIUM 3.77 mEq/L (3.5-5.1); TOTAL PROTEIN 6.5 gm/dL (6.4-8.2)
[2024-07-14 06:52] LABS: PHOSPHOROUS 1.9 mg/dL (2.5-4.9)
[2024-07-14 09:37] VITALS: BP 114/69
[2024-07-14] MEDS ORDERED: CLONAZEPAM 0.5 MG TABLET PO PRN (16:15)
[2024-07-14] MEDS ORDERED: POTASSIUM PHOS,M-BASIC-D-BASIC 3 MM/ML VIAL IV SCH (17:00)
[2024-07-14 17:09] VITALS: BP 136/76
[2024-07-15 02:13] VITALS: BP 136/75; O2SAT 97
[2024-07-15 08:25] VITALS: BP 132/75; O2SAT 95
[2024-07-15 21:04] VITALS: BP 172/93
[2024-07-16 02:18] VITALS: BP 140/71
[2024-07-16 07:20] LABS: HEMATOCRIT 27.6 % (36.0-45.00); HEMOGLOBIN 9.3 g/dL (12.0-15.00); MEAN CELL VOLUME 86.6 fL (80.00-100.00); MEAN CORPUSCULAR HEMOGLOBIN 29.3 pg (27.00-32.0); MEAN CORPUSCULAR HGB CONC 33.8 g/dl (32.0-36.0); PLATELET COUNT 223 K/uL (150-450); RED BLOOD COUNT 3.19 M/uL (4.00-6.00); RED CELL DISTRIBUTION WIDTH 17.5 % (11.5-14.5)
[2024-07-16 07:31] LABS: BILIRUBIN TOTAL 0.43 mg/dL (0.3-1.2); CALCIUM 7.5 mg/dL (8.5-10.1); CREATININE SERUM 2.23 mg/dL (0.55-1.02); GFR 22.05; MAGNESIUM 1.4 mg/dL (1.8-2.4); PHOSPHOROUS 2.6 mg/dL (2.5-4.9); POTASSIUM 4.06 mEq/L (3.5-5.1)
[2024-07-16 08:29] VITALS: BP 136/76; O2SAT 98
[2024-07-16 17:11] VITALS: BP 164/74; O2SAT 99
[2024-07-16] MEDS ORDERED: MAGNESIUM SULFATE IN WATER 2 GM/50 ML PIGGYBAG IV NR (17:15)
[2024-07-17 00:45] VITALS: BP 134/81; O2SAT 97
[2024-07-17 09:12] VITALS: BP 134/76; BP 34/76; O2SAT 98
[2024-07-17 16:00] VITALS: BP 140/73; O2SAT 97
[2024-07-18 01:59] VITALS: BP 157/89; O2SAT 100
[2024-07-18 09:24] VITALS: BP 129/77; O2SAT 96
[2024-07-18] MEDS ORDERED: FLUCONAZOLE IN NACL,ISO-OSM 200 MG/100 ML PIGGYBAG IV SCH (17:00)
[2024-07-18 19:21] VITALS: BP 137/78; O2SAT 97
[2024-07-18 22:53] VITALS: BP 110/70; O2SAT 97
[2024-07-18 23:12] LABS: HEMATOCRIT 28.6 % (36.0-45.00); MEAN CELL VOLUME 85.6 fL (80.00-100.00); MEAN CORPUSCULAR HGB CONC 33.1 g/dl (32.0-36.0); PLATELET COUNT 195 K/uL (150-450); RED BLOOD COUNT 3.34 M/uL (4.00-6.00)
[2024-07-18 23:24] LABS: HEMOGLOBIN 9.5 g/dL (12.0-15.00); MEAN CORPUSCULAR HEMOGLOBIN 28.4 pg (27.00-32.0)
[2024-07-18 23:42] LABS: ALBUMIN 2.3 gm/dL (3.4-5.0); CREATININE SERUM 2.43 mg/dL (0.55-1.02); GFR 19.97; MAGNESIUM 1.6 mg/dL (1.8-2.4); POTASSIUM 3.79 mEq/L (3.5-5.1)
[2024-07-19 02:22] VITALS: BP 106/70; O2SAT 96
[2024-07-19] MEDS ORDERED: POTASSIUM PHOS,M-BASIC-D-BASIC 3 MM/ML VIAL IV ONE (07:00)
[2024-07-19] MEDS ORDERED: MAGNESIUM SULFATE IN WATER 2 GM/50 ML PIGGYBAG IV NR (08:00)
[2024-07-19 08:47] VITALS: BP 102/65; O2SAT 94
[2024-07-19] MEDS ORDERED: POTASSIUM PHOS,M-BASIC-D-BASIC 15 MM in 0.9 % SODIUM CHLORIDE 250 ML IV ONE (10:00)
[2024-07-19] MEDS ORDERED: MAGNESIUM SULFATE IN WATER 2 GM/50 ML PIGGYBAG IV ONE (10:51)
[2024-07-19 15:26] LABS: INR 1.1; PARTIAL THROMBOPLASTIN TIME 35.9 SECONDS (22.0-34.0); PROTHROMBIN TIME 11.9 SECONDS (9.0-11.5)
[2024-07-19 17:38] VITALS: BP 100/56; O2SAT 99
[2024-07-19 22:45] VITALS: BP 90/50; O2SAT 98
[2024-07-20 01:50] VITALS: BP 112/66; O2SAT 97
[2024-07-20 09:53] VITALS: BP 122/74; O2SAT 96
[2024-07-20 17:41] VITALS: BP 123/76; O2SAT 98
[2024-07-21 01:09] VITALS: BP 140/79; O2SAT 98
[2024-07-21 09:18] VITALS: BP 129/70; O2SAT 98
[2024-07-21 15:24] LABS: URINE APPEARANCE Clear; URINE BILIRRUBIN Negative (NEGATIVE); URINE COLOR Yellow; URINE KETONE Negative (NEGATIVE); URINE LEUKOCYTE Large; URINE NITRATE Negative; URINE PROTEIN 30 (NEGATIVE); URINE UROBILINOGEN 0.2 E.U./dl
[2024-07-21 15:29] LABS: URINE BACTERIA 5460.3 uL (0.0-1933); URINE EPITHELIAL CELLS 5.8 uL (0.0-38.8); URINE RBC 16.4 uL (0.0-20.8)
[2024-07-21 15:35] LABS: URINE BLOOD TRACE; URINE CAST 0.15 uL (0.0-1.40); URINE GLUCOSE 250 MG/DL (NEGATIVE)
[2024-07-21 17:22] VITALS: BP 146/82; O2SAT 97
[2024-07-21] MEDS ORDERED: ACETAMINOPHEN 500 MG GEL..CAP PO PRN (18:30)
[2024-07-21 21:56] VITALS: BP 144/71; O2SAT 98
[2024-07-22 01:16] VITALS: BP 100/62; O2SAT 99
[2024-07-22 06:46] LABS: HEMATOCRIT 25.5 % (36.0-45.00); MEAN CELL VOLUME 85.7 fL (80.00-100.00); MEAN CORPUSCULAR HGB CONC 33.8 g/dl (32.0-36.0); PLATELET COUNT 189 K/uL (150-450); RED BLOOD COUNT 2.98 M/uL (4.00-6.00); RED CELL DISTRIBUTION WIDTH 16.9 % (11.5-14.5)
[2024-07-22 06:53] LABS: ALBUMIN 2.1 gm/dL (3.4-5.0); BILIRUBIN TOTAL 0.71 mg/dL (0.3-1.2); CALCIUM 7.9 mg/dL (8.5-10.1); CREATININE SERUM 2.27 mg/dL (0.55-1.02); GFR 21.61; GLOBULINA 3.7 G/DL (2.4-3.5); MAGNESIUM 1.7 mg/dL (1.8-2.4); PHOSPHOROUS 2.8 mg/dL (2.5-4.9); POTASSIUM 4.09 mEq/L (3.5-5.1); TOTAL PROTEIN 5.8 gm/dL (6.4-8.2); URIC ACID 2.2 mg/dL (2.5-7.5)
[2024-07-22 07:04] LABS: HEMOGLOBIN 8.6 g/dL (12.0-15.00); MEAN CORPUSCULAR HEMOGLOBIN 28.8 pg (27.00-32.0)
[2024-07-22 09:05] VITALS: BP 115/62; O2SAT 98
[2024-07-22 15:21] LABS: URINE APPEARANCE Clear; URINE BILIRRUBIN Negative (NEGATIVE); URINE BLOOD Moderate; URINE COLOR Yellow; URINE KETONE Trace (NEGATIVE); URINE LEUKOCYTE Moderate; URINE NITRATE Negative; URINE UROBILINOGEN 0.2 E.U./dl
[2024-07-22 15:23] LABS: URINE BACTERIA 7365.5 uL (0.0-1933); URINE RBC 190.5 uL (0.0-20.8); URINE WBC 310.5 uL (0.0-23.2)
[2024-07-22] MEDS ORDERED: VANCOMYCIN HCL 1,000 MG VIAL IV SCH (15:30)
[2024-07-22] MEDS ORDERED: MEROPENEM 500 MG/VIAL VIAL IV NR (15:30)
[2024-07-22 15:34] LABS: URINE GLUCOSE 500 MG/DL (NEGATIVE); URINE PROTEIN 100 (NEGATIVE)
[2024-07-22 17:58] VITALS: BP 140/70
[2024-07-23 01:54] VITALS: BP 130/71; O2SAT 100
[2024-07-23] MEDS ORDERED: MEROPENEM 500 MG/VIAL VIAL IV SCH (05:00)
[2024-07-23 07:55] VITALS: BP 127/79; O2SAT 97
[2024-07-23 17:22] VITALS: BP 159/82
[2024-07-24 02:27] VITALS: BP 156/84
[2024-07-24] MEDS ORDERED: MORPHINE SULFATE 4 MG/ML CARTRIDGE IV PRN (07:45)
[2024-07-24 08:27] VITALS: BP 139/72; O2SAT 99
[2024-07-24 13:57] LABS: ob NEGATIVE (NEGATIVE)
[2024-07-24 18:16] VITALS: BP 155/79
[2024-07-25 01:43] VITALS: BP 146/87; O2SAT 98
[2024-07-25 07:00] LABS: HEMATOCRIT 25.6 % (36.0-45.00); MEAN CELL VOLUME 86.7 fL (80.00-100.00); MEAN CORPUSCULAR HEMOGLOBIN 28.8 pg (27.00-32.0); MEAN CORPUSCULAR HGB CONC 33.2 g/dl (32.0-36.0); PLATELET COUNT 190 K/uL (150-450); RED BLOOD COUNT 2.95 M/uL (4.00-6.00); RED CELL DISTRIBUTION WIDTH 16.6 % (11.5-14.5)
[2024-07-25 07:32] LABS: HEMOGLOBIN 8.5 g/dL (12.0-15.00)
[2024-07-25 09:27] VITALS: BP 167/85; O2SAT 96
[2024-07-25] MEDS ORDERED: CEFEPIME HCL 2,000 MG VIAL IV NR (14:33)
[2024-07-25 16:47] VITALS: BP 112/70
[2024-07-25] MEDS ORDERED: CIPROFLOXACIN IN 5 % DEXTROSE 400 MG/200 ML PIGGYBAG IV SCH (17:00)
[2024-07-26 01:16] VITALS: BP 155/83; O2SAT 98
[2024-07-26 02:07] LABS: HEMATOCRIT 28.8 % (36.0-45.00); HEMOGLOBIN 9.6 g/dL (12.0-15.00); MEAN CELL VOLUME 87.1 fL (80.00-100.00); MEAN CORPUSCULAR HGB CONC 33.3 g/dl (32.0-36.0); PLATELET COUNT 189 K/uL (150-450); RED CELL DISTRIBUTION WIDTH 16.6 % (11.5-14.5)
[2024-07-26 02:16] LABS: ALBUMIN 2.2 gm/dL (3.4-5.0); BILIRUBIN TOTAL 0.45 mg/dL (0.3-1.2); CALCIUM 7.6 mg/dL (8.5-10.1); CREATININE SERUM 2.25 mg/dL (0.55-1.02); GFR 21.83; GLOBULINA 3.6 G/DL (2.4-3.5); POTASSIUM 3.97 mEq/L (3.5-5.1); TOTAL PROTEIN 5.8 gm/dL (6.4-8.2)
[2024-07-26] MEDS ORDERED: AMINO ACIDS/PROTEIN HYDROLYS 30 ML BLIST.PACK PO SCH (09:00)
[2024-07-26 09:38] VITALS: BP 154/82; O2SAT 97
[2024-07-26] MEDS ORDERED: CEFEPIME HCL 2,000 MG VIAL IV SCH (12:00)
[2024-07-26] MEDS ORDERED: IOVERSOL 320 MG/ML - 50 ML VIAL IV ONE (15:15)
[2024-07-26] MEDS ORDERED: CHLORHEXIDINE GLUCONATE 120 ML BOTTLE TOP ONE (15:15)
[2024-07-26] MEDS ORDERED: FLUCONAZOLE IN NACL,ISO-OSM 200 MG/100 ML PIGGYBAG IV SCH (17:00)
[2024-07-26 19:00] VITALS: BP 184/87
[2024-07-27 02:28] VITALS: BP 151/79
[2024-07-27 08:57] VITALS: BP 148/76; O2SAT 98
[2024-07-27 17:22] VITALS: BP 153/80
[2024-07-28 02:28] VITALS: BP 146/81
[2024-07-28 08:45] VITALS: BP 144/83
[2024-07-28 17:42] VITALS: BP 148/81
[2024-07-28 22:01] VITALS: BP 167/88
[2024-07-29 02:51] VITALS: BP 144/81; O2SAT 96
[2024-07-29 07:49] LABS: URINE APPEARANCE Clear; URINE BILIRRUBIN Negative (NEGATIVE); URINE COLOR Yellow; URINE KETONE Negative (NEGATIVE); URINE LEUKOCYTE Large; URINE NITRATE Negative; URINE PROTEIN 30 (NEGATIVE); URINE UROBILINOGEN 0.2 E.U./dl
[2024-07-29 07:54] LABS: URINE BACTERIA 376.7 uL (0.0-1933); URINE CAST 1.98 uL (0.0-1.40); URINE EPITHELIAL CELLS 27.2 uL (0.0-38.8); URINE RBC 44.2 uL (0.0-20.8); URINE WBC 177.9 uL (0.0-23.2)
[2024-07-29 08:05] LABS: URINE BLOOD TRACES; URINE GLUCOSE 250 MG/DL (NEGATIVE)
[2024-07-29 08:07] VITALS: BP 160/80
[2024-07-29 09:47] LABS: HEMATOCRIT 31.9 % (36.0-45.00); HEMOGLOBIN 10.7 g/dL (12.0-15.00); MEAN CELL VOLUME 87.8 fL (80.00-100.00); MEAN CORPUSCULAR HEMOGLOBIN 29.4 pg (27.00-32.0); MEAN CORPUSCULAR HGB CONC 33.5 g/dl (32.0-36.0); PLATELET COUNT 151 K/uL (150-450); RED BLOOD COUNT 3.63 M/uL (4.00-6.00); RED CELL DISTRIBUTION WIDTH 16.3 % (11.5-14.5)
[2024-07-29 10:31] LABS: ALBUMIN 2.4 gm/dL (3.4-5.0); BILIRUBIN TOTAL 0.74 mg/dL (0.3-1.2); CALCIUM 8.3 mg/dL (8.5-10.1); CREATININE SERUM 1.96 mg/dL (0.55-1.02); GFR 25.59; GLOBULINA 4.1 G/DL (2.4-3.5); POTASSIUM 3.57 mEq/L (3.5-5.1); TOTAL PROTEIN 6.5 gm/dL (6.4-8.2)
[2024-07-29] MEDS ORDERED: AMINO ACIDS 1 EACH TABLET PO SCH (17:00)
[2024-07-29 17:01] VITALS: BP 142/82
[2024-07-29 21:57] VITALS: BP 119/65
[2024-07-30 00:44] VITALS: BP 130/74; O2SAT 99
[2024-07-30 08:02] VITALS: BP 142/77
[2024-07-30 15:45] VITALS: BP 149/77; O2SAT 96
[2024-07-31 00:58] VITALS: BP 127/73; O2SAT 98
[2024-07-31 04:21] VITALS: BP 148/79
[2024-07-31 08:22] VITALS: BP 145/83; O2SAT 98
[2024-07-31 17:20] VITALS: BP 134/79; O2SAT 95
[2024-08-01 01:20] VITALS: BP 153/82; O2SAT 99
[2024-08-01 07:04] LABS: ALBUMIN 2.5 gm/dL (3.4-5.0); BILIRUBIN TOTAL 0.77 mg/dL (0.3-1.2); CALCIUM 8.3 mg/dL (8.5-10.1); CREATININE SERUM 1.76 mg/dL (0.55-1.02); GFR 28.98; GLOBULINA 3.9 G/DL (2.4-3.5); POTASSIUM 3.6 mEq/L (3.5-5.1); TOTAL PROTEIN 6.4 gm/dL (6.4-8.2)
[2024-08-01 08:56] VITALS: BP 157/84; O2SAT 97
[2024-08-01] MEDS ORDERED: ONDANSETRON HCL 2 MG/ML VIAL IV PRN (13:45)
[2024-08-01] MEDS ORDERED: SUCRALFATE 1 G TABLET PO SCH (17:00)
[2024-08-01 18:01] VITALS: BP 117/75; O2SAT 98
[2024-08-01 22:23] VITALS: BP 131/79; O2SAT 97
[2024-08-02 00:41] VITALS: BP 138/89; O2SAT 96
[2024-08-02 08:24] VITALS: BP 149/63; O2SAT 98
[2024-08-02 16:59] VITALS: BP 135/84; O2SAT 98
[2024-08-02 22:03] VITALS: BP 146/80; O2SAT 98
[2024-08-03] VITALS: BP 129/73; O2SAT 97
[2024-08-03 05:00] VITALS: BP 125/77; O2SAT 96
[2024-08-03 07:46] LABS: ALBUMIN 2.3 gm/dL (3.4-5.0); BILIRUBIN TOTAL 0.86 mg/dL (0.3-1.2); CALCIUM 7.9 mg/dL (8.5-10.1); CREATININE SERUM 1.91 mg/dL (0.55-1.02); GFR 26.37; MAGNESIUM 1.5 mg/dL (1.8-2.4); POTASSIUM 3.58 mEq/L (3.5-5.1); TOTAL PROTEIN 6.3 gm/dL (6.4-8.2)
[2024-08-03 07:55] LABS: HEMATOCRIT 30.1 % (36.0-45.00); HEMOGLOBIN 10.3 g/dL (12.0-15.00); MEAN CELL VOLUME 85.3 fL (80.00-100.00); MEAN CORPUSCULAR HEMOGLOBIN 29.3 pg (27.00-32.0); MEAN CORPUSCULAR HGB CONC 34.4 g/dl (32.0-36.0); PLATELET COUNT 139 K/uL (150-450); RED BLOOD COUNT 3.53 M/uL (4.00-6.00); RED CELL DISTRIBUTION WIDTH 16.3 % (11.5-14.5)
[2024-08-03 08:46] LABS: C-REACTIVE PROTEIN 10.7 MG/DL (0.00-0.29); PHOSPHOROUS 1.6 mg/dL (2.5-4.9)
[2024-08-03 08:56] VITALS: BP 144/75; O2SAT 97
[2024-08-03] MEDS ORDERED: CEFEPIME HCL 2,000 MG VIAL IV SCH (12:00)
[2024-08-03] MEDS ORDERED: POTASSIUM PHOS,M-BASIC-D-BASIC 3 MM/ML VIAL IV SCH (12:00)
[2024-08-03 16:30] VITALS: BP 131/66
[2024-08-03] MEDS ORDERED: CIPROFLOXACIN IN 5 % DEXTROSE 400 MG/200 ML PIGGYBAG IV SCH (17:00)
[2024-08-03] MEDS ORDERED: FLUCONAZOLE IN NACL,ISO-OSM 200 MG/100 ML PIGGYBAG IV SCH (17:00)
[2024-08-04 01:00] VITALS: BP 124/75; O2SAT 96
[2024-08-04 06:00] VITALS: BP 151/69; O2SAT 96
[2024-08-04] MEDS ORDERED: MAGNESIUM SULFATE IN WATER 50 ML IV NR (08:00)
[2024-08-04 10:56] VITALS: BP 145/74; O2SAT 96
[2024-08-04 16:53] VITALS: BP 146/80; O2SAT 98
[2024-08-05 01:24] VITALS: BP 166/75; O2SAT 97
[2024-08-05] MEDS ORDERED: MORPHINE SULFATE 2 MG/ML CARTRIDGE IV PRN (03:30)
[2024-08-05 06:51] LABS: HEMATOCRIT 27.7 % (36.0-45.00); HEMOGLOBIN 9.4 g/dL (12.0-15.00); MEAN CELL VOLUME 85.4 fL (80.00-100.00); MEAN CORPUSCULAR HEMOGLOBIN 28.9 pg (27.00-32.0); MEAN CORPUSCULAR HGB CONC 33.9 g/dl (32.0-36.0); PLATELET COUNT 139 K/uL (150-450); RED BLOOD COUNT 3.24 M/uL (4.00-6.00); RED CELL DISTRIBUTION WIDTH 15.3 % (11.5-14.5)
[2024-08-05 07:27] LABS: ALBUMIN 2.2 gm/dL (3.4-5.0); ALKALINE PHOSPHATASE 125 U/L (50-136); AST/SGOT 9 U/L (15-37); BILIRUBIN TOTAL 0.87 mg/dL (0.3-1.2); BLOOD UREA NITROGEN 9 mg/dL (7-18); BUN CREA RATIO 6 (7.0-25.0); CALCIUM 8.3 mg/dL (8.5-10.1); CARBON DIOXIDE 20 mEq/L (21-32); GFR 32.35; GLOBULINA 3.9 G/DL (2.4-3.5); GLUCOSE FASTING 87 mg/dL (65-100); OSMOLALITY SERUM 289 MOSM/KG (275-295); POTASSIUM 3.65 mEq/L (3.5-5.1); SODIUM 146 mmol/L (136-145); TOTAL PROTEIN 6.1 gm/dL (6.4-8.2)
[2024-08-05 07:52] LABS: ANION GAP 12 (10.0-20.0); PHOSPHOROUS 1.9 mg/dL (2.5-4.9)
[2024-08-05 07:53] LABS: ALT/SGPT < 6 U/L (12-78)
[2024-08-05 07:55] LABS: CHLORIDE 118 mmol/L (98-107)
[2024-08-05 08:16] VITALS: BP 144/78; O2SAT 98
[2024-08-05] MEDS ORDERED: POTASSIUM PHOS,M-BASIC-D-BASIC 18 MM in 0.9 % SODIUM CHLORIDE 500 ML IV NR (08:30)
[2024-08-05 15:25] VITALS: BP 149/78; O2SAT 95
[2024-08-05] MEDS ORDERED: fentaNYL CITRATE 50 MCG/ML AMPUL IV PUSH ONE (16:15)
[2024-08-05] MEDS ORDERED: MIDAZOLAM HCL 2 MG/2 ML VIAL IV PUSH ONE (16:15)
[2024-08-06 00:07] VITALS: BP 145/83
[2024-08-06 08:13] VITALS: BP 153/82; O2SAT 97; O2SAT 99
[2024-08-06 17:26] VITALS: BP 140/586
[2024-08-06 17:40] VITALS: BP 140/58
[2024-08-07 00:08] VITALS: BP 131/77; O2SAT 98
[2024-08-07] MEDS ORDERED: MORPHINE SULFATE 2 MG/ML CARTRIDGE IV PRN (04:30)
[2024-08-07] MEDS ORDERED: GABAPENTIN 100 MG CAPSULE PO SCH (09:00)
[2024-08-07 09:41] VITALS: BP 149/82; O2SAT 98
[2024-08-07 16:29] VITALS: BP 158/83
[2024-08-07] MEDS ORDERED: GABAPENTIN 300 MG CAPSULE PO SCH (21:00)
[2024-08-07 21:57] VITALS: BP 173/85
[2024-08-08 01:30] VITALS: BP 161/88; O2SAT 98
[2024-08-08 08:34] VITALS: BP 161/83; O2SAT 97
[2024-08-08 16:42] VITALS: BP 150/88
[2024-08-08] MEDS ORDERED: POLYETHYLENE GLYCOL 3350 17 GM BLIST.PACK PO SCH (18:15)
[2024-08-08] MEDS ORDERED: ONDANSETRON HCL 2 MG/ML VIAL IV PRN (19:45)
[2024-08-08 22:49] VITALS: BP 158/88
[2024-08-09 01:50] VITALS: BP 149/80; O2SAT 99
[2024-08-09 05:43] LABS: HEMATOCRIT 29.3 % (36.0-45.00); HEMOGLOBIN 9.9 g/dL (12.0-15.00); MEAN CELL VOLUME 85.6 fL (80.00-100.00); MEAN CORPUSCULAR HEMOGLOBIN 28.9 pg (27.00-32.0); MEAN CORPUSCULAR HGB CONC 33.6 g/dl (32.0-36.0); PLATELET COUNT 177 K/uL (150-450); RED BLOOD COUNT 3.42 M/uL (4.00-6.00); RED CELL DISTRIBUTION WIDTH 15.3 % (11.5-14.5)
[2024-08-09 05:59] LABS: ALBUMIN 2.2 gm/dL (3.4-5.0); CALCIUM 8.2 mg/dL (8.5-10.1); CREATININE SERUM 2.13 mg/dL (0.55-1.02); GFR 23.25
[2024-08-09 06:58] LABS: PHOSPHOROUS 1.5 mg/dL (2.5-4.9)
[2024-08-09 07:00] LABS: MAGNESIUM 1.8 mg/dL (1.8-2.4); POTASSIUM 4.22 mEq/L (3.5-5.1)
[2024-08-09] MEDS ORDERED: SODIUM CHLORIDE 0.45 % 1,000 ML IV SCH (07:30)
[2024-08-09] MEDS ORDERED: POTASSIUM PHOS,M-BASIC-D-BASIC 3 MM/ML VIAL IV SCH (09:00)
[2024-08-09 10:39] VITALS: BP 166/86; O2SAT 99
[2024-08-09 17:11] VITALS: BP 142/83
[2024-08-09] MEDS ORDERED: CLOTRIMAZOLE 21GM VAG. CREAM.APPL VAG SCH (19:34)
[2024-08-09 22:19] VITALS: BP 173/87
[2024-08-10] VITALS: BP 173/85
[2024-08-10 08:45] VITALS: BP 142/80; O2SAT 99
[2024-08-10] MEDS ORDERED: hydrALAZINE HCL 20 MG VIAL IV PRN (10:30)
[2024-08-10] MEDS ORDERED: AMLODIPINE BESYLATE 5 MG TABLET PO NR (11:10)
[2024-08-10 14:10] VITALS: BP 145/86
[2024-08-10] MEDS ORDERED: CLOTRIMAZOLE 45 GM TUBE VAG SCH (17:00)
[2024-08-10 17:09] VITALS: BP 151/89; O2SAT 98
[2024-08-11 00:42] VITALS: BP 152/84; O2SAT 98
[2024-08-11 08:00] LABS: HEMATOCRIT 30.8 % (36.0-45.00); HEMOGLOBIN 10.2 g/dL (12.0-15.00); MEAN CELL VOLUME 85.2 fL (80.00-100.00); MEAN CORPUSCULAR HEMOGLOBIN 28.3 pg (27.00-32.0); MEAN CORPUSCULAR HGB CONC 33.2 g/dl (32.0-36.0); PLATELET COUNT 184 K/uL (150-450); RED BLOOD COUNT 3.61 M/uL (4.00-6.00); RED CELL DISTRIBUTION WIDTH 15.8 % (11.5-14.5)
[2024-08-11 08:34] LABS: ALBUMIN 2.4 gm/dL (3.4-5.0); BILIRUBIN TOTAL 0.43 mg/dL (0.3-1.2); CALCIUM 8.2 mg/dL (8.5-10.1); CREATININE SERUM 1.86 mg/dL (0.55-1.02); GFR 27.19; GLOBULINA 3.9 G/DL (2.4-3.5); MAGNESIUM 1.7 mg/dL (1.8-2.4); POTASSIUM 3.62 mEq/L (3.5-5.1); TOTAL PROTEIN 6.3 gm/dL (6.4-8.2)
[2024-08-11] MEDS ORDERED: AMLODIPINE BESYLATE 5 MG TABLET PO SCH (09:00)
[2024-08-11] MEDS ORDERED: POTASSIUM PHOS,M-BASIC-D-BASIC 3 MM/ML VIAL IV SCH (09:00)
[2024-08-11 09:07] LABS: PHOSPHOROUS 1.9 mg/dL (2.5-4.9)
[2024-08-11 09:20] VITALS: BP 155/87; O2SAT 100
[2024-08-11] MEDS ORDERED: MAGNESIUM SULFATE IN WATER 50 ML IV NR (15:30)
[2024-08-11 16:00] VITALS: BP 139/81; O2SAT 98
[2024-08-12 00:56] VITALS: BP 139/80; O2SAT 99
[2024-08-12 08:28] VITALS: BP 140/80; O2SAT 97
[2024-08-12 16:01] VITALS: BP 117/69
[2024-08-13 01:38] VITALS: BP 134/78; O2SAT 99
[2024-08-13 06:18] LABS: HEMATOCRIT 30.1 % (36.0-45.00); HEMOGLOBIN 10.2 g/dL (12.0-15.00); MEAN CELL VOLUME 85.6 fL (80.00-100.00); MEAN CORPUSCULAR HEMOGLOBIN 28.9 pg (27.00-32.0); MEAN CORPUSCULAR HGB CONC 33.8 g/dl (32.0-36.0); PLATELET COUNT 180 K/uL (150-450); RED BLOOD COUNT 3.52 M/uL (4.00-6.00); RED CELL DISTRIBUTION WIDTH 15.8 % (11.5-14.5)
[2024-08-13 07:06] LABS: ALBUMIN 2.4 gm/dL (3.4-5.0); BILIRUBIN TOTAL 0.46 mg/dL (0.3-1.2); CALCIUM 7.9 mg/dL (8.5-10.1); CREATININE SERUM 1.71 mg/dL (0.55-1.02); GFR 29.96; MAGNESIUM 1.8 mg/dL (1.8-2.4); POTASSIUM 3.95 mEq/L (3.5-5.1); TOTAL PROTEIN 6.4 gm/dL (6.4-8.2)
[2024-08-13] MEDS ORDERED: POTASSIUM PHOS,M-BASIC-D-BASIC 3 MM/ML VIAL IV NR (07:32)
[2024-08-13 08:49] VITALS: BP 151/73
[2024-08-13 15:05] VITALS: BP 153/76; O2SAT 100
[2024-08-14] VITALS: BP 131/78; O2SAT 96
[2024-08-14 08:46] VITALS: BP 160/80
[2024-08-14 13:27] LABS: INR 1.07; PARTIAL THROMBOPLASTIN TIME 32.1 SECONDS (22.0-34.0); PROTHROMBIN TIME 11.6 SECONDS (9.0-11.5)
[2024-08-14 16:51] VITALS: BP 132/84; O2SAT 98
[2024-08-14] MEDS ORDERED: IOVERSOL 320 MG/ML - 100 ML VIAL IV ONE (17:30)
[2024-08-14] MEDS ORDERED: IOVERSOL 320 MG/ML - 50 ML VIAL IV ONE (17:45)
[2024-08-14 21:50] VITALS: BP 150/85; O2SAT 100
[2024-08-15 01:56] VITALS: BP 146/73; O2SAT 99
[2024-08-15 06:21] LABS: HEMOGLOBIN 10.5 g/dL (12.0-15.00); MEAN CELL VOLUME 89.1 fL (80.00-100.00); MEAN CORPUSCULAR HEMOGLOBIN 29.2 pg (27.00-32.0); MEAN CORPUSCULAR HGB CONC 32.8 g/dl (32.0-36.0); PLATELET COUNT 159 K/uL (150-450); RED CELL DISTRIBUTION WIDTH 16.6 % (11.5-14.5)
[2024-08-15 06:52] LABS: ALBUMIN 2.5 gm/dL (3.4-5.0); BILIRUBIN TOTAL 0.48 mg/dL (0.3-1.2); CALCIUM 8.1 mg/dL (8.5-10.1); CREATININE SERUM 1.57 mg/dL (0.55-1.02); GFR 33.06; GLOBULINA 3.9 G/DL (2.4-3.5); MAGNESIUM 1.7 mg/dL (1.8-2.4); PHOSPHOROUS 2.2 mg/dL (2.5-4.9); POTASSIUM 3.89 mEq/L (3.5-5.1); TOTAL PROTEIN 6.4 gm/dL (6.4-8.2)
[2024-08-15] MEDS ORDERED: MAGNESIUM SULFATE 2,000 MG in 0.9 % SODIUM CHLORIDE 100 ML IV NR (07:45)
[2024-08-15 08:51] VITALS: BP 133/77
[2024-08-15] MEDS ORDERED: POTASSIUM PHOS,M-BASIC-D-BASIC 15 MM in 0.9 % SODIUM CHLORIDE 250 ML IV ONE (17:00)
[2024-08-15] MEDS ORDERED: DESMOPRESSIN ACETATE 4 MCG/ML AMPUL IV ONE (17:00)
[2024-08-15 17:40] VITALS: BP 119/75; O2SAT 97
[2024-08-16 01:25] VITALS: BP 124/74; O2SAT 99
[2024-08-16] MEDS ORDERED: DESMOPRESSIN ACETATE 4 MCG/ML AMPUL IV SCH (17:00)
[2024-08-16 18:26] VITALS: BP 133/72
[2024-08-17 02:34] VITALS: BP 113/64; O2SAT 100
[2024-08-17 05:36] LABS: HEMATOCRIT 28.1 % (36.0-45.00); MEAN CELL VOLUME 85.2 fL (80.00-100.00); MEAN CORPUSCULAR HGB CONC 33.2 g/dl (32.0-36.0); PLATELET COUNT 166 K/uL (150-450); RED CELL DISTRIBUTION WIDTH 16.6 % (11.5-14.5)
[2024-08-17 06:21] LABS: ALBUMIN 2.4 gm/dL (3.4-5.0); CALCIUM 8.2 mg/dL (8.5-10.1); CREATININE SERUM 1.64 mg/dL (0.55-1.02); GFR 31.44; MAGNESIUM 1.6 mg/dL (1.8-2.4); PHOSPHOROUS 2.2 mg/dL (2.5-4.9); POTASSIUM 3.21 mEq/L (3.5-5.1)
[2024-08-17 06:31] LABS: HEMOGLOBIN 9.3 g/dL (12.0-15.00); MEAN CORPUSCULAR HEMOGLOBIN 28.1 pg (27.00-32.0)
[2024-08-17 08:55] VITALS: BP 115/75; O2SAT 99
[2024-08-17] MEDS ORDERED: POTASSIUM CHLORIDE IN WATER 40 MEQ/100 ML PIGGYBAG IV NR (12:45)
[2024-08-17 16:54] VITALS: BP 110/65
[2024-08-18 02:31] VITALS: BP 119/68; O2SAT 100
[2024-08-18 09:05] VITALS: BP 118/76; O2SAT 98
[2024-08-18 09:56] LABS: ALBUMIN 2.4 gm/dL (3.4-5.0); CALCIUM 8.3 mg/dL (8.5-10.1); CREATININE SERUM 1.98 mg/dL (0.55-1.02); GFR 25.3; MAGNESIUM 1.8 mg/dL (1.8-2.4); POTASSIUM 3.52 mEq/L (3.5-5.1)
[2024-08-18 10:25] LABS: PHOSPHOROUS 1.7 mg/dL (2.5-4.9)
[2024-08-18] MEDS ORDERED: POTASSIUM PHOS,M-BASIC-D-BASIC 3 MM/ML VIAL IV SCH (13:00)
[2024-08-18] MEDS ORDERED: MEROPENEM 500 MG/VIAL VIAL IV SCH (13:00)
[2024-08-18 16:00] VITALS: BP 107/70; O2SAT 97
[2024-08-18] MEDS ORDERED: 0.9 % SODIUM CHLORIDE 1,000 ML IV SCH (16:15)
[2024-08-19 01:19] VITALS: BP 113/69; O2SAT 98
[2024-08-19 09:46] VITALS: BP 117/71; O2SAT 100
[2024-08-19] MEDS ORDERED: CEFTAZIDIME/AVIBACTAM 0.94GM/100ML NSS PB IV NR (13:00)
[2024-08-19 17:06] VITALS: BP 137/70
[2024-08-19] MEDS ORDERED: CEFTAZIDIME/AVIBACTAM 0.94GM/100ML NSS PB IV SCH (21:00)
[2024-08-19] MEDS ORDERED: DESMOPRESSIN ACETATE 4 MCG/ML AMPUL IV SCH (21:00)
[2024-08-19 23:49] VITALS: BP 137/77; O2SAT 97
[2024-08-20 05:43] LABS: ALBUMIN 2.4 gm/dL (3.4-5.0); CREATININE SERUM 1.63 mg/dL (0.55-1.02); GFR 31.66; MAGNESIUM 1.7 mg/dL (1.8-2.4); PHOSPHOROUS 2.2 mg/dL (2.5-4.9); POTASSIUM 3.92 mEq/L (3.5-5.1)
[2024-08-20 05:51] LABS: HEMATOCRIT 25.6 % (36.0-45.00); MEAN CELL VOLUME 85.2 fL (80.00-100.00); PLATELET COUNT 181 K/uL (150-450); RED CELL DISTRIBUTION WIDTH 16.9 % (11.5-14.5)
[2024-08-20 05:56] LABS: HEMOGLOBIN 8.7 g/dL (12.0-15.00)
[2024-08-20 06:36] LABS: PH,URINE 6.5 (5.0-8.0); URINE APPEARANCE Cloudy; URINE BILIRRUBIN Negative (NEGATIVE); URINE BLOOD Moderate; URINE COLOR Yellow; URINE KETONE Negative (NEGATIVE); URINE LEUKOCYTE Large; URINE NITRATE Negative; URINE PROTEIN 30 (NEGATIVE); URINE UROBILINOGEN 0.2 E.U./dl
[2024-08-20 06:43] LABS: URINE BACTERIA 5857.4 uL (0.0-1933); URINE EPITHELIAL CELLS 12.3 uL (0.0-38.8)
[2024-08-20 07:19] LABS: URINE CAST 0.91 uL (0.0-1.40); URINE GLUCOSE 100 MG/DL (NEGATIVE)
[2024-08-20] MEDS ORDERED: MAGNESIUM SULFATE IN WATER 50 ML IV NR (08:00)
[2024-08-20 08:06] VITALS: BP 94/64
[2024-08-20] MEDS ORDERED: POTASSIUM PHOS,M-BASIC-D-BASIC 3 MM/ML VIAL PO ONE (10:00)
[2024-08-20 18:32] VITALS: BP 129/76; O2SAT 99
[2024-08-21 01:16] VITALS: BP 149/80; O2SAT 97
[2024-08-21 07:52] LABS: PH,URINE 6.5 (5.0-8.0); URINE APPEARANCE Cloudy; URINE BILIRRUBIN Negative (NEGATIVE); URINE BLOOD Moderate; URINE COLOR Yellow; URINE KETONE Negative (NEGATIVE); URINE LEUKOCYTE Large; URINE NITRATE Negative; URINE PROTEIN 30 (NEGATIVE); URINE UROBILINOGEN 0.2 E.U./dl
[2024-08-21 07:56] LABS: URINE BACTERIA 2749.1 uL (0.0-1933); URINE EPITHELIAL CELLS 8.6 uL (0.0-38.8); URINE RBC 55.8 uL (0.0-20.8); URINE WBC 895.3 uL (0.0-23.2)
[2024-08-21 07:58] LABS: URINE CAST 0.91 uL (0.0-1.40); URINE GLUCOSE 100 MG/DL (NEGATIVE)
[2024-08-21 08:47] LABS: HEMATOCRIT 26.4 % (36.0-45.00); MEAN CELL VOLUME 84.5 fL (80.00-100.00); MEAN CORPUSCULAR HEMOGLOBIN 28.8 pg (27.00-32.0); MEAN CORPUSCULAR HGB CONC 34.1 g/dl (32.0-36.0); PLATELET COUNT 206 K/uL (150-450); RED BLOOD COUNT 3.12 M/uL (4.00-6.00)
[2024-08-21 09:25] VITALS: BP 119/74; O2SAT 98
[2024-08-21 09:40] LABS: ALBUMIN 2.5 gm/dL (3.4-5.0); BILIRUBIN TOTAL 0.43 mg/dL (0.3-1.2); CALCIUM 8.3 mg/dL (8.5-10.1); CREATININE SERUM 1.77 mg/dL (0.55-1.02); GFR 28.79; GLOBULINA 3.7 G/DL (2.4-3.5); MAGNESIUM 2.3 mg/dL (1.8-2.4); PHOSPHOROUS 2.3 mg/dL (2.5-4.9); POTASSIUM 4.01 mEq/L (3.5-5.1); TOTAL PROTEIN 6.2 gm/dL (6.4-8.2)
[2024-08-21 18:52] VITALS: BP 128/76
[2024-08-21] MEDS ORDERED: DESMOPRESSIN ACETATE 4 MCG/ML AMPUL SUBCUTANEO SCH (21:00)
[2024-08-22 01:03] VITALS: BP 121/74
[2024-08-22 09:22] VITALS: BP 124/72
[2024-08-22] MEDS ORDERED: AMINO ACIDS/PROTEIN HYDROLYS 30 ML BLIST.PACK PO SCH (17:00)
[2024-08-22 18:06] VITALS: BP 120/72; O2SAT 100
[2024-08-22] MEDS ORDERED: DESMOPRESSIN ACETATE 4 MCG/ML AMPUL SUBCUTANEO SCH (21:00)
[2024-08-23 01:47] VITALS: BP 96/56
[2024-08-23 07:00] LABS: CALCIUM 8.2 mg/dL (8.5-10.1); CREATININE SERUM 2.65 mg/dL (0.55-1.02); GFR 18.07; POTASSIUM 3.74 mEq/L (3.5-5.1)
[2024-08-23 09:25] VITALS: BP 94/58; O2SAT 96
[2024-08-23 18:30] VITALS: BP 120/75; O2SAT 98
[2024-08-24 01:50] VITALS: BP 112/77; O2SAT 97
[2024-08-24 07:09] LABS: ACTH 38.4 pg/mL (7.2-63.3)
[2024-08-24 10:19] VITALS: BP 139/78; O2SAT 99
[2024-08-24 13:05] LABS: FOLLICLE STIMULATING HORMONE 56.3 mIU/mL (25.8-134.8)
[2024-08-24 18:28] VITALS: BP 128/70
[2024-08-25 02:28] VITALS: BP 99/60
[2024-08-25 09:58] VITALS: BP 144/72; O2SAT 99
[2024-08-25 10:05] LABS: HEMATOCRIT 26.6 % (36.0-45.00); MEAN CELL VOLUME 84.5 fL (80.00-100.00); MEAN CORPUSCULAR HEMOGLOBIN 28.7 pg (27.00-32.0); MEAN CORPUSCULAR HGB CONC 33.9 g/dl (32.0-36.0); PLATELET COUNT 193 K/uL (150-450); RED BLOOD COUNT 3.15 M/uL (4.00-6.00); RED CELL DISTRIBUTION WIDTH 17.5 % (11.5-14.5)
[2024-08-25 10:11] LABS: ALBUMIN 2.6 gm/dL (3.4-5.0); BILIRUBIN TOTAL 0.42 mg/dL (0.3-1.2); CALCIUM 8.3 mg/dL (8.5-10.1); CREATININE SERUM 2.31 mg/dL (0.55-1.02); GFR 21.17; GLOBULINA 3.6 G/DL (2.4-3.5); POTASSIUM 3.93 mEq/L (3.5-5.1); TOTAL PROTEIN 6.2 gm/dL (6.4-8.2)
[2024-08-25 10:39] LABS: MAGNESIUM 1.8 mg/dL (1.8-2.4); PHOSPHOROUS 2.4 mg/dL (2.5-4.9)
[2024-08-25] MEDS ORDERED: NAPH,MB-DB/K PH,MBDB 1 PKT PACKET PO NR (13:00)
[2024-08-25 20:25] VITALS: BP 140/80
[2024-08-26 01:52] VITALS: BP 117/77
[2024-08-26] MEDS ORDERED: NAPH,MB-DB/K PH,MBDB 1 PKT PACKET PO SCH (09:00)
[2024-08-26 09:08] VITALS: BP 122/70; O2SAT 99
[2024-08-26 19:34] VITALS: BP 120/74; O2SAT 100
[2024-08-27 01:07] VITALS: BP 97/63
[2024-08-27 08:46] LABS: ALBUMIN 2.6 gm/dL (3.4-5.0); BILIRUBIN TOTAL 0.4 mg/dL (0.3-1.2); CALCIUM 8.1 mg/dL (8.5-10.1); CREATININE SERUM 2.24 mg/dL (0.55-1.02); GFR 21.94; GLOBULINA 3.7 G/DL (2.4-3.5); MAGNESIUM 1.5 mg/dL (1.8-2.4); PHOSPHOROUS 2.1 mg/dL (2.5-4.9); POTASSIUM 3.72 mEq/L (3.5-5.1); TOTAL PROTEIN 6.3 gm/dL (6.4-8.2)
[2024-08-27 09:48] VITALS: BP 110/69; O2SAT 99
[2024-08-27] MEDS ORDERED: POTASSIUM PHOS,M-BASIC-D-BASIC 3 MM/ML VIAL IV NR (15:00)
[2024-08-27] MEDS ORDERED: MAGNESIUM SULFATE IN WATER 2 GM/50 ML PIGGYBAG IV NR (15:15)
[2024-08-27 19:20] VITALS: BP 123/76; O2SAT 100
[2024-08-28 02:15] VITALS: BP 96/61
[2024-08-28 05:11] LABS: ALBUMIN 2.5 gm/dL (3.4-5.0); BILIRUBIN TOTAL 0.46 mg/dL (0.3-1.2); CALCIUM 8.3 mg/dL (8.5-10.1); CREATININE SERUM 2.35 mg/dL (0.55-1.02); GFR 20.76; GLOBULINA 3.5 G/DL (2.4-3.5); POTASSIUM 3.62 mEq/L (3.5-5.1)
[2024-08-28 09:27] VITALS: BP 120/78
[2024-08-28] MEDS ORDERED: CITRIC ACID/SODIUM CITRATE 30 ML BLIST.PACK PO SCH (11:05)
[2024-08-28] MEDS ORDERED: CITRIC ACID/SODIUM CITRATE 30 ML BLIST.PACK PO NR (11:35)
[2024-08-28 17:47] VITALS: BP 106/71
[2024-08-28] MEDS ORDERED: DESMOPRESSIN ACETATE 4 MCG/ML AMPUL SUBCUTANEO SCH (21:00)
[2024-08-29 02:01] VITALS: BP 123/73
[2024-08-29] MEDS ORDERED: DESMOPRESSIN ACETATE 4 MCG/ML AMPUL SUBCUTANEO SCH (09:00)
[2024-08-29 09:26] VITALS: BP 144/83; O2SAT 97
[2024-08-29] MEDS ORDERED: HYDROCHLOROTHIAZIDE 25 MG TABLET PO SCH (17:00)
[2024-08-29 19:57] VITALS: BP 128/76; O2SAT 97
[2024-08-30 02:25] VITALS: BP 110/66; O2SAT 97
[2024-08-30 06:45] LABS: ALBUMIN 2.6 gm/dL (3.4-5.0); BILIRUBIN TOTAL 0.43 mg/dL (0.3-1.2); CALCIUM 8.1 mg/dL (8.5-10.1); CREATININE SERUM 2.22 mg/dL (0.55-1.02); GFR 22.17; GLOBULINA 3.5 G/DL (2.4-3.5); POTASSIUM 3.54 mEq/L (3.5-5.1); TOTAL PROTEIN 6.1 gm/dL (6.4-8.2)
[2024-08-30 10:26] VITALS: BP 119/72; O2SAT 98
[2024-08-30] MEDS ORDERED: HYDROCHLOROTHIAZIDE 25 MG TABLET PO SCH (17:00)
[2024-08-30 19:48] VITALS: BP 120/74; O2SAT 98
[2024-08-30] MEDS ORDERED: DESMOPRESSIN ACETATE 4 MCG/ML AMPUL SUBCUTANEO SCH (21:00)
[2024-08-31 03:52] VITALS: BP 105/60; O2SAT 99
[2024-08-31 03:54] VITALS: BP 112/64; O2SAT 98
[2024-08-31 08:53] VITALS: BP 119/72; O2SAT 99
[2024-08-31] MEDS ORDERED: HYDROCHLOROTHIAZIDE 25 MG TABLET PO SCH (09:00)
[2024-08-31 09:03] LABS: ALBUMIN 2.5 gm/dL (3.4-5.0); BILIRUBIN TOTAL 0.45 mg/dL (0.3-1.2); CREATININE SERUM 2.37 mg/dL (0.55-1.02); GFR 20.56; GLOBULINA 3.2 G/DL (2.4-3.5); POTASSIUM 3.45 mEq/L (3.5-5.1); TOTAL PROTEIN 5.7 gm/dL (6.4-8.2)
[2024-08-31] MEDS ORDERED: POTASSIUM BICARBONATE/CIT AC 25 MEQ TABLET.EFF PO SCH (13:00)
[2024-08-31] MEDS ORDERED: POTASSIUM CHLORIDE 20MEQ/100ML H2O PB IV NR (15:30)
[2024-08-31 18:17] VITALS: BP 126/77; O2SAT 97
[2024-09-01 01:44] VITALS: BP 113/74; O2SAT 100
[2024-09-01 11:26] VITALS: BP 109/69; O2SAT 98
[2024-09-01 16:34] LABS: URINE APPEARANCE CLEAR; URINE BILIRRUBIN NEGATIVE (NEGATIVE); URINE COLOR YELLOW; URINE GLUCOSE 100 MG/DL (NEGATIVE); URINE KETONE NEGATIVE (NEGATIVE)
[2024-09-01 16:35] LABS: URINE BLOOD TRACE; URINE LEUKOCYTE POSITIVE; URINE NITRATE NEGATIVE; URINE UROBILINOGEN 0.2 E.U./dl
[2024-09-01 16:36] LABS: URINE PROTEIN 30 (NEGATIVE); URINE RBC 0-3 /HPF
[2024-09-01 16:37] LABS: URINE BACTERIA MODERATE
[2024-09-01 17:50] VITALS: BP 128/77; O2SAT 100
[2024-09-02 02:04] VITALS: BP 110/64; O2SAT 97
[2024-09-02 08:31] VITALS: BP 100/63
[2024-09-02 19:02] VITALS: BP 133/76
[2024-09-02] MEDS ORDERED: DESMOPRESSIN ACETATE 4 MCG/ML AMPUL SUBCUTANEO SCH (21:00)
[2024-09-03 00:23] VITALS: BP 114/67; O2SAT 98
[2024-09-03 08:00] VITALS: BP 91/60
[2024-09-03 18:17] VITALS: BP 124/76
[2024-09-04 00:20] VITALS: BP 104/67; O2SAT 98
[2024-09-04 09:24] VITALS: BP 105/68; O2SAT 96
[2024-09-04 18:36] VITALS: BP 125/71
[2024-09-04] MEDS ORDERED: TRAMADOL HCL 50 MG TABLET PO PRN (20:45)
[2024-09-05 01:46] VITALS: BP 108/66; O2SAT 99
[2024-09-05 06:19] LABS: HEMATOCRIT 26.2 % (36.0-45.00); MEAN CELL VOLUME 86.9 fL (80.00-100.00); MEAN CORPUSCULAR HGB CONC 33.7 g/dl (32.0-36.0); PLATELET COUNT 162 K/uL (150-450); RED BLOOD COUNT 3.01 M/uL (4.00-6.00); RED CELL DISTRIBUTION WIDTH 18.3 % (11.5-14.5)
[2024-09-05 06:34] LABS: HEMOGLOBIN 8.8 g/dL (12.0-15.00); MEAN CORPUSCULAR HEMOGLOBIN 29.2 pg (27.00-32.0)
[2024-09-05 06:47] LABS: ALBUMIN 2.8 gm/dL (3.4-5.0); BILIRUBIN TOTAL 0.67 mg/dL (0.3-1.2); CALCIUM 8.3 mg/dL (8.5-10.1); CREATININE SERUM 2.72 mg/dL (0.55-1.02); GFR 17.54; GLOBULINA 3.7 G/DL (2.4-3.5); MAGNESIUM 1.9 mg/dL (1.8-2.4); POTASSIUM 4.19 mEq/L (3.5-5.1); TOTAL PROTEIN 6.5 gm/dL (6.4-8.2)
[2024-09-05 08:52] VITALS: BP 120/68; O2SAT 99
[2024-09-05 17:44] VITALS: BP 137/77
[2024-09-05] MEDS ORDERED: RINGERS SOLUTION,LACTATED 1,000 ML IV SCH (20:00)
[2024-09-06 00:36] VITALS: BP 106/66; O2SAT 98
[2024-09-06 08:43] VITALS: BP 132/72; O2SAT 100
[2024-09-06 16:33] VITALS: BP 103/68
[2024-09-06 23:33] LABS: URINE APPEARANCE Cloudy; URINE BACTERIA 5414.2 uL (0.0-1933); URINE BILIRRUBIN Negative (NEGATIVE); URINE BLOOD Large; URINE CAST 0.45 uL (0.0-1.40); URINE COLOR Yellow; URINE EPITHELIAL CELLS 8.9 uL (0.0-38.8); URINE GLUCOSE 100 MG/DL (NEGATIVE); URINE KETONE Negative (NEGATIVE); URINE LEUKOCYTE Large; URINE NITRATE Positive; URINE PROTEIN 100 (NEGATIVE); URINE RBC 519.2 uL (0.0-20.8); URINE UROBILINOGEN 0.2 E.U./dl; URINE WBC 2713.6 uL (0.0-23.2)
[2024-09-07 02:33] VITALS: BP 109/62; O2SAT 97
[2024-09-07 09:02] VITALS: BP 119/67; O2SAT 100
[2024-09-07 09:33] VITALS: BP 143/78; O2SAT 97
[2024-09-07 17:18] VITALS: BP 144/76; O2SAT 99
[2024-09-08 02:23] VITALS: BP 122/74; O2SAT 98
[2024-09-08 09:34] VITALS: BP 118/77; O2SAT 98
[2024-09-08 16:41] VITALS: BP 146/82; O2SAT 98
[2024-09-08] MEDS ORDERED: 0.9 % SODIUM CHLORIDE 1,000 ML IV SCH (21:30)
[2024-09-09 02:37] VITALS: BP 127/80; O2SAT 97
[2024-09-09 06:40] LABS: HEMATOCRIT 24.4 % (36.0-45.00); MEAN CELL VOLUME 86.9 fL (80.00-100.00); PLATELET COUNT 150 K/uL (150-450); RED CELL DISTRIBUTION WIDTH 17.4 % (11.5-14.5)
[2024-09-09 06:48] LABS: MEAN CORPUSCULAR HEMOGLOBIN 29.6 pg (27.00-32.0)
[2024-09-09 06:49] LABS: HEMOGLOBIN 8.3 g/dL (12.0-15.00)
[2024-09-09 07:24] LABS: ALBUMIN 2.5 gm/dL (3.4-5.0); BILIRUBIN TOTAL 0.55 mg/dL (0.3-1.2); CALCIUM 8.2 mg/dL (8.5-10.1); CREATININE SERUM 2.64 mg/dL (0.55-1.02); GFR 18.15; GLOBULINA 3.2 G/DL (2.4-3.5); MAGNESIUM 1.7 mg/dL (1.8-2.4); PHOSPHOROUS 2.6 mg/dL (2.5-4.9); POTASSIUM 3.5 mEq/L (3.5-5.1); TOTAL PROTEIN 5.7 gm/dL (6.4-8.2)
[2024-09-09] MEDS ORDERED: MAGNESIUM SULFATE IN WATER 50 ML IV NR (07:45)
[2024-09-09 09:01] VITALS: BP 128/77
[2024-09-09] MEDS ORDERED: CEFTAZIDIME/AVIBACTAM 0.94GM/100ML NSS PB IV SCH (17:00)
[2024-09-09 17:34] VITALS: BP 138/67
[2024-09-10 00:27] VITALS: BP 143/79; O2SAT 98
[2024-09-10 08:31] VITALS: BP 160/80
[2024-09-10 18:47] VITALS: BP 149/78; O2SAT 100
[2024-09-11 00:20] VITALS: BP 155/84
[2024-09-11 04:25] LABS: HEMATOCRIT 27.6 % (36.0-45.00); MEAN CELL VOLUME 85.5 fL (80.00-100.00); PLATELET COUNT 159 K/uL (150-450); RED BLOOD COUNT 3.22 M/uL (4.00-6.00); RED CELL DISTRIBUTION WIDTH 16.3 % (11.5-14.5)
[2024-09-11 04:31] LABS: HEMOGLOBIN 9.6 g/dL (12.0-15.00); MEAN CORPUSCULAR HEMOGLOBIN 29.8 pg (27.00-32.0)
[2024-09-11 04:33] LABS: CALCIUM 8.2 mg/dL (8.5-10.1); CREATININE SERUM 2.6 mg/dL (0.55-1.02); GFR 18.47; MAGNESIUM 1.8 mg/dL (1.8-2.4); PHOSPHOROUS 2.4 mg/dL (2.5-4.9); POTASSIUM 3.48 mEq/L (3.5-5.1)
[2024-09-11 09:11] VITALS: BP 158/82
[2024-09-11] MEDS ORDERED: POTASSIUM PHOS,M-BASIC-D-BASIC 15 MM in 0.9 % SODIUM CHLORIDE 250 ML IV ONE (11:00)
[2024-09-11 18:44] VITALS: BP 144/78; O2SAT 98
[2024-09-12 00:25] VITALS: BP 117/68; O2SAT 99
[2024-09-12 00:30] LABS: ob NEGATIVE (NEGATIVE)
[2024-09-12 09:29] VITALS: BP 120/70; O2SAT 100
[2024-09-12 19:00] VITALS: BP 124/76; O2SAT 100
[2024-09-13 01:13] VITALS: BP 131/76; O2SAT 99
[2024-09-13 09:41] VITALS: BP 138/76; O2SAT 99
[2024-09-13 17:46] VITALS: BP 113/72; O2SAT 97
[2024-09-14 02:34] VITALS: BP 141/85; O2SAT 99
[2024-09-14 08:32] LABS: ALBUMIN 2.6 gm/dL (3.4-5.0); BILIRUBIN TOTAL 0.64 mg/dL (0.3-1.2); CALCIUM 7.8 mg/dL (8.5-10.1); CREATININE SERUM 2.42 mg/dL (0.55-1.02); GFR 20.07; GLOBULINA 3.3 G/DL (2.4-3.5); MAGNESIUM 1.5 mg/dL (1.8-2.4); POTASSIUM 3.81 mEq/L (3.5-5.1); TOTAL PROTEIN 5.9 gm/dL (6.4-8.2)
[2024-09-14 08:41] VITALS: BP 133/84; O2SAT 99
[2024-09-14 09:44] LABS: HEMATOCRIT 29.1 % (36.0-45.00); HEMOGLOBIN 9.9 g/dL (12.0-15.00); MEAN CELL VOLUME 86.4 fL (80.00-100.00); MEAN CORPUSCULAR HEMOGLOBIN 29.4 pg (27.00-32.0); MEAN CORPUSCULAR HGB CONC 34.1 g/dl (32.0-36.0); PLATELET COUNT 161 K/uL (150-450); RED BLOOD COUNT 3.37 M/uL (4.00-6.00); RED CELL DISTRIBUTION WIDTH 16.5 % (11.5-14.5)
[2024-09-14] MEDS ORDERED: MAGNESIUM SULFATE IN WATER 50 ML IV NR (16:00)
[2024-09-14 18:10] VITALS: BP 149/83
[2024-09-15 02:50] VITALS: BP 124/78; O2SAT 100
[2024-09-15] MEDS ORDERED: CEFTAZIDIME/AVIBACTAM 0.94GM/100ML NSS PB IV NR (10:00)
[2024-09-15 17:25] VITALS: BP 175/90
[2024-09-16 02:15] VITALS: BP 124/76; O2SAT 97
[2024-09-16 07:17] LABS: ALBUMIN 2.6 gm/dL (3.4-5.0); CALCIUM 8.1 mg/dL (8.5-10.1); CREATININE SERUM 2.22 mg/dL (0.55-1.02); GFR 22.17; POTASSIUM 3.62 mEq/L (3.5-5.1)
[2024-09-16] MEDS ORDERED: POTASSIUM PHOS,M-BASIC-D-BASIC 3 MM/ML VIAL IV NR (08:00)
[2024-09-16 09:17] VITALS: BP 140/83; O2SAT 99
[2024-09-16 18:21] VITALS: BP 148/86
[2024-09-17 00:47] VITALS: BP 135/76; O2SAT 97
[2024-09-17 10:00] VITALS: BP 147/81; O2SAT 97
[2024-09-17 18:29] LABS: URINE APPEARANCE Cloudy; URINE BILIRRUBIN Negative (NEGATIVE); URINE BLOOD Large; URINE COLOR Red; URINE KETONE Negative (NEGATIVE); URINE LEUKOCYTE Large; URINE NITRATE Negative; URINE UROBILINOGEN 0.2 E.U./dl
[2024-09-17 18:31] LABS: URINE BACTERIA 496.4 uL (0.0-1933); URINE EPITHELIAL CELLS 48.8 uL (0.0-38.8); URINE WBC 1147.4 uL (0.0-23.2)
[2024-09-17 18:34] VITALS: BP 155/74; O2SAT 99
[2024-09-17 18:55] LABS: URINE CAST 0.45 uL (0.0-1.40); URINE GLUCOSE 100 MG/DL (NEGATIVE); URINE PROTEIN 100 (NEGATIVE); URINE RBC > 10558.9 uL (0.0-20.8)
[2024-09-18 00:44] VITALS: BP 156/84
[2024-09-18 10:13] VITALS: BP 171/90; O2SAT 97
[2024-09-18 18:24] VITALS: BP 144/77; O2SAT 98
[2024-09-19 01:06] VITALS: BP 153/84; O2SAT 99
[2024-09-19 08:43] VITALS: BP 143/87
[2024-09-19 19:11] VITALS: BP 120/80; O2SAT 99
[2024-09-20 01:43] VITALS: BP 132/74; O2SAT 97
[2024-09-20 09:12] LABS: ALBUMIN 2.7 gm/dL (3.4-5.0); CALCIUM 8.4 mg/dL (8.5-10.1); CREATININE SERUM 2.14 mg/dL (0.55-1.02); GFR 23.13; PHOSPHOROUS 2.7 mg/dL (2.5-4.9); POTASSIUM 3.33 mEq/L (3.5-5.1)
[2024-09-20 09:35] VITALS: BP 124/80; O2SAT 97
[2024-09-20 14:57] LABS: HEMATOCRIT 30.8 % (36.0-45.00); HEMOGLOBIN 10.2 g/dL (12.0-15.00); MEAN CELL VOLUME 87.7 fL (80.00-100.00); MEAN CORPUSCULAR HEMOGLOBIN 28.9 pg (27.00-32.0); PLATELET COUNT 191 K/uL (150-450); RED BLOOD COUNT 3.51 M/uL (4.00-6.00); RED CELL DISTRIBUTION WIDTH 15.8 % (11.5-14.5)
[2024-09-20 15:07] LABS: INR 1.03; PARTIAL THROMBOPLASTIN TIME 29.1 SECONDS (22.0-34.0); PROTHROMBIN TIME 11.2 SECONDS (9.0-11.5)
[2024-09-20 15:31] LABS: ALBUMIN 2.8 gm/dL (3.4-5.0); BILIRUBIN TOTAL 0.71 mg/dL (0.3-1.2); CALCIUM 8.6 mg/dL (8.5-10.1); CREATININE SERUM 2.18 mg/dL (0.55-1.02); GFR 22.64; GLOBULINA 3.9 G/DL (2.4-3.5); MAGNESIUM 1.8 mg/dL (1.8-2.4); POTASSIUM 3.79 mEq/L (3.5-5.1); TOTAL PROTEIN 6.7 gm/dL (6.4-8.2)
[2024-09-20 16:23] LABS: PH,URINE 7.5 (5.0-8.0); URINE APPEARANCE Cloudy; URINE BACTERIA 607.2 uL (0.0-1933); URINE BILIRRUBIN Negative (NEGATIVE); URINE BLOOD Large; URINE COLOR Yellow; URINE KETONE Negative (NEGATIVE); URINE LEUKOCYTE Large; URINE NITRATE Negative; URINE PROTEIN 30 (NEGATIVE); URINE RBC 132.3 uL (0.0-20.8); URINE UROBILINOGEN 0.2 E.U./dl; URINE WBC 2078.4 uL (0.0-23.2)
[2024-09-20 16:52] LABS: URINE CAST 1.37 uL (0.0-1.40); URINE GLUCOSE 100 MG/DL (NEGATIVE); URINE MUCUS SCANT; URINE YEAST FEW /hpf
[2024-09-20 18:30] VITALS: BP 153/83; O2SAT 99
[2024-09-21 02:13] VITALS: BP 125/77
[2024-09-21 09:18] VITALS: BP 135/80; O2SAT 96
[2024-09-21 17:51] VITALS: BP 145/82; O2SAT 97
[2024-09-22 00:13] VITALS: BP 125/73
[2024-09-22 08:00] VITALS: BP 150/80
[2024-09-22 18:04] VITALS: BP 148/84; O2SAT 97
[2024-09-23 00:34] VITALS: BP 146/82
[2024-09-23 09:08] LABS: HEMATOCRIT 28.3 % (36.0-45.00); HEMOGLOBIN 9.9 g/dL (12.0-15.00); MEAN CELL VOLUME 86.7 fL (80.00-100.00); MEAN CORPUSCULAR HEMOGLOBIN 30.4 pg (27.00-32.0); PLATELET COUNT 153 K/uL (150-450); RED BLOOD COUNT 3.26 M/uL (4.00-6.00); RED CELL DISTRIBUTION WIDTH 15.9 % (11.5-14.5)
[2024-09-23 10:05] LABS: ALBUMIN 2.8 gm/dL (3.4-5.0); BILIRUBIN TOTAL 1.07 mg/dL (0.3-1.2); CALCIUM 9.3 mg/dL (8.5-10.1); CREATININE SERUM 2.18 mg/dL (0.55-1.02); GFR 22.64; GLOBULINA 3.8 G/DL (2.4-3.5); MAGNESIUM 1.7 mg/dL (1.8-2.4); PHOSPHOROUS 2.4 mg/dL (2.5-4.9); POTASSIUM 3.57 mEq/L (3.5-5.1); TOTAL PROTEIN 6.6 gm/dL (6.4-8.2)
[2024-09-23 10:34] VITALS: BP 121/69; O2SAT 99
[2024-09-23 17:53] VITALS: BP 155/81
[2024-09-24 02:52] VITALS: BP 146/84; O2SAT 98
[2024-09-24] MEDS ORDERED: HYDROCHLOROTHIAZIDE 12.5 MG CAPSULE PO SCH (07:00)
[2024-09-24 08:20] VITALS: BP 127/80; O2SAT 98
[2024-09-24] MEDS ORDERED: MAGNESIUM SULFATE IN WATER 50 ML IV NR (08:45)
[2024-09-24 19:31] VITALS: BP 147/79
[2024-09-25 01:59] VITALS: BP 152/80; O2SAT 96
[2024-09-25 05:10] LABS: HEMATOCRIT 28.4 % (36.0-45.00); MEAN CELL VOLUME 87.4 fL (80.00-100.00); MEAN CORPUSCULAR HGB CONC 33.9 g/dl (32.0-36.0); PLATELET COUNT 161 K/uL (150-450); RED BLOOD COUNT 3.25 M/uL (4.00-6.00)
[2024-09-25 05:14] LABS: HEMOGLOBIN 9.6 g/dL (12.0-15.00); MEAN CORPUSCULAR HEMOGLOBIN 29.5 pg (27.00-32.0)
[2024-09-25 05:34] LABS: CALCIUM 8.3 mg/dL (8.5-10.1); CREATININE SERUM 2.25 mg/dL (0.55-1.02); GFR 21.83; MAGNESIUM 2.4 mg/dL (1.8-2.4); POTASSIUM 3.79 mEq/L (3.5-5.1)
[2024-09-25 09:20] VITALS: BP 149/89; O2SAT 100
[2024-09-25] MEDS ORDERED: DESMOPRESSIN ACETATE 4 MCG/ML AMPUL SUBCUTANEO STA (10:20)
[2024-09-25] MEDS ORDERED: MORPHINE SULFATE 2 MG/ML CARTRIDGE IV ONE (18:25)
[2024-09-25] MEDS ORDERED: DESMOPRESSIN ACETATE 4 MCG/ML AMPUL SUBCUTANEO SCH (21:00)
[2024-09-25 21:23] VITALS: BP 175/90
[2024-09-26 02:44] VITALS: BP 130/77; O2SAT 98
[2024-09-26 08:18] VITALS: BP 109/71; O2SAT 96
[2024-09-26 19:34] VITALS: BP 113/75; O2SAT 98
[2024-09-27] VITALS: BP 131/68; O2SAT 100
[2024-09-27 08:34] VITALS: BP 135/84; O2SAT 99
[2024-09-27 18:10] VITALS: BP 150/83; O2SAT 97
[2024-09-28 01:49] VITALS: BP 147/80; O2SAT 97
[2024-09-28 07:29] LABS: HEMATOCRIT 27.9 % (36.0-45.00); HEMOGLOBIN 9.7 g/dL (12.0-15.00); MEAN CELL VOLUME 86.8 fL (80.00-100.00); MEAN CORPUSCULAR HEMOGLOBIN 30.3 pg (27.00-32.0); MEAN CORPUSCULAR HGB CONC 34.9 g/dl (32.0-36.0); PLATELET COUNT 138 K/uL (150-450); RED BLOOD COUNT 3.21 M/uL (4.00-6.00); RED CELL DISTRIBUTION WIDTH 16.1 % (11.5-14.5)
[2024-09-28 07:37] LABS: ALBUMIN 3.1 gm/dL (3.4-5.0); BILIRUBIN TOTAL 0.93 mg/dL (0.3-1.2); CALCIUM 8.3 mg/dL (8.5-10.1); CREATININE SERUM 2.36 mg/dL (0.55-1.02); GFR 20.66; GLOBULINA 3.8 G/DL (2.4-3.5); POTASSIUM 3.4 mEq/L (3.5-5.1); TOTAL PROTEIN 6.9 gm/dL (6.4-8.2)
[2024-09-28 07:47] LABS: PH,URINE 7.5 (5.0-8.0); URINE APPEARANCE Clear; URINE BILIRRUBIN Negative (NEGATIVE); URINE BLOOD Small; URINE COLOR Yellow; URINE KETONE Negative (NEGATIVE); URINE LEUKOCYTE Large; URINE NITRATE Negative; URINE UROBILINOGEN 0.2 E.U./dl
[2024-09-28 07:50] LABS: URINE BACTERIA 236.7 uL (0.0-1933); URINE RBC 63.8 uL (0.0-20.8); URINE WBC 706.9 uL (0.0-23.2)
[2024-09-28 07:57] LABS: URINE CAST 0.45 uL (0.0-1.40); URINE EPITHELIAL CELLS 0.1 uL (0.0-38.8); URINE GLUCOSE 100 MG/DL (NEGATIVE); URINE PROTEIN 100 (NEGATIVE)
[2024-09-28 09:43] VITALS: BP 127/73; O2SAT 98
[2024-09-28 17:07] VITALS: BP 158/82; O2SAT 97
[2024-09-29 01:07] VITALS: BP 120/69; O2SAT 99
[2024-09-29 10:25] VITALS: BP 153/88; O2SAT 97
[2024-09-29 17:32] VITALS: BP 160/74; O2SAT 100
[2024-09-30 01:23] VITALS: BP 130/75; O2SAT 98
[2024-09-30 08:59] VITALS: BP 114/76; O2SAT 97
[2024-09-30] MEDS ORDERED: MIDAZOLAM HCL 2 MG/2 ML VIAL IV PUSH ONE (17:00)
[2024-09-30] MEDS ORDERED: fentaNYL CITRATE 50 MCG/ML AMPUL IV PUSH ONE (17:00)
[2024-09-30 18:32] VITALS: BP 141/84
[2024-09-30] MEDS ORDERED: MORPHINE SULFATE 2 MG/ML SYRINGE IV PRN (23:00)
[2024-09-30 23:28] LABS: URINE APPEARANCE Clear; URINE BILIRRUBIN Negative (NEGATIVE); URINE BLOOD Small; URINE COLOR Yellow; URINE KETONE Negative (NEGATIVE); URINE LEUKOCYTE Large; URINE NITRATE Negative; URINE UROBILINOGEN 0.2 E.U./dl
[2024-09-30 23:35] LABS: URINE BACTERIA 288.5 uL (0.0-1933); URINE EPITHELIAL CELLS 3.8 uL (0.0-38.8); URINE WBC 1646.7 uL (0.0-23.2)
[2024-10-01 00:21] LABS: URINE CAST 0.76 uL (0.0-1.40); URINE GLUCOSE 100 MG/DL (NEGATIVE); URINE PROTEIN 100 (NEGATIVE)
[2024-10-01 01:32] VITALS: BP 140/76; O2SAT 97
[2024-10-01 09:20] VITALS: BP 153/82
[2024-10-01 09:52] LABS: PH,URINE 7.5; URINE BILIRRUBIN SMALL (NEGATIVE); URINE BLOOD LARGE; URINE KETONE NEGATIVE (NEGATIVE); URINE LEUKOCYTE LARGE; URINE NITRATE POSITIVE; URINE UROBILINOGEN 0.2 E.U./dl
[2024-10-01 10:24] LABS: URINE APPEARANCE BLOODY; URINE COLOR RED; URINE GLUCOSE 250 MG/DL (NEGATIVE); URINE PROTEIN 100 (NEGATIVE)
[2024-10-01 10:25] LABS: URINE RBC LOADED /HPF; URINE WBC 41-50 /hpf
[2024-10-01 10:26] LABS: URINE BACTERIA MANY; URINE CRYSTALS FEW /HPF; URINE EPITHELIAL CELLS 0-4 /HPF
[2024-10-01 17:50] VITALS: BP 122/77
[2024-10-02 02:49] VITALS: BP 143/79; O2SAT 97
[2024-10-02 07:24] LABS: HEMOGLOBIN 9.5 g/dL (12.0-15.00); MEAN CELL VOLUME 86.4 fL (80.00-100.00); MEAN CORPUSCULAR HEMOGLOBIN 30.3 pg (27.00-32.0); MEAN CORPUSCULAR HGB CONC 35.1 g/dl (32.0-36.0); PLATELET COUNT 139 K/uL (150-450); RED BLOOD COUNT 3.13 M/uL (4.00-6.00); RED CELL DISTRIBUTION WIDTH 15.6 % (11.5-14.5)
[2024-10-02 07:55] LABS: CALCIUM 8.4 mg/dL (8.5-10.1); CREATININE SERUM 2.29 mg/dL (0.55-1.02); GFR 21.39; MAGNESIUM 1.6 mg/dL (1.8-2.4); POTASSIUM 3.3 mEq/L (3.5-5.1)
[2024-10-02 09:09] VITALS: BP 148/84; O2SAT 99
[2024-10-02] MEDS ORDERED: POTASSIUM BICARBONATE/CIT AC 25 MEQ TABLET.EFF PO SCH (13:00)
[2024-10-02] MEDS ORDERED: ONDANSETRON HCL 2 MG/ML VIAL IV PRN (14:15)
[2024-10-02] MEDS ORDERED: FLUCONAZOLE IN NACL,ISO-OSM 200 MG/100 ML PIGGYBAG IV SCH (17:00)
[2024-10-02 17:56] VITALS: BP 158/79; O2SAT 97
[2024-10-02] MEDS ORDERED: FAMOTIDINE/PF 20 MG/2 ML VIAL IV PUSH SCH (21:00)
[2024-10-03 02:58] VITALS: BP 154/80; O2SAT 95
[2024-10-03 08:52] VITALS: BP 150/87; O2SAT 93
[2024-10-03] MEDS ORDERED: FLUCONAZOLE IN NACL,ISO-OSM 2 MG/ML ML IV SCH (17:00)
[2024-10-03 18:12] VITALS: BP 122/80; O2SAT 98
[2024-10-04 03:14] VITALS: BP 155/81; O2SAT 100
[2024-10-04 08:51] VITALS: BP 150/78; O2SAT 96
[2024-10-04 16:53] VITALS: BP 160/89; O2SAT 97
[2024-10-05 02:41] VITALS: BP 157/90; O2SAT 99
[2024-10-05 10:00] VITALS: BP 132/77; O2SAT 99
[2024-10-05 19:32] VITALS: BP 140/77
[2024-10-06 01:47] VITALS: BP 131/69; O2SAT 98
[2024-10-06 07:47] LABS: ALBUMIN 2.9 gm/dL (3.4-5.0); BILIRUBIN TOTAL 0.98 mg/dL (0.3-1.2); CALCIUM 8.1 mg/dL (8.5-10.1); CREATININE SERUM 2.48 mg/dL (0.55-1.02); GFR 19.51; GLOBULINA 3.6 G/DL (2.4-3.5); MAGNESIUM 1.5 mg/dL (1.8-2.4); POTASSIUM 3.42 mEq/L (3.5-5.1); TOTAL PROTEIN 6.5 gm/dL (6.4-8.2)
[2024-10-06 08:00] VITALS: BP 138/75; O2SAT 98
[2024-10-06 08:18] LABS: HEMATOCRIT 26.6 % (36.0-45.00); HEMOGLOBIN 9.4 g/dL (12.0-15.00); MEAN CELL VOLUME 85.5 fL (80.00-100.00); MEAN CORPUSCULAR HEMOGLOBIN 30.2 pg (27.00-32.0); MEAN CORPUSCULAR HGB CONC 35.4 g/dl (32.0-36.0); RED BLOOD COUNT 3.11 M/uL (4.00-6.00); RED CELL DISTRIBUTION WIDTH 15.4 % (11.5-14.5)
[2024-10-06 08:41] LABS: PLATELET COUNT 117 K/uL (150-450)
[2024-10-06 08:43] LABS: PHOSPHOROUS 1.2 mg/dL (2.5-4.9)
[2024-10-06] MEDS ORDERED: MAGNESIUM SULFATE IN WATER 4 GM/100 ML PIGGYBACK IV STA (11:27)
[2024-10-06] MEDS ORDERED: POTASSIUM PHOS,M-BASIC-D-BASIC 3 MM/ML VIAL IV SCH (14:00)
[2024-10-06 21:55] VITALS: BP 180/80
[2024-10-07 01:13] VITALS: BP 160/84; O2SAT 98
[2024-10-07 09:15] VITALS: BP 149/77; O2SAT 100
[2024-10-07 18:20] VITALS: BP 140/70
[2024-10-08 01:50] VITALS: BP 128/82; O2SAT 98
[2024-10-08 08:01] VITALS: BP 158/81; O2SAT 98
[2024-10-08 12:07] LABS: URINE BACTERIA 329.2 uL (0.0-1933); URINE EPITHELIAL CELLS 8.7 uL (0.0-38.8); URINE RBC 3318.7 uL (0.0-20.8); URINE WBC 384.2 uL (0.0-23.2)
[2024-10-08 12:12] LABS: URINE CAST 0.58 uL (0.0-1.40); URINE COLOR YELLOW
[2024-10-08 12:13] LABS: URINE APPEARANCE CLOUDY; URINE BILIRRUBIN NEGATIVE (NEGATIVE); URINE BLOOD MODERATE; URINE GLUCOSE 250 MG/DL (NEGATIVE); URINE KETONE NEGATIVE (NEGATIVE); URINE LEUKOCYTE SMALL; URINE NITRATE NEGATIVE; URINE PROTEIN 100 (NEGATIVE); URINE UROBILINOGEN 0.2 E.U./dl
[2024-10-08 17:50] VITALS: BP 143/91
[2024-10-09 02:44] VITALS: BP 120/79; O2SAT 95
[2024-10-09 08:11] VITALS: BP 123/81; O2SAT 97
[2024-10-09 20:23] VITALS: BP 130/60
[2024-10-10 02:48] VITALS: BP 104/72; O2SAT 96
[2024-10-10 06:41] LABS: HEMATOCRIT 28.5 % (36.0-45.00); MEAN CELL VOLUME 85.5 fL (80.00-100.00); MEAN CORPUSCULAR HEMOGLOBIN 30.2 pg (27.00-32.0); MEAN CORPUSCULAR HGB CONC 35.3 g/dl (32.0-36.0); PLATELET COUNT 151 K/uL (150-450); RED BLOOD COUNT 3.33 M/uL (4.00-6.00); RED CELL DISTRIBUTION WIDTH 14.9 % (11.5-14.5)
[2024-10-10 06:59] LABS: ALBUMIN 3.2 gm/dL (3.4-5.0); BILIRUBIN TOTAL 0.87 mg/dL (0.3-1.2); CALCIUM 8.4 mg/dL (8.5-10.1); CREATININE SERUM 2.29 mg/dL (0.55-1.02); GFR 21.39; GLOBULINA 3.9 G/DL (2.4-3.5); MAGNESIUM 1.8 mg/dL (1.8-2.4); POTASSIUM 3.89 mEq/L (3.5-5.1); TOTAL PROTEIN 7.1 gm/dL (6.4-8.2)
[2024-10-10 10:47] VITALS: BP 152/80; O2SAT 96
[2024-10-10 17:51] VITALS: BP 102/65; O2SAT 98
[2024-10-11 02:43] VITALS: BP 128/86; O2SAT 98
[2024-10-11 08:22] VITALS: BP 119/74; O2SAT 99
[2024-10-11] MEDS ORDERED: FLUTICASONE PROPIONATE 50 MCG SPRAY NASAL SCH (17:00)
[2024-10-11 17:46] VITALS: BP 118/76
[2024-10-11 18:14] LABS: INR 0.98; PARTIAL THROMBOPLASTIN TIME 34.2 SECONDS (22.0-34.0); PROTHROMBIN TIME 10.7 SECONDS (9.0-11.5)
[2024-10-12 01:50] VITALS: BP 104/74; O2SAT 97
[2024-10-12 09:52] VITALS: BP 102/67; O2SAT 98
[2024-10-12 17:22] VITALS: BP 108/66; O2SAT 99
[2024-10-13 03:26] VITALS: BP 140/82; O2SAT 100
[2024-10-13 07:51] LABS: HEMATOCRIT 33.3 % (36.0-45.00); HEMOGLOBIN 11.1 g/dL (12.0-15.00); MEAN CELL VOLUME 88.2 fL (80.00-100.00); MEAN CORPUSCULAR HEMOGLOBIN 29.4 pg (27.00-32.0); MEAN CORPUSCULAR HGB CONC 33.3 g/dl (32.0-36.0); PLATELET COUNT 241 K/uL (150-450); RED BLOOD COUNT 3.78 M/uL (4.00-6.00); RED CELL DISTRIBUTION WIDTH 15.6 % (11.5-14.5)
[2024-10-13 10:41] VITALS: BP 110/62; O2SAT 99
[2024-10-13 18:02] VITALS: BP 132/78
[2024-10-14 01:55] VITALS: BP 133/80; O2SAT 100
[2024-10-14 07:58] LABS: ALBUMIN 3.2 gm/dL (3.4-5.0); BILIRUBIN TOTAL 0.53 mg/dL (0.3-1.2); CALCIUM 8.4 mg/dL (8.5-10.1); CREATININE SERUM 2.92 mg/dL (0.55-1.02); GFR 16.16; GLOBULINA 3.7 G/DL (2.4-3.5); POTASSIUM 4.49 mEq/L (3.5-5.1); TOTAL PROTEIN 6.9 gm/dL (6.4-8.2)
[2024-10-14 08:56] VITALS: BP 119/73; O2SAT 97
[2024-10-14 17:20] VITALS: BP 150/89
[2024-10-15 01:09] VITALS: BP 120/88; O2SAT 98
[2024-10-15 08:09] VITALS: BP 90/60; O2SAT 97
[2024-10-15] MEDS ORDERED: CHLORHEXIDINE GLUCONATE 120 ML BOTTLE TOP ONE (16:09)
[2024-10-15] MEDS ORDERED: IOVERSOL 320 MG/ML - 50 ML VIAL IV ONE (16:42)
[2024-10-15 21:30] VITALS: BP 108/67
[2024-10-16 01:49] VITALS: BP 108/69; O2SAT 96
[2024-10-16 08:41] VITALS: BP 96/64; O2SAT 95
[2024-10-16] MEDS ORDERED: ONDANSETRON HCL 2 MG/ML VIAL IV PRN (16:30)
[2024-10-16 19:00] VITALS: BP 108/67
[2024-10-17 02:38] VITALS: BP 116/72; O2SAT 97
[2024-10-17 06:38] LABS: ALBUMIN 3.1 gm/dL (3.4-5.0); BILIRUBIN TOTAL 0.92 mg/dL (0.3-1.2); CALCIUM 8.4 mg/dL (8.5-10.1); CREATININE SERUM 2.7 mg/dL (0.55-1.02); GFR 17.69; GLOBULINA 3.7 G/DL (2.4-3.5); POTASSIUM 4.33 mEq/L (3.5-5.1); TOTAL PROTEIN 6.8 gm/dL (6.4-8.2)
[2024-10-17 08:54] VITALS: BP 95/57; O2SAT 99
[2024-10-17] MEDS ORDERED: IOVERSOL 320 MG/ML - 50 ML VIAL IV ONE (18:07)
[2024-10-17 18:10] VITALS: BP 110/65; O2SAT 97
[2024-10-17] MEDS ORDERED: MORPHINE SULFATE 4 MG/ML VIAL IV ONE (19:30)
[2024-10-17] MEDS ORDERED: BUPIVACAINE HCL 30 ML VIAL IJ ONE (19:45)
[2024-10-17] MEDS ORDERED: IOVERSOL 320 MG/1 ML 50ML DISP.SYRIN IV ONE (19:45)
[2024-10-17] MEDS ORDERED: ACETAMINOPHEN 500 MG GEL..CAP PO ONE (20:48)
[2024-10-17] MEDS ORDERED: ACETAMINOPHEN 500 MG GEL..CAP PO PRN (21:30)
[2024-10-17] MEDS ORDERED: MORPHINE SULFATE 2 MG/ML CARTRIDGE IV PRN (23:00)
[2024-10-18 02:39] VITALS: BP 79/50; O2SAT 98
[2024-10-18 03:10] VITALS: BP 94/55
[2024-10-18 10:05] VITALS: BP 100/59; O2SAT 95
[2024-10-18 17:44] VITALS: BP 147/68; O2SAT 95
[2024-10-19 02:11] VITALS: BP 90/64; O2SAT 96
[2024-10-19 08:22] LABS: ALBUMIN 2.7 gm/dL (3.4-5.0); BILIRUBIN TOTAL 2.04 mg/dL (0.3-1.2); CALCIUM 8.4 mg/dL (8.5-10.1); CREATININE SERUM 2.7 mg/dL (0.55-1.02); GFR 17.69; GLOBULINA 3.2 G/DL (2.4-3.5); MAGNESIUM 1.7 mg/dL (1.8-2.4); PHOSPHOROUS 2.6 mg/dL (2.5-4.9); POTASSIUM 4.05 mEq/L (3.5-5.1); TOTAL PROTEIN 5.9 gm/dL (6.4-8.2)
[2024-10-19 08:26] LABS: C-REACTIVE PROTEIN 12.7 MG/DL (0.00-0.29)
[2024-10-19] MEDS ORDERED: MAGNESIUM SULFATE IN WATER 50 ML IV NR (08:45)
[2024-10-19 09:06] LABS: HEMATOCRIT 24.1 % (36.0-45.00); MEAN CELL VOLUME 87.2 fL (80.00-100.00); MEAN CORPUSCULAR HGB CONC 34.8 g/dl (32.0-36.0); RED BLOOD COUNT 2.77 M/uL (4.00-6.00); RED CELL DISTRIBUTION WIDTH 16.5 % (11.5-14.5)
[2024-10-19 09:09] LABS: HEMOGLOBIN 8.4 g/dL (12.0-15.00); MEAN CORPUSCULAR HEMOGLOBIN 30.3 pg (27.00-32.0); PLATELET COUNT 125 K/uL (150-450)
[2024-10-19 09:18] VITALS: BP 106/67; O2SAT 97
[2024-10-19 18:36] VITALS: BP 100/60; O2SAT 100
[2024-10-20 01:42] VITALS: BP 116/64; O2SAT 96
[2024-10-20 08:55] VITALS: BP 129/71; O2SAT 99
[2024-10-20 16:37] VITALS: BP 120/66; O2SAT 98
[2024-10-20 21:25] VITALS: BP 100/60; O2SAT 100
[2024-10-21 01:06] VITALS: BP 126/74; O2SAT 98
[2024-10-21 06:48] LABS: MEAN CELL VOLUME 85.5 fL (80.00-100.00); MEAN CORPUSCULAR HGB CONC 35.7 g/dl (32.0-36.0); RED BLOOD COUNT 2.76 M/uL (4.00-6.00)
[2024-10-21 06:50] LABS: HEMATOCRIT 23.6 % (36.0-45.00); MEAN CORPUSCULAR HEMOGLOBIN 30.4 pg (27.00-32.0)
[2024-10-21 06:51] LABS: HEMOGLOBIN 8.4 g/dL (12.0-15.00); PLATELET COUNT 123 K/uL (150-450)
[2024-10-21 07:25] LABS: ALBUMIN 2.9 gm/dL (3.4-5.0); BILIRUBIN TOTAL 0.89 mg/dL (0.3-1.2); CALCIUM 8.3 mg/dL (8.5-10.1); CREATININE SERUM 2.28 mg/dL (0.55-1.02); GFR 21.5; GLOBULINA 3.4 G/DL (2.4-3.5); POTASSIUM 3.74 mEq/L (3.5-5.1); TOTAL PROTEIN 6.3 gm/dL (6.4-8.2)
[2024-10-21 08:52] VITALS: BP 124/74; O2SAT 98
[2024-10-21 08:57] LABS: PH,URINE 7.5 (5.0-8.0); URINE APPEARANCE Cloudy; URINE BILIRRUBIN Negative (NEGATIVE); URINE BLOOD Small; URINE COLOR Yellow; URINE KETONE Negative (NEGATIVE); URINE LEUKOCYTE Large; URINE NITRATE Negative; URINE PROTEIN 30 (NEGATIVE); URINE UROBILINOGEN 0.2 E.U./dl
[2024-10-21 09:01] LABS: URINE BACTERIA 297.2 uL (0.0-1933); URINE EPITHELIAL CELLS 1.5 uL (0.0-38.8); URINE RBC 48.9 uL (0.0-20.8); URINE WBC 547.1 uL (0.0-23.2)
[2024-10-21 09:26] LABS: URINE GLUCOSE 100 MG/DL (NEGATIVE)
[2024-10-21] MEDS ORDERED: ONDANSETRON HCL 4 MG in 0.9 % SODIUM CHLORIDE 50 ML IV PRN (16:45)
[2024-10-21] MEDS ORDERED: CEFTAZIDIME/AVIBACTAM 0.94GM/100ML NSS PB IV SCH (17:00)
[2024-10-21 17:37] VITALS: BP 151/82; O2SAT 100
[2024-10-21] MEDS ORDERED: LACTOBACILLUS ACIDOPHILUS 1 CAP CAP PO SCH (21:00)
[2024-10-21 21:51] VITALS: BP 142/81; O2SAT 97
[2024-10-21] MEDS ORDERED: TAMSULOSIN HCL 0.4 MG CAP PO SCH (23:00)
[2024-10-22 00:36] VITALS: BP 130/80; O2SAT 99
[2024-10-22 09:39] VITALS: BP 139/72; O2SAT 98
[2024-10-22 17:08] VITALS: BP 90/53; O2SAT 98
[2024-10-22 22:42] VITALS: BP 123/65; O2SAT 98
[2024-10-23 01:17] VITALS: BP 136/75; O2SAT 95
[2024-10-23 07:53] LABS: HEMATOCRIT 23.9 % (36.0-45.00); MEAN CORPUSCULAR HGB CONC 35.1 g/dl (32.0-36.0); RED BLOOD COUNT 2.78 M/uL (4.00-6.00); RED CELL DISTRIBUTION WIDTH 15.7 % (11.5-14.5)
[2024-10-23 08:19] LABS: HEMOGLOBIN 8.4 g/dL (12.0-15.00); MEAN CORPUSCULAR HEMOGLOBIN 30.2 pg (27.00-32.0)
[2024-10-23 08:20] LABS: PLATELET COUNT 118 K/uL (150-450)
[2024-10-23 08:23] LABS: ALBUMIN 2.8 gm/dL (3.4-5.0); BILIRUBIN TOTAL 0.72 mg/dL (0.3-1.2); CREATININE SERUM 2.2 mg/dL (0.55-1.02); GFR 22.4; GLOBULINA 3.3 G/DL (2.4-3.5); MAGNESIUM 1.6 mg/dL (1.8-2.4); POTASSIUM 3.79 mEq/L (3.5-5.1); TOTAL PROTEIN 6.1 gm/dL (6.4-8.2)
[2024-10-23 08:49] VITALS: BP 135/76; O2SAT 99
[2024-10-23 18:27] VITALS: BP 90/61
[2024-10-24 02:10] VITALS: BP 96/63; O2SAT 97
[2024-10-24 08:41] VITALS: BP 123/67
[2024-10-24] MEDS ORDERED: AZTREONAM 2,000 MG VIAL IV NR (16:45)
[2024-10-24 16:47] VITALS: BP 140/80
[2024-10-24 17:27] VITALS: BP 130/60
[2024-10-24] MEDS ORDERED: AZTREONAM 1,000 MG in DEXTROSE 5 % IN WATER 50 ML IV SCH (21:00)
[2024-10-25 01:00] VITALS: BP 114/71; O2SAT 99
[2024-10-25 09:05] VITALS: BP 115/68; O2SAT 99
[2024-10-25 18:11] VITALS: BP 111/70; O2SAT 100
[2024-10-26 01:12] VITALS: BP 136/72; O2SAT 100
[2024-10-26] MEDS ORDERED: AZTREONAM 1,000 MG VIAL ONE (07:49)
[2024-10-26 08:59] VITALS: BP 115/73; O2SAT 98
[2024-10-26 10:36] LABS: PH,URINE 7.5 (5.0-8.0); URINE APPEARANCE Clear; URINE BILIRRUBIN Negative (NEGATIVE); URINE BLOOD Trace; URINE COLOR Yellow; URINE KETONE Negative (NEGATIVE); URINE LEUKOCYTE Moderate; URINE NITRATE Negative; URINE PROTEIN 30 (NEGATIVE); URINE UROBILINOGEN 0.2 E.U./dl
[2024-10-26 10:40] LABS: URINE BACTERIA 265.5 uL (0.0-1933); URINE EPITHELIAL CELLS 3.9 uL (0.0-38.8); URINE RBC 2.2 uL (0.0-20.8); URINE WBC 341.7 uL (0.0-23.2)
[2024-10-26 10:49] LABS: URINE CAST 0.14 uL (0.0-1.40); URINE GLUCOSE 100 MG/DL (NEGATIVE)
[2024-10-26 18:45] VITALS: BP 102/56
[2024-10-27 02:27] VITALS: BP 103/64; O2SAT 99
[2024-10-27 09:54] VITALS: BP 118/71; O2SAT 99
[2024-10-27 16:56] VITALS: BP 125/77; O2SAT 99
[2024-10-28] MEDS ORDERED: AZTREONAM 1,000 MG VIAL ONE (11:06)
[2024-10-28] MEDS ORDERED: AMPICILLIN SODIUM/SULBACTAM NA 3,000 MG VIAL ONE (22:23)
[2024-10-29] MEDS ORDERED: AMPICILLIN SODIUM/SULBACTAM NA 3,000 MG VIAL IV NR (10:00)
[2024-10-29] MEDS ORDERED: AZTREONAM 1,000 MG VIAL ONE (13:05)
[2024-10-29 17:39] VITALS: BP 105/70; O2SAT 97
[2024-10-29 20:53] LABS: MEAN CELL VOLUME 88.2 fL (80.00-100.00); MEAN CORPUSCULAR HGB CONC 33.8 g/dl (32.0-36.0); RED BLOOD COUNT 2.63 M/uL (4.00-6.00); RED CELL DISTRIBUTION WIDTH 15.9 % (11.5-14.5)
[2024-10-29 20:58] LABS: HEMATOCRIT 23.2 % (36.0-45.00); HEMOGLOBIN 7.8 g/dL (12.0-15.00); MEAN CORPUSCULAR HEMOGLOBIN 29.6 pg (27.00-32.0); PLATELET COUNT 118 K/uL (150-450)
[2024-10-29] MEDS ORDERED: AMPICILLIN SODIUM/SULBACTAM NA 3,000 MG VIAL IV SCH (21:00)
[2024-10-29] MEDS ORDERED: FOLIC ACID 1 MG TABLET PO SCH (21:04)
[2024-10-29] MEDS ORDERED: CYANOCOBALAMIN (VITAMIN B-12) 1,000 MCG/ML VIAL SUBCUTANEO SCH (21:04)
[2024-10-29] MEDS ORDERED: SOD FERRIC GLUC COMPLX/SUCROSE 62.5 MG/5 ML AMPUL IV SCH (21:05)
[2024-10-29 21:16] LABS: ALBUMIN 2.6 gm/dL (3.4-5.0); BILIRUBIN TOTAL 0.55 mg/dL (0.3-1.2); CALCIUM 8.1 mg/dL (8.5-10.1); CREATININE SERUM 2.17 mg/dL (0.55-1.02); GFR 22.76; GLOBULINA 3.5 G/DL (2.4-3.5); MAGNESIUM 1.7 mg/dL (1.8-2.4); POTASSIUM 3.32 mEq/L (3.5-5.1); TOTAL PROTEIN 6.1 gm/dL (6.4-8.2)
[2024-10-29 21:58] LABS: C-REACTIVE PROTEIN 4.78 MG/DL (0.00-0.29)
[2024-10-29 22:01] LABS: PHOSPHOROUS 1.2 mg/dL (2.5-4.9)
[2024-10-29] MEDS ORDERED: POTASSIUM PHOS,M-BASIC-D-BASIC 3 MM/ML VIAL IV SCH (22:30)
[2024-10-30 00:57] VITALS: BP 124/69; O2SAT 100
[2024-10-30 02:00] LABS: PH,URINE 7.5 (5.0-8.0); URINE APPEARANCE Clear; URINE BILIRRUBIN Negative (NEGATIVE); URINE COLOR Yellow; URINE KETONE Negative (NEGATIVE); URINE LEUKOCYTE Moderate; URINE NITRATE Negative; URINE PROTEIN 30 (NEGATIVE); URINE UROBILINOGEN 0.2 E.U./dl
[2024-10-30 02:05] LABS: URINE BACTERIA 70.9 uL (0.0-1933); URINE BLOOD TRACE; URINE CAST 0.14 uL (0.0-1.40); URINE EPITHELIAL CELLS 2.3 uL (0.0-38.8); URINE GLUCOSE 100 MG/DL (NEGATIVE); URINE RBC 6.7 uL (0.0-20.8); URINE WBC 454.2 uL (0.0-23.2)
[2024-10-30 08:47] VITALS: BP 100/54; O2SAT 99
[2024-10-30 17:56] VITALS: BP 92/60; O2SAT 97
[2024-10-31 00:52] VITALS: BP 110/69
[2024-10-31] MEDS ORDERED: SOD FERRIC GLUC COMPLX/SUCROSE 62.5 MG/5 ML AMPUL IV SCH (09:00)
[2024-10-31 09:19] VITALS: BP 97/57; O2SAT 99
[2024-10-31] MEDS ORDERED: SODIUM BICARBONATE 325 MG TABLET PO SCH (13:25)
[2024-10-31 13:46] LABS: ob NEGATIVE (NEGATIVE)
[2024-10-31 17:14] VITALS: BP 93/59; O2SAT 98
[2024-11-01 00:53] VITALS: BP 116/74
[2024-11-01 08:58] VITALS: BP 111/66; O2SAT 100
[2024-11-01 09:25] LABS: HEMATOCRIT 24.6 % (36.0-45.00); MEAN CELL VOLUME 87.5 fL (80.00-100.00); MEAN CORPUSCULAR HGB CONC 34.3 g/dl (32.0-36.0); PLATELET COUNT 153 K/uL (150-450); RED BLOOD COUNT 2.81 M/uL (4.00-6.00); RED CELL DISTRIBUTION WIDTH 16.2 % (11.5-14.5)
[2024-11-01 09:35] LABS: HEMOGLOBIN 8.4 g/dL (12.0-15.00); MEAN CORPUSCULAR HEMOGLOBIN 29.8 pg (27.00-32.0)
[2024-11-01 10:20] LABS: CALCIUM 8.4 mg/dL (8.5-10.1); CREATININE SERUM 2.01 mg/dL (0.55-1.02); GFR 24.86; MAGNESIUM 1.7 mg/dL (1.8-2.4); POTASSIUM 4.19 mEq/L (3.5-5.1)
[2024-11-01 10:27] LABS: PHOSPHOROUS 1.8 mg/dL (2.5-4.9)
[2024-11-01] MEDS ORDERED: POTASSIUM PHOS,M-BASIC-D-BASIC 18 MM in 0.9 % SODIUM CHLORIDE 250 ML IV ONE (12:00)
[2024-11-01 17:00] VITALS: BP 108/69; O2SAT 98
[2024-11-02 01:58] VITALS: BP 116/74; O2SAT 97
[2024-11-02 10:22] VITALS: BP 122/73; O2SAT 99
[2024-11-02] MEDS ORDERED: ONDANSETRON HCL 2 MG/ML VIAL IV PRN (14:45)
[2024-11-02] MEDS ORDERED: VANCOMYCIN HCL 1,000 MG VIAL IV STA (16:12)
[2024-11-02] MEDS ORDERED: ANIDULAFUNGIN 100 MG VIAL IV STA (16:13)
[2024-11-02 17:09] VITALS: BP 116/73; O2SAT 98
[2024-11-02] MEDS ORDERED: CEFTAZIDIME/AVIBACTAM 0.94GM/100ML NSS PB IV SCH (21:00)
[2024-11-03 00:55] VITALS: BP 92/60; O2SAT 97
[2024-11-03 07:55] LABS: HEMATOCRIT 23.9 % (36.0-45.00); MEAN CELL VOLUME 88.1 fL (80.00-100.00); MEAN CORPUSCULAR HEMOGLOBIN 30.1 pg (27.00-32.0); MEAN CORPUSCULAR HGB CONC 34.2 g/dl (32.0-36.0); PLATELET COUNT 146 K/uL (150-450); RED BLOOD COUNT 2.72 M/uL (4.00-6.00); RED CELL DISTRIBUTION WIDTH 16.8 % (11.5-14.5)
[2024-11-03 07:56] LABS: HEMOGLOBIN 8.2 g/dL (12.0-15.00)
[2024-11-03 08:00] VITALS: BP 99/65; O2SAT 99
[2024-11-03 08:20] LABS: ALBUMIN 2.7 gm/dL (3.4-5.0); BILIRUBIN TOTAL 0.71 mg/dL (0.3-1.2); CALCIUM 8.3 mg/dL (8.5-10.1); CREATININE SERUM 2.07 mg/dL (0.55-1.02); GFR 24.03; GLOBULINA 3.7 G/DL (2.4-3.5); MAGNESIUM 1.6 mg/dL (1.8-2.4); PHOSPHOROUS 2.2 mg/dL (2.5-4.9); POTASSIUM 4.15 mEq/L (3.5-5.1); TOTAL PROTEIN 6.4 gm/dL (6.4-8.2)
[2024-11-03 08:33] LABS: C-REACTIVE PROTEIN 4.9 MG/DL (0.00-0.29)
[2024-11-03] MEDS ORDERED: ANIDULAFUNGIN 100 MG VIAL IV SCH (09:00)
[2024-11-03 09:28] LABS: ERYTHROCYTE SEDIMENTATION RATE 10 mm/hr
[2024-11-03] MEDS ORDERED: MAGNESIUM SULFATE IN WATER 50 ML IV NR (11:15)
[2024-11-03 17:11] VITALS: BP 106/73; O2SAT 99
[2024-11-03] MEDS ORDERED: MAGNESIUM SULFATE IN WATER 50 ML IV ONE (23:00)
[2024-11-03] MEDS ORDERED: POTASSIUM PHOS,M-BASIC-D-BASIC 15 MM in 0.9 % SODIUM CHLORIDE 250 ML IV ONE (23:00)
[2024-11-04 02:41] VITALS: BP 93/60; O2SAT 97
[2024-11-04 08:44] VITALS: BP 109/65; O2SAT 97
[2024-11-04 15:10] VITALS: BP 111/71; O2SAT 100
[2024-11-05 02:43] VITALS: BP 117/78; O2SAT 99
[2024-11-05 10:24] VITALS: BP 130/74
[2024-11-05 14:37] LABS: PH,URINE 7.5 (5.0-8.0); URINE APPEARANCE Clear; URINE BILIRRUBIN Negative (NEGATIVE); URINE BLOOD Negative; URINE COLOR Yellow; URINE KETONE Negative (NEGATIVE); URINE LEUKOCYTE Small; URINE NITRATE Negative; URINE PROTEIN 30 (NEGATIVE); URINE UROBILINOGEN 0.2 E.U./dl
[2024-11-05 14:40] LABS: URINE EPITHELIAL CELLS 4.4 uL (0.0-38.8); URINE WBC 91.9 uL (0.0-23.2)
[2024-11-05 15:23] LABS: URINE CAST 0.14 uL (0.0-1.40); URINE GLUCOSE 250 MG/DL (NEGATIVE)
[2024-11-05 18:26] VITALS: BP 117/75
[2024-11-06 02:23] VITALS: BP 132/83; O2SAT 100
[2024-11-06 08:41] LABS: HEMATOCRIT 26.8 % (36.0-45.00); HEMOGLOBIN 9.2 g/dL (12.0-15.00); MEAN CELL VOLUME 87.8 fL (80.00-100.00); MEAN CORPUSCULAR HEMOGLOBIN 30.2 pg (27.00-32.0); MEAN CORPUSCULAR HGB CONC 34.4 g/dl (32.0-36.0); PLATELET COUNT 167 K/uL (150-450); RED BLOOD COUNT 3.06 M/uL (4.00-6.00); RED CELL DISTRIBUTION WIDTH 17.2 % (11.5-14.5)
[2024-11-06] MEDS ORDERED: EPOETIN ALFA-EPBX 10,000 UNIT/ML VIAL (Retacrit) SUBCUTANEO SCH (09:00)
[2024-11-06 09:21] VITALS: BP 128/77; O2SAT 99
[2024-11-06 09:27] LABS: ALBUMIN 2.9 gm/dL (3.4-5.0); BILIRUBIN TOTAL 0.55 mg/dL (0.3-1.2); CALCIUM 8.3 mg/dL (8.5-10.1); CREATININE SERUM 1.85 mg/dL (0.55-1.02); GFR 27.36; GLOBULINA 3.9 G/DL (2.4-3.5); MAGNESIUM 2.1 mg/dL (1.8-2.4); PHOSPHOROUS 2.4 mg/dL (2.5-4.9); POTASSIUM 4.27 mEq/L (3.5-5.1); TOTAL PROTEIN 6.8 gm/dL (6.4-8.2)
[2024-11-06 09:34] LABS: C-REACTIVE PROTEIN 0.65 MG/DL (0.00-0.29)
[2024-11-06 18:42] VITALS: BP 106/56
[2024-11-07 02:00] VITALS: BP 106/64
[2024-11-07 08:35] VITALS: BP 118/64
[2024-11-07] MEDS ORDERED: ONDANSETRON HCL 2 MG/ML VIAL IV PRN (16:45)
[2024-11-07 19:21] VITALS: BP 118/66; O2SAT 98
[2024-11-08 00:44] VITALS: BP 110/58; O2SAT 98
[2024-11-08 08:36] VITALS: BP 135/69
[2024-11-08] MEDS ORDERED: IOVERSOL 320 MG/ML - 50 ML VIAL IV ONE (09:24)
[2024-11-08] MEDS ORDERED: MORPHINE SULFATE 2 MG/ML CARTRIDGE IV ONE (12:35)
[2024-11-08 18:52] VITALS: BP 108/54
[2024-11-08] MEDS ORDERED: MORPHINE SULFATE 2 MG/ML SYRINGE IV PRN (21:45)
[2024-11-09 01:48] VITALS: BP 110/67; O2SAT 97
[2024-11-09 08:12] LABS: HEMATOCRIT 26.2 % (36.0-45.00); MEAN CELL VOLUME 88.7 fL (80.00-100.00); MEAN CORPUSCULAR HEMOGLOBIN 30.4 pg (27.00-32.0); MEAN CORPUSCULAR HGB CONC 34.2 g/dl (32.0-36.0); PLATELET COUNT 151 K/uL (150-450); RED BLOOD COUNT 2.96 M/uL (4.00-6.00); RED CELL DISTRIBUTION WIDTH 17.7 % (11.5-14.5)
[2024-11-09 08:35] LABS: ALBUMIN 2.8 gm/dL (3.4-5.0); BILIRUBIN TOTAL 0.71 mg/dL (0.3-1.2); CALCIUM 8.4 mg/dL (8.5-10.1); CREATININE SERUM 2.15 mg/dL (0.55-1.02); GLOBULINA 3.8 G/DL (2.4-3.5); MAGNESIUM 1.9 mg/dL (1.8-2.4); PHOSPHOROUS 2.7 mg/dL (2.5-4.9); POTASSIUM 3.97 mEq/L (3.5-5.1); TOTAL PROTEIN 6.6 gm/dL (6.4-8.2)
[2024-11-09 09:58] VITALS: BP 107/63; O2SAT 97
[2024-11-09 17:47] VITALS: BP 96/61; O2SAT 97
[2024-11-10 01:11] VITALS: BP 120/67; O2SAT 98
[2024-11-10 08:04] LABS: URINE APPEARANCE Clear; URINE BILIRRUBIN Negative (NEGATIVE); URINE BLOOD Negative; URINE COLOR Yellow; URINE KETONE Negative (NEGATIVE); URINE LEUKOCYTE Trace; URINE NITRATE Negative; URINE PROTEIN 30 (NEGATIVE); URINE UROBILINOGEN 0.2 E.U./dl
[2024-11-10 08:08] LABS: URINE BACTERIA 13.4 uL (0.0-1933); URINE RBC 3.5 uL (0.0-20.8); URINE WBC 34.1 uL (0.0-23.2)
[2024-11-10 09:40] LABS: URINE GLUCOSE 100 MG/DL (NEGATIVE)
[2024-11-10 10:05] VITALS: BP 105/60; O2SAT 99
[2024-11-10 18:09] VITALS: BP 120/70; O2SAT 97
[2024-11-11 00:43] VITALS: BP 109/65; O2SAT 96
[2024-11-11 06:27] LABS: HEMATOCRIT 25.8 % (36.0-45.00); MEAN CELL VOLUME 88.5 fL (80.00-100.00); MEAN CORPUSCULAR HGB CONC 34.3 g/dl (32.0-36.0); PLATELET COUNT 151 K/uL (150-450); RED BLOOD COUNT 2.92 M/uL (4.00-6.00); RED CELL DISTRIBUTION WIDTH 17.9 % (11.5-14.5)
[2024-11-11 06:33] LABS: HEMOGLOBIN 8.9 g/dL (12.0-15.00); MEAN CORPUSCULAR HEMOGLOBIN 30.4 pg (27.00-32.0)
[2024-11-11 06:52] LABS: ALBUMIN 2.8 gm/dL (3.4-5.0); BILIRUBIN TOTAL 0.86 mg/dL (0.3-1.2); CALCIUM 8.3 mg/dL (8.5-10.1); CREATININE SERUM 1.93 mg/dL (0.55-1.02); GFR 26.05; GLOBULINA 3.6 G/DL (2.4-3.5); MAGNESIUM 1.7 mg/dL (1.8-2.4); POTASSIUM 4.22 mEq/L (3.5-5.1); TOTAL PROTEIN 6.4 gm/dL (6.4-8.2)
[2024-11-11 07:33] LABS: PHOSPHOROUS 1.9 mg/dL (2.5-4.9)
[2024-11-11 08:43] VITALS: BP 126/75; O2SAT 98
[2024-11-11] MEDS ORDERED: POTASSIUM PHOS,M-BASIC-D-BASIC 3 MM/ML VIAL IV ONE (09:00)
[2024-11-11 17:59] VITALS: BP 122/70
[2024-11-12 01:28] VITALS: BP 120/71; O2SAT 98
[2024-11-12 06:55] LABS: ALBUMIN 2.9 gm/dL (3.4-5.0); BILIRUBIN TOTAL 1.02 mg/dL (0.3-1.2); CALCIUM 8.7 mg/dL (8.5-10.1); CREATININE SERUM 1.84 mg/dL (0.55-1.02); GFR 27.53; GLOBULINA 3.9 G/DL (2.4-3.5); PHOSPHOROUS 2.4 mg/dL (2.5-4.9); POTASSIUM 4.26 mEq/L (3.5-5.1); TOTAL PROTEIN 6.8 gm/dL (6.4-8.2)
[2024-11-12 08:32] VITALS: BP 119/70
[2024-11-12 16:26] VITALS: BP 102/70
[2024-11-13 01:31] VITALS: BP 125/70; O2SAT 98
[2024-11-13 09:36] VITALS: BP 120/73; O2SAT 98
[2024-11-13 17:25] VITALS: BP 110/77
[2024-11-14 03:43] VITALS: BP 110/66
[2024-11-14 09:25] VITALS: BP 108/73
[2024-11-14 21:16] VITALS: BP 93/56
[2024-11-15 02:14] VITALS: BP 82/54; O2SAT 100
[2024-11-15 04:42] LABS: ALBUMIN 2.8 gm/dL (3.4-5.0); BILIRUBIN TOTAL 0.73 mg/dL (0.3-1.2); CALCIUM 8.5 mg/dL (8.5-10.1); CREATININE SERUM 2.26 mg/dL (0.55-1.02); GFR 21.72; GLOBULINA 3.8 G/DL (2.4-3.5); HEMATOCRIT 29.6 % (36.0-45.00); MAGNESIUM 1.9 mg/dL (1.8-2.4); MEAN CORPUSCULAR HGB CONC 34.1 g/dl (32.0-36.0); PLATELET COUNT 182 K/uL (150-450); POTASSIUM 4.72 mEq/L (3.5-5.1); RED BLOOD COUNT 3.37 M/uL (4.00-6.00); RED CELL DISTRIBUTION WIDTH 17.3 % (11.5-14.5); TOTAL PROTEIN 6.6 gm/dL (6.4-8.2)
[2024-11-15 05:02] LABS: HEMOGLOBIN 10.1 g/dL (12.0-15.00); MEAN CORPUSCULAR HEMOGLOBIN 29.9 pg (27.00-32.0)
[2024-11-15 09:16] VITALS: BP 110/63; O2SAT 94
[2024-11-15] MEDS ORDERED: GABAPENTIN300 MG PO (15:48)
[2024-11-15] MEDS ORDERED: TAMS0.4C PO (15:48)
[2024-11-15] MEDS ORDERED: PRE PROTEIN1 EACH PO (15:49)
[2024-11-15] MEDS ORDERED: INTESTINEX680 M1 PO (15:49)
[2024-11-15] MEDS ORDERED: PANTOPRAZOLE SO40 MG PO (15:49)
[2024-11-15] MEDS ORDERED: FOLIC ACID1 MG PO (15:50)
[2024-11-15] MEDS ORDERED: VITAMIN B121000 MCG PO (15:52)
[2024-11-15] MEDS ORDERED: CARAFATE1 GM PO (15:53)
[2024-11-15] MEDS ORDERED: SODIUM BICARBO325 MG PO (15:53)
[2024-11-15] MEDS ORDERED: MAGNESIUM400 MG PO (15:54)
[2024-11-15] MEDS ORDERED: Ferro-Plex CAPLET PO (15:55)
[2024-11-15 18:23] VITALS: BP 95/57; O2SAT 98
== END 2024-11-15 20:37 | disposition home or self-care (01) | DRG 853 ==
LOC: ER 19:37 → MEDI 06-29 01:59 → MEDJ 06-29 01:59
PROVIDERS: General Practice; Internal Medicine; Internal Medicine Endocrinology, Diabetes & Metabolism; Internal Medicine Infectious Disease; Internal Medicine Nephrology; Radiology Vascular & Interventional Radiology; Urology; ADMIT Internal Medicine; ATTEND Internal Medicine
PROC: BW21ZZZ Computerized Tomography (CT Scan) of Abdomen and Pelvis (ICD-10-PCS; 2024-06-28)
PROC: 4A12X4Z Monitoring of Cardiac Electrical Activity, External Approach (ICD-10-PCS; 2024-06-29)
PROC: 0H97XZZ Drainage of Abdomen Skin, External Approach (ICD-10-PCS; 2024-06-30)
PROC: 02HV33Z Insertion of Infusion Device into Superior Vena Cava, Percutaneous Approach (ICD-10-PCS; 2024-06-30)
PROC: 0W9G30Z Drainage of Peritoneal Cavity with Drainage Device, Percutaneous Approach (ICD-10-PCS; 2024-06-30)
PROC: 30243N1 Transfusion of Nonautologous Red Blood Cells into Central Vein, Percutaneous Approach (ICD-10-PCS; 2024-07-01)
PROC: 0W9J3ZZ Drainage of Pelvic Cavity, Percutaneous Approach (ICD-10-PCS; 2024-07-02)
PROC: BW21ZZZ Computerized Tomography (CT Scan) of Abdomen and Pelvis (ICD-10-PCS; 2024-07-07)
PROC: 0T9130Z Drainage of Left Kidney with Drainage Device, Percutaneous Approach (ICD-10-PCS; 2024-07-12)
PROC: 0T7D8ZZ Dilation of Urethra, Via Natural or Artificial Opening Endoscopic (ICD-10-PCS; 2024-07-18)
PROC: 0TP98DZ Removal of Intraluminal Device from Ureter, Via Natural or Artificial Opening Endoscopic (ICD-10-PCS; 2024-07-26)
PROC: 0T778DZ Dilation of Left Ureter with Intraluminal Device, Via Natural or Artificial Opening Endoscopic (ICD-10-PCS; principal; 2024-07-26 14:45)
PROC: BW21ZZZ Computerized Tomography (CT Scan) of Abdomen and Pelvis (ICD-10-PCS; 2024-08-04)
PROC: 0W9J30Z Drainage of Pelvic Cavity with Drainage Device, Percutaneous Approach (ICD-10-PCS; 2024-08-05)
PROC: 0T25X0Z Change Drainage Device in Kidney, External Approach (ICD-10-PCS; 2024-08-14)
PROC: BT12YZZ Fluoroscopy of Left Kidney using Other Contrast (ICD-10-PCS; 2024-08-14)
PROC: BW21ZZZ Computerized Tomography (CT Scan) of Abdomen and Pelvis (ICD-10-PCS; 2024-08-22)
PROC: B030YZZ Magnetic Resonance Imaging (MRI) of Brain using Other Contrast (ICD-10-PCS; 2024-08-29)
PROC: BW21ZZZ Computerized Tomography (CT Scan) of Abdomen and Pelvis (ICD-10-PCS; 2024-09-01)
PROC: BW21ZZZ Computerized Tomography (CT Scan) of Abdomen and Pelvis (ICD-10-PCS; 2024-09-14)
PROC: 0TP98DZ Removal of Intraluminal Device from Ureter, Via Natural or Artificial Opening Endoscopic (ICD-10-PCS; 2024-09-16)
PROC: 0T778DZ Dilation of Left Ureter with Intraluminal Device, Via Natural or Artificial Opening Endoscopic (ICD-10-PCS; 2024-09-25)
PROC: 0TP98DZ Removal of Intraluminal Device from Ureter, Via Natural or Artificial Opening Endoscopic (ICD-10-PCS; 2024-09-25)
PROC: 0T25X0Z Change Drainage Device in Kidney, External Approach (ICD-10-PCS; 2024-09-25)
PROC: 0T9030Z Drainage of Right Kidney with Drainage Device, Percutaneous Approach (ICD-10-PCS; 2024-09-30)
PROC: BW21ZZZ Computerized Tomography (CT Scan) of Abdomen and Pelvis (ICD-10-PCS; 2024-10-20)
PROC: BW40ZZZ Ultrasonography of Abdomen (ICD-10-PCS; 2024-10-29)
PROC: BW4GZZZ Ultrasonography of Pelvic Region (ICD-10-PCS; 2024-10-29)
PROC: BW21ZZZ Computerized Tomography (CT Scan) of Abdomen and Pelvis (ICD-10-PCS; 2024-11-02)
PROC: 0T788DZ Dilation of Bilateral Ureters with Intraluminal Device, Via Natural or Artificial Opening Endoscopic (ICD-10-PCS; 2024-11-08)
PROC: 0TP98DZ Removal of Intraluminal Device from Ureter, Via Natural or Artificial Opening Endoscopic (ICD-10-PCS; 2024-11-08)
PROC: 0TP98DZ Removal of Intraluminal Device from Ureter, Via Natural or Artificial Opening Endoscopic (ICD-10-PCS; 2024-11-08)
DX: A41.9 Sepsis, unspecified organism (principal); K68.19 Other retroperitoneal abscess; N39.0 Urinary tract infection, site not specified; T83.512A Infection and inflammatory reaction due to nephrostomy catheter, initial encounter; N17.9 Acute kidney failure, unspecified; T83.84XA Pain due to genitourinary prosthetic devices, implants and grafts, initial encounter; N25.1 Nephrogenic diabetes insipidus; T83.85XA Stenosis due to genitourinary prosthetic devices, implants and grafts, initial encounter; T83.032A Leakage of nephrostomy catheter, initial encounter; R65.20 Severe sepsis without septic shock; D63.1 Anemia in chronic kidney disease; D50.8 Other iron deficiency anemias; D51.3 Other dietary vitamin B12 deficiency anemia; N13.721 Vesicoureteral-reflux with reflux nephropathy without hydroureter, unilateral; N13.9 Obstructive and reflux uropathy, unspecified; N20.0 Calculus of kidney; K21.9 Gastro-esophageal reflux disease without esophagitis; R69 Illness, unspecified; B37.9 Candidiasis, unspecified; E83.39 Other disorders of phosphorus metabolism; D72.819 Decreased white blood cell count, unspecified; B96.5 Pseudomonas (aeruginosa) (mallei) (pseudomallei) as the cause of diseases classified elsewhere; K52.9 Noninfective gastroenteritis and colitis, unspecified; Y73.1 Therapeutic (nonsurgical) and rehabilitative gastroenterology and urology devices associated with adverse incidents; B96.1 Klebsiella pneumoniae [K. pneumoniae] as the cause of diseases classified elsewhere; D69.6 Thrombocytopenia, unspecified
CPT/HCPCS: 70553

== ENCOUNTER 2025-04-05 16:49 | Inpatient (IN) | payer OTHER ==
[~2025-04-05] VITALS: Ht 167.6 cm; Wt 86.2 kg
[~2025-04-05 16:49] MED LIST changes: +CARAFATE1 GM PO; +FOLIC ACID1 MG PO; +Ferro-Plex CAPLET PO; +MAGNESIUM400 MG PO; +SODIUM BICARBO325 MG PO; +TAMS0.4C PO; +VITAMIN B121000 MCG PO
[2025-04-05] MEDS ORDERED: PEPCID AC20 MG PO (17:46)
[2025-04-05] MEDS ORDERED: CARAFATE1 GM PO (17:46)
[2025-04-05 20:53] LABS: BASO % 0.1 % (0.1-1.2); HEMATOCRIT 38.5 % (34.1-44.9); HEMOGLOBIN 12.6 g/dL (11.2-15.7); LYMPH # 0.44 (1.18-3.74); LYMPH % 4.9 % (19.3-53.1); MONO # 0.72 (0.24-0.82); NEUT # 7.75 (1.56-6.13); NEUT % 86.6 % (34.0-71.1); PLATELET COUNT 182 K/uL (163-369); RED BLOOD COUNT 4.34 M/uL (3.93-5.22); RED CELL DISTRIBUTION WIDTH 14.9 % (11.6-14.4)
[2025-04-05 20:58] LABS: PH,URINE 7.5 (5.0-8.0); URINE APPEARANCE Turbid; URINE BILIRRUBIN Negative (NEGATIVE); URINE BLOOD Large; URINE COLOR Yellow; URINE GLUCOSE Negative (NEGATIVE); URINE KETONE Negative (NEGATIVE); URINE LEUKOCYTE Large; URINE NITRATE Negative; URINE UROBILINOGEN 0.2 E.U./dl
[2025-04-05 21:03] LABS: URINE EPITHELIAL CELLS 144.6 uL (0.0-38.8); URINE RBC 838.1 uL (0.0-20.8)
[2025-04-05 21:11] LABS: COVID-19 AG NEGATIVE (NEGATIVE)
[2025-04-05 21:16] LABS: INFLUENZA A AG NEGATIVE (NEGATIVE); INFLUENZA B AG NEGATIVE (NEGATIVE)
[2025-04-05 21:26] LABS: ALBUMIN 3.7 gm/dL (3.4-5.0); BILIRUBIN TOTAL 1.01 mg/dL (0.3-1.2); GFR 10.09; POTASSIUM 4.11 mEq/L (3.5-5.1); TOTAL PROTEIN 7.7 gm/dL (6.4-8.2)
[2025-04-05 21:27] LABS: URINE PROTEIN 300 (NEGATIVE); URINE WBC > 5548.3 uL (0.0-23.2)
[2025-04-05 21:30] LABS: CREATININE SERUM 4.39 mg/dL (0.55-1.02)
[2025-04-05 21:34] LABS: URINE BACTERIA > 9821.5 uL (0.0-1933); URINE CAST > 21.83 uL (0.0-1.40)
[2025-04-05 21:39] LABS: URINE YEAST NEGATIVE /hpf
[2025-04-05] MEDS ORDERED: CEFTRIAXONE SODIUM 2,000 MG VIAL IV STA (21:43)
[2025-04-05] MEDS ORDERED: CEFTRIAXONE SODIUM 2,000 MG VIAL ONE (21:55)
[2025-04-05] MEDS ORDERED: MEROPENEM 500 MG/VIAL VIAL IV SCH (23:27)
[2025-04-05] MEDS ORDERED: 0.9 % SODIUM CHLORIDE 1,000 ML IV SCH (23:30)
[2025-04-05] MEDS ORDERED: ACETAMINOPHEN 500 MG GEL..CAP PO PRN (23:30)
[2025-04-05] MEDS ORDERED: 0.9 % SODIUM CHLORIDE 1,000 ML IV ONE (23:45)
[2025-04-06 01:47] LABS: INR 1.08; PARTIAL THROMBOPLASTIN TIME 34.4 SECONDS (22.0-34.0); PROTHROMBIN TIME 11.7 SECONDS (9.0-11.5)
[2025-04-06 02:00] VITALS: BP 113/70; O2SAT 98
[2025-04-06] MEDS ORDERED: ONDANSETRON HCL 2 MG/ML VIAL IV PRN (08:15)
[2025-04-06] MEDS ORDERED: TAMSULOSIN HCL 0.4 MG CAP PO SCH (09:00)
[2025-04-06] MEDS ORDERED: FAMOTIDINE/PF 20 MG in 0.9 % SODIUM CHLORIDE 8 ML IV PUSH SCH (09:00)
[2025-04-06] MEDS ORDERED: ENOXAPARIN SODIUM 30 MG/0.3 ML SYRINGE SUBCUTANEO SCH (09:00)
[2025-04-06 10:09] VITALS: BP 117/65; O2SAT 97
[2025-04-06] MEDS ORDERED: LIDOCAINE HCL 2% JELLY 6 ML SYRINGE MM NR (11:00)
[2025-04-06 16:00] VITALS: BP 108/65; O2SAT 100
[2025-04-07 02:04] VITALS: BP 103/66; O2SAT 95
[2025-04-07 07:08] LABS: ALBUMIN 2.9 gm/dL (3.4-5.0); BILIRUBIN TOTAL 0.86 mg/dL (0.3-1.2); CALCIUM 8.8 mg/dL (8.5-10.1); CREATININE SERUM 3.88 mg/dL (0.55-1.02); GFR 11.64; GLOBULINA 3.7 G/DL (2.4-3.5); POTASSIUM 4.15 mEq/L (3.5-5.1); TOTAL PROTEIN 6.6 gm/dL (6.4-8.2)
[2025-04-07 08:40] VITALS: BP 103/64; O2SAT 99
[2025-04-07] MEDS ORDERED: RINGERS SOLUTION,LACTATED 1,000 ML IV SCH (09:00)
[2025-04-07 16:55] VITALS: BP 96/56
[2025-04-08 01:35] VITALS: BP 131/70; O2SAT 100
[2025-04-08 05:15] LABS: BASO % 0.3 % (0.1-1.2); HEMATOCRIT 32.3 % (34.1-44.9); HEMOGLOBIN 10.3 g/dL (11.2-15.7); LYMPH # 0.31 (1.18-3.74); LYMPH % 9.6 % (19.3-53.1); MEAN CORPUSCULAR HEMOGLOBIN 28.2 pg (25.6-32.2); MONO # 0.48 (0.24-0.82); NEUT # 2.41 (1.56-6.13); NEUT % 74.4 % (34.0-71.1); PLATELET COUNT 159 K/uL (163-369); RED BLOOD COUNT 3.65 M/uL (3.93-5.22)
[2025-04-08 05:16] LABS: MONO % 14.8 % (4.7-12.5)
[2025-04-08 07:04] LABS: ALBUMIN 2.8 gm/dL (3.4-5.0); BILIRUBIN TOTAL 0.57 mg/dL (0.3-1.2); CALCIUM 8.5 mg/dL (8.5-10.1); CREATININE SERUM 3.55 mg/dL (0.55-1.02); GFR 12.9; GLOBULINA 3.6 G/DL (2.4-3.5); MAGNESIUM 2.2 mg/dL (1.8-2.4); PHOSPHOROUS 2.9 mg/dL (2.5-4.9); POTASSIUM 3.71 mEq/L (3.5-5.1); TOTAL PROTEIN 6.4 gm/dL (6.4-8.2)
[2025-04-08 07:05] LABS: C-REACTIVE PROTEIN 8.69 MG/DL (0.00-0.29)
[2025-04-08] MEDS ORDERED: DIPHENHYDRAMINE HCL 50 MG/ML VIAL 1ML IV SCH (09:00)
[2025-04-08 09:01] VITALS: BP 116/67; O2SAT 99
[2025-04-08] MEDS ORDERED: BENZONATATE 100 MG CAPSULE PO NR (11:00)
[2025-04-08] MEDS ORDERED: BENZONATATE 100 MG CAPSULE PO SCH (13:00)
[2025-04-08 15:06] LABS: FERRITIN 1939.5 NG/ML (8-252)
[2025-04-08 15:16] LABS: FOLIC ACID > 20.00 ng/ml (4.78-20)
[2025-04-08 16:56] VITALS: BP 105/69; O2SAT 97
[2025-04-08 17:53] LABS: URINE APPEARANCE Turbid; URINE BILIRRUBIN Negative (NEGATIVE); URINE BLOOD Large; URINE COLOR Yellow; URINE GLUCOSE Negative (NEGATIVE); URINE KETONE Negative (NEGATIVE); URINE LEUKOCYTE Large; URINE NITRATE Negative; URINE UROBILINOGEN 0.2 E.U./dl
[2025-04-08 17:57] LABS: URINE CAST 2.65 uL (0.0-1.40); URINE EPITHELIAL CELLS 29.2 uL (0.0-38.8); URINE RBC 255.7 uL (0.0-20.8)
[2025-04-08 18:08] LABS: URINE PROTEIN 100 (NEGATIVE)
[2025-04-08] MEDS ORDERED: MEROPENEM 1,000 MG VIAL IV SCH (21:00)
[2025-04-09 02:05] VITALS: BP 147/76; O2SAT 95
[2025-04-09] MEDS ORDERED: GUAIFENESIN 200 MG/10 ML BLIST.PACK PO SCH (08:00)
[2025-04-09] MEDS ORDERED: METHYLPREDNISOLONE SOD SUCC 40 MG VIAL IV SCH (08:00)
[2025-04-09] MEDS ORDERED: FAMOtidine 20 MG TABLET PO SCH (09:00)
[2025-04-09] MEDS ORDERED: BUDESONIDE 0.5 MG/2 ML AMPUL.NEB IH SCH (09:00)
[2025-04-09 09:17] VITALS: BP 103/69; O2SAT 96
[2025-04-09] MEDS ORDERED: ALBUTEROL SULFATE 3 ML/2.5 MG AMPUL.NEB IH SCH (12:00)
[2025-04-09 12:03] LABS: COVID-19 AG NEGATIVE (NEGATIVE)
[2025-04-09 12:04] LABS: INFLUENZA A AG POSITIVE (NEGATIVE); INFLUENZA B AG NEGATIVE (NEGATIVE)
[2025-04-09] MEDS ORDERED: OSELTAMIVIR PHOSPHATE 30MG CAP PO SCH (17:00)
[2025-04-09 17:52] VITALS: BP 113/72; O2SAT 96
[2025-04-10 02:00] VITALS: BP 124/73; O2SAT 95
[2025-04-10 05:40] VITALS: BP 136/71; O2SAT 96
[2025-04-10] MEDS ORDERED: METHYLPREDNISOLONE SOD SUCC 40 MG VIAL IV SCH (10:53)
[2025-04-10 11:04] VITALS: BP 125/71; O2SAT 98
[2025-04-10] MEDS ORDERED: IPRATROPIUM BROMIDE 0.5 MG/2.5 ML AMPUL.NEB IH SCH (14:00)
[2025-04-10 16:52] VITALS: BP 118/66; O2SAT 99
[2025-04-11 01:24] VITALS: BP 145/72; O2SAT 97
[2025-04-11 05:25] LABS: HEMATOCRIT 35.3 % (34.1-44.9); HEMOGLOBIN 11.3 g/dL (11.2-15.7); LYMPH # 0.54 (1.18-3.74); LYMPH % 18.5 % (19.3-53.1); MONO # 0.32 (0.24-0.82); NEUT # 2.03 (1.56-6.13); NEUT % 69.5 % (34.0-71.1); PLATELET COUNT 176 K/uL (163-369); RED BLOOD COUNT 4.03 M/uL (3.93-5.22); RED CELL DISTRIBUTION WIDTH 14.1 % (11.6-14.4)
[2025-04-11 05:50] LABS: ALBUMIN 3.1 gm/dL (3.4-5.0); BILIRUBIN TOTAL 0.45 mg/dL (0.3-1.2); CALCIUM 8.7 mg/dL (8.5-10.1); CREATININE SERUM 2.34 mg/dL (0.55-1.02); GFR 20.86; GLOBULINA 3.8 G/DL (2.4-3.5); MAGNESIUM 1.8 mg/dL (1.8-2.4); POTASSIUM 5.11 mEq/L (3.5-5.1); TOTAL PROTEIN 6.9 gm/dL (6.4-8.2)
[2025-04-11 08:59] VITALS: BP 135/73; O2SAT 96
[2025-04-11] MEDS ORDERED: DESMOPRESSIN ACETATE 4 MCG/ML AMPUL SUBCUTANEO STA (11:50)
[2025-04-11] MEDS ORDERED: CHLORHEXIDINE GLUCONATE 120 ML BOTTLE TOP ONE (14:27)
[2025-04-11] MEDS ORDERED: IOVERSOL 320 MG/ML - 50 ML VIAL IV ONE (14:27)
[2025-04-11 17:36] VITALS: BP 160/76; O2SAT 97
[2025-04-11] MEDS ORDERED: DESMOPRESSIN ACETATE 4 MCG/ML AMPUL SUBCUTANEO SCH (21:00)
[2025-04-12] VITALS: BP 146/75; O2SAT 99
[2025-04-12] MEDS ORDERED: MORPHINE SULFATE 2 MG/ML CARTRIDGE IV PRN (01:15)
[2025-04-12 09:01] VITALS: BP 151/75
[2025-04-12] MEDS ORDERED: LEVALBUTEROL HCL 1.25 MG/3 ML SOLUTION IH SCH (12:00)
[2025-04-12] MEDS ORDERED: METHYLPREDNISOLONE SOD SUCC 125 MG VIAL IV SCH (12:00)
[2025-04-12] MEDS ORDERED: IPRATROPIUM BROMIDE 0.5 MG/2.5 ML AMPUL.NEB IH SCH (13:00)
[2025-04-12] MEDS ORDERED: OSELTAMIVIR PHOSPHATE 75 MG CAPSULE PO SCH (17:00)
[2025-04-12] MEDS ORDERED: OSELTAMIVIR PHOSPHATE 30MG CAP PO SCH (17:00)
[2025-04-12 17:07] VITALS: BP 136/80; O2SAT 97
[2025-04-12 23:00] LABS: PH,URINE 7.5 (5.0-8.0); URINE APPEARANCE Cloudy; URINE BILIRRUBIN Small (NEGATIVE); URINE BLOOD Large; URINE COLOR Red; URINE KETONE Negative (NEGATIVE); URINE LEUKOCYTE Large; URINE NITRATE Negative; URINE UROBILINOGEN 0.2 E.U./dl
[2025-04-12 23:04] LABS: URINE BACTERIA 471.2 uL (0.0-1933)
[2025-04-12 23:09] LABS: TYPE CELLS SQUAMOUS; URINE CAST 0.92 uL (0.0-1.40); URINE GLUCOSE 500 MG/DL (NEGATIVE); URINE PROTEIN 100 (NEGATIVE); URINE RBC > 10558.9 uL (0.0-20.8)
[2025-04-13] VITALS: BP 119/75; O2SAT 95
[2025-04-13 07:27] LABS: HEMATOCRIT 35.8 % (34.1-44.9); HEMOGLOBIN 11.4 g/dL (11.2-15.7); LYMPH # 0.34 (1.18-3.74); LYMPH % 17.6 % (19.3-53.1); MONO # 0.08 (0.24-0.82); MONO % 4.1 % (4.7-12.5); NEUT # 1.43 (1.56-6.13); NEUT % 74.2 % (34.0-71.1); PLATELET COUNT 173 K/uL (163-369); RED BLOOD COUNT 4.07 M/uL (3.93-5.22)
[2025-04-13 07:48] LABS: ALBUMIN 3.1 gm/dL (3.4-5.0); BILIRUBIN TOTAL 0.43 mg/dL (0.3-1.2); CALCIUM 8.7 mg/dL (8.5-10.1); CREATININE SERUM 2.12 mg/dL (0.55-1.02); GFR 23.38; GLOBULINA 3.5 G/DL (2.4-3.5); MAGNESIUM 1.8 mg/dL (1.8-2.4); PHOSPHOROUS 3.4 mg/dL (2.5-4.9); POTASSIUM 5.15 mEq/L (3.5-5.1); TOTAL PROTEIN 6.6 gm/dL (6.4-8.2)
[2025-04-13 08:48] VITALS: BP 159/73
[2025-04-13] MEDS ORDERED: SODIUM POLYSTYRENE SULFONATE 30G/8 TSP PO ONE (10:15)
[2025-04-13 17:04] VITALS: BP 142/73; O2SAT 99
[2025-04-14] VITALS: BP 157/76; O2SAT 100
[2025-04-14 07:00] VITALS: BP 169/83
[2025-04-14 16:45] VITALS: BP 119/79; O2SAT 96
[2025-04-14] MEDS ORDERED: METHYLPREDNISOLONE SOD SUCC 40 MG VIAL IV SCH (18:00)
[2025-04-15 00:24] VITALS: BP 136/68; O2SAT 95
[2025-04-15 07:00] VITALS: BP 161/78; O2SAT 96
[2025-04-15] MEDS ORDERED: METHYLPREDNISOLONE SOD SUCC 40 MG VIAL IV SCH (17:00)
[2025-04-15 17:22] VITALS: BP 120/84; O2SAT 94
[2025-04-16] MEDS ORDERED: METHYLPREDNISOLONE SOD SUCC 40 MG VIAL IV SCH (01:00)
[2025-04-16 01:26] VITALS: BP 157/66; O2SAT 98
[2025-04-16 09:43] VITALS: BP 167/76; O2SAT 96
[2025-04-16] MEDS ORDERED: AMLODIPINE BESYLATE 5 MG TABLET PO NR (16:05)
[2025-04-16 16:12] VITALS: BP 162/92; O2SAT 95
[2025-04-16] MEDS ORDERED: METHYLPREDNISOLONE SOD SUCC 125 MG VIAL IV SCH (17:00)
[2025-04-16 19:02] LABS: ABG PO2 78.4 mmHg (80-100); ABG pCO2 28.8 mmHg (35-45); SaO2 95.4 %
[2025-04-16 19:03] LABS: BASE EXCESS -5.3 mmol/l; BICARBONATE 17.8 mmol/l (23-25); Tco2 18.7 mmol/l; allen test SATISFACTORY; mode ROOM AIR; o2 21 %; puncture site RADIAL RIGHT
[2025-04-17 00:22] VITALS: BP 162/74; O2SAT 96
[2025-04-17] MEDS ORDERED: METHYLPREDNISOLONE SOD SUCC 40 MG VIAL IV SCH (01:00)
[2025-04-17 05:27] LABS: BASO % 0.4 % (0.1-1.2); HEMATOCRIT 34.9 % (34.1-44.9); HEMOGLOBIN 11.2 g/dL (11.2-15.7); LYMPH # 0.46 (1.18-3.74); LYMPH % 6.8 % (19.3-53.1); MEAN CORPUSCULAR HEMOGLOBIN 27.7 pg (25.6-32.2); MONO % 4.4 % (4.7-12.5); NEUT # 5.56 (1.56-6.13); NEUT % 81.9 % (34.0-71.1); RED BLOOD COUNT 4.04 M/uL (3.93-5.22); RED CELL DISTRIBUTION WIDTH 14.2 % (11.6-14.4)
[2025-04-17 06:01] LABS: ALBUMIN 2.9 gm/dL (3.4-5.0); BILIRUBIN TOTAL 0.7 mg/dL (0.3-1.2); CALCIUM 8.4 mg/dL (8.5-10.1); CREATININE SERUM 1.8 mg/dL (0.55-1.02); GFR 28.24; GLOBULINA 3.1 G/DL (2.4-3.5); MAGNESIUM 1.7 mg/dL (1.8-2.4); PHOSPHOROUS 2.4 mg/dL (2.5-4.9); POTASSIUM 4.02 mEq/L (3.5-5.1)
[2025-04-17 06:40] LABS: PLATELET COUNT 176 K/uL (163-369)
[2025-04-17] MEDS ORDERED: AMLODIPINE BESYLATE 5 MG TABLET PO SCH (09:00)
[2025-04-17 12:30] VITALS: BP 175/78; O2SAT 97
[2025-04-17] MEDS ORDERED: AMLODIPINE BESYLATE 5 MG TABLET PO STA (13:05)
[2025-04-17] MEDS ORDERED: POTASSIUM PHOS,M-BASIC-D-BASIC 15 MM in 0.9 % SODIUM CHLORIDE 250 ML IV NR (13:30)
[2025-04-17 16:25] VITALS: BP 145/77; O2SAT 96
[2025-04-17] MEDS ORDERED: SODIUM CHLORIDE 0.45 % 1,000 ML IV SCH (17:00)
[2025-04-17] MEDS ORDERED: DOXAZOSIN MESYLATE 2 MG TABLET PO SCH (17:00)
[2025-04-18 00:36] VITALS: BP 124/71; O2SAT 95
[2025-04-18] MEDS ORDERED: METHYLPREDNISOLONE SOD SUCC 40 MG VIAL IV SCH ×2 (01:00→17:00)
[2025-04-18] MEDS ORDERED: AMLODIPINE BESYLATE 10 MG TABLET PO SCH (09:00)
[2025-04-18 10:27] VITALS: BP 128/73; O2SAT 98
[2025-04-19 00:54] VITALS: BP 144/74; O2SAT 98
[2025-04-19 10:04] VITALS: BP 118/69; O2SAT 98
[2025-04-19] MEDS ORDERED: NORVASC2.5 M1 PO (11:50)
[2025-04-19] MEDS ORDERED: MEDROLPACK PO (11:51)
[2025-04-19] MEDS ORDERED: INTESTINEX680 M1 PO (11:52)
[2025-04-19] MEDS ORDERED: BREO ELLIPTA 21 EACH IH (11:54)
[2025-04-19] MEDS ORDERED: PEPCID AC20 MG PO (11:56)
[2025-04-19] MEDS ORDERED: PROTONIX40 MG PO (11:56)
[2025-04-19] MEDS ORDERED: Ferro-Plex CAPLET PO (11:56)
[2025-04-19] MEDS ORDERED: VITAMIN B121000 MCG PO (11:57)
[2025-04-19] MEDS ORDERED: PRE PROTEIN1 EACH PO (11:57)
[2025-04-19] MEDS ORDERED: FOLIC ACID1 MG PO (11:57)
[2025-04-19] MEDS ORDERED: TAMS0.4C PO (12:04)
== END 2025-04-19 14:02 | disposition home or self-care (01) | DRG 659 ==
LOC: ER 16:57 → SEC-K 23:31 → ER 04-06 00:14 → MEDI 04-06 00:14 → SEC-K 04-06 02:35 → MEDI 04-19 07:02
PROVIDERS: General Practice; Internal Medicine; Internal Medicine Infectious Disease; Urology; ADMIT Internal Medicine; ATTEND Internal Medicine
PROC: BW21ZZZ Computerized Tomography (CT Scan) of Abdomen and Pelvis (ICD-10-PCS; 2025-04-05)
PROC: 02HV33Z Insertion of Infusion Device into Superior Vena Cava, Percutaneous Approach (ICD-10-PCS; 2025-04-08)
PROC: 3E0F7GC Introduction of Other Therapeutic Substance into Respiratory Tract, Via Natural or Artificial Opening (ICD-10-PCS; 2025-04-10)
PROC: 0TJB8ZZ Inspection of Bladder, Via Natural or Artificial Opening Endoscopic (ICD-10-PCS; 2025-04-11)
PROC: 0TP98DZ Removal of Intraluminal Device from Ureter, Via Natural or Artificial Opening Endoscopic (ICD-10-PCS; 2025-04-11)
PROC: 0T788DZ Dilation of Bilateral Ureters with Intraluminal Device, Via Natural or Artificial Opening Endoscopic (ICD-10-PCS; principal; 2025-04-11 17:30)
PROC: BW24ZZZ Computerized Tomography (CT Scan) of Chest and Abdomen (ICD-10-PCS; 2025-04-16)
PROC: B24BYZZ Ultrasonography of Heart with Aorta using Other Contrast (ICD-10-PCS; 2025-04-16)
DX: N39.0 Urinary tract infection, site not specified (principal); A41.9 Sepsis, unspecified organism; E87.0 Hyperosmolality and hypernatremia; N17.9 Acute kidney failure, unspecified; J45.901 Unspecified asthma with (acute) exacerbation; J81.1 Chronic pulmonary edema; J98.11 Atelectasis; B96.5 Pseudomonas (aeruginosa) (mallei) (pseudomallei) as the cause of diseases classified elsewhere; J10.1 Influenza due to other identified influenza virus with other respiratory manifestations; E11.9 Type 2 diabetes mellitus without complications; Z79.4 Long term (current) use of insulin; E66.9 Obesity, unspecified

== ENCOUNTER 2025-07-25 08:00 | Outpatient (CLI) | payer OTHER ==
[~2025-07-25] VITALS: Ht 167.6 cm; Wt 88.9 kg
[~2025-07-25 08:00] MED LIST changes: +BREO ELLIPTA 21 EACH IH; +MEDROLPACK PO; +PEPCID AC20 MG PO; +PROTONIX40 MG PO
[2025-07-25] MEDS ORDERED: [UNRECOGNIZED DRUG - OTHER] (08:54)
[2025-07-25] MEDS ORDERED: AZO D-MANNOSE500 M1 (08:54)
[2025-07-25] MEDS ORDERED: BIOTINEX (08:54)
[2025-07-25 09:07] LABS: BASO % 0.3 % (0.1-1.2); EOS # 0.03 (0.04-0.54); EOS % 0.5 % (0.7-7.0); LYMPH # 1.29 (1.18-3.74); LYMPH % 21.7 % (19.3-53.1); MEAN PLATELET VOLUME 9.70 fl (9.4-12.4); MONO # 0.52 (0.24-0.82); MONO % 8.7 % (4.7-12.5); NEUT # 4.04 (1.56-6.13); NEUT % 68.0 % (34.0-71.1); RED CELL DISTRIBUTION WIDTH 15.5 % (11.6-14.4)
[2025-07-25 09:13] LABS: URINE APPEARANCE Turbid; URINE BILIRRUBIN Negative (NEGATIVE); URINE BLOOD Moderate; URINE COLOR Yellow; URINE GLUCOSE Negative (NEGATIVE); URINE KETONE Negative (NEGATIVE); URINE LEUKOCYTE Large; URINE NITRATE Negative; URINE UROBILINOGEN 0.2 E.U./dl
[2025-07-25 09:14] LABS: URINE EPITHELIAL CELLS 26.4 uL (0.0-38.8); URINE RBC 469.5 uL (0.0-20.8)
[2025-07-25 09:15] VITALS: BP 132/81
[2025-07-25 10:06] LABS: BUN CREA RATIO 12.0 (7.0-25.0); CREATININE SERUM 2.9 mg/dL (0.55-1.02); GFR 16.24; GLUCOSE FASTING 106.0 mg/dL (65-100); OSMOLALITY SERUM 290.0 MOSM/KG (275-295)
[2025-07-25 10:08] LABS: COVID-19 AG NEGATIVE (NEGATIVE)
[2025-07-25 10:13] LABS: INR 1.0
[2025-07-25 10:50] LABS: URINE CAST 1.00 uL (0.0-1.40); URINE PROTEIN 300 (NEGATIVE); URINE WBC > 5548.3 uL (0.0-23.2)
== END 2025-07-25 08:01 | disposition home or self-care (01) ==
LOC: RAD 08:00 → LAB 08:00 → RAD 08:01 → EDSTATUS 08-01 07:30 → SURH 08-01 07:30
PROVIDERS: ATTEND Urology
DX: R31.1 Benign essential microscopic hematuria (principal); N30.00 Acute cystitis without hematuria; N20.0 Calculus of kidney; N13.1 Hydronephrosis with ureteral stricture, not elsewhere classified

== ENCOUNTER 2025-07-30 19:29 | Inpatient (IN) | payer OTHER ==
[~2025-07-30] VITALS: Ht 167.6 cm; Wt 88.9 kg
[~2025-07-30 19:29] MED LIST changes: +AZO D-MANNOSE500 M1; +BIOTINEX; +[UNRECOGNIZED DRUG - OTHER]
--- NOTE | 2025-07-30 20:28 | NUR ---
PACIENTE ALERTA Y ORIENTADA X 3. REFIERE FUE EVALUADA POR GAGNON INTERNISTA EL DR Graves BELL QUIE LE INDICA PASAR A ER PARA SER ADMITIDA.
[2025-07-30] MEDS ORDERED: ORTHO DF 3,7751 EACH (20:32)
[2025-07-30] MEDS ORDERED: DDAVP0.1 MG NASAL (20:33)
[2025-07-30] MEDS ORDERED: AZO D-MANNOSE500 MG PO (20:34)
[2025-07-30] MEDS ORDERED: MEROPENEM 1,000 MG VIAL IV STA (20:43)
[2025-07-30] MEDS ORDERED: MEROPENEM 500 MG/VIAL VIAL IV SCH (21:24)
--- NOTE | 2025-07-30 21:24 | NUR ---
SE ORIENTA A PACIENTE SOBRE TX MEDICO, REFIERE ENTENDER. SE REALIZAN MUESTRAS DE LABORATORIO BAJO MEDIDAS ASEPTICAS. SE ADMINISTRAN MEDICAMENTOS DEBRA ORDEN MEDICA. PACIENTE MANEJADA POR .
[2025-07-30] MEDS ORDERED: ENOXAPARIN SODIUM 30 MG/0.3 ML SYRINGE SUBCUTANEO SCH (21:26)
[2025-07-30] MEDS ORDERED: 0.9 % SODIUM CHLORIDE 1,000 ML IV SCH (21:30)
[2025-07-30] MEDS ORDERED: CITRIC ACID/SODIUM CITRATE 30 ML BLIST.PACK PO SCH (21:33)
[2025-07-30] MEDS ORDERED: ACETAMINOPHEN 500 MG GEL..CAP PO PRN (21:45)
[2025-07-30] MEDS ORDERED: CITRIC ACID/SODIUM CITRATE 30 ML BLIST.PACK PO ONE (22:27)
[2025-07-30] MEDS ORDERED: ENOXAPARIN SODIUM 60 MG/0.6 ML SYRINGE SUBCUTANEO ONE (22:27)
[2025-07-30 22:37] LABS: BASO % 0.3 % (0.1-1.2); EOS # 0.02 (0.04-0.54); EOS % 0.3 % (0.7-7.0); LYMPH # 1.18 (1.18-3.74); LYMPH % 16.1 % (19.3-53.1); MEAN PLATELET VOLUME 9.80 fl (9.4-12.4); MONO # 0.66 (0.24-0.82); MONO % 9.0 % (4.7-12.5); NEUT # 5.39 (1.56-6.13); NEUT % 73.6 % (34.0-71.1); RED CELL DISTRIBUTION WIDTH 15.4 % (11.6-14.4)
[2025-07-30 22:47] LABS: URINE APPEARANCE Turbid; URINE BACTERIA 4681.1 uL (0.0-1933); URINE BILIRRUBIN Negative (NEGATIVE); URINE BLOOD Moderate; URINE COLOR Yellow; URINE EPITHELIAL CELLS 88.9 uL (0.0-38.8); URINE GLUCOSE Negative (NEGATIVE); URINE KETONE Negative (NEGATIVE); URINE LEUKOCYTE Large; URINE NITRATE Negative; URINE RBC 182.1 uL (0.0-20.8); URINE UROBILINOGEN 0.2 E.U./dl
[2025-07-30 22:59] LABS: URINE CAST 0.69 uL (0.0-1.40); URINE PROTEIN 300 (NEGATIVE); URINE WBC > 5548.3 uL (0.0-23.2)
[2025-07-30 23:06] LABS: INR 0.99
[2025-07-31 02:26] VITALS: BP 119/80; O2SAT 99
[2025-07-31] MEDS ORDERED: MEROPENEM 500 MG/VIAL VIAL IV SCH (09:00)
[2025-07-31] MEDS ORDERED: FAMOTIDINE/PF 20 MG in 0.9 % SODIUM CHLORIDE 8 ML IV PUSH SCH (09:00)
[2025-07-31 09:24] VITALS: BP 117/66; O2SAT 99
[2025-07-31 12:53] LABS: ALT/SGPT 16.0 U/L (12-78); AST/SGOT 7.0 U/L (15-37); BILIRUBIN TOTAL 0.61 mg/dL (0.3-1.2); BUN CREA RATIO 12.0 (7.0-25.0); CREATININE SERUM 2.93 mg/dL (0.55-1.02); GFR 16.04; GLOBULINA 3.5 G/DL (2.4-3.5); GLUCOSE FASTING 118.0 mg/dL (65-100); OSMOLALITY SERUM 294.0 MOSM/KG (275-295)
[2025-07-31 17:30] VITALS: BP 115/68
[2025-08-01 01:47] VITALS: BP 105/64; O2SAT 97
[2025-08-01 06:39] LABS: ALT/SGPT 13.0 U/L (12-78); AST/SGOT 10.0 U/L (15-37); BILIRUBIN TOTAL 0.74 mg/dL (0.3-1.2); BUN CREA RATIO 11.0 (7.0-25.0); CREATININE SERUM 2.63 mg/dL (0.55-1.02); GFR 18.17; GLOBULINA 3.5 G/DL (2.4-3.5); GLUCOSE FASTING 85.0 mg/dL (65-100); OSMOLALITY SERUM 290.0 MOSM/KG (275-295)
[2025-08-01] MEDS ORDERED: IOVERSOL 320 MG/ML - 50 ML VIAL IV ONE (09:00)
[2025-08-01 13:00] VITALS: BP 125/81; O2SAT 96
[2025-08-01] MEDS ORDERED: MORPHINE SULFATE 4 MG/ML CARTRIDGE IV PRN (16:15)
[2025-08-01] MEDS ORDERED: MORPHINE SULFATE 2 MG/ML SYRINGE IV PRN ×2 (16:30)
[2025-08-01 20:14] VITALS: BP 115/63; O2SAT 96
[2025-08-01] MEDS ORDERED: ONDANSETRON HCL 2 MG/ML VIAL ONE (21:54)
[2025-08-01] MEDS ORDERED: FAMOTIDINE/PF 20 MG/2 ML VIAL IV PUSH STA (22:02)
[2025-08-01] MEDS ORDERED: ONDANSETRON 4 MG TAB.RAPDIS PO PRN (22:15)
[2025-08-02 00:38] VITALS: BP 100/53; O2SAT 99
[2025-08-02 07:37] LABS: BASO % 0.2 % (0.1-1.2); EOS # 0.00 (0.04-0.54); EOS % 0.0 % (0.7-7.0); LYMPH # 0.27 (1.18-3.74); LYMPH % 4.5 % (19.3-53.1); MEAN PLATELET VOLUME 10.30 fl (9.4-12.4); MONO # 0.39 (0.24-0.82); MONO % 6.4 % (4.7-12.5); NEUT # 5.35 (1.56-6.13); NEUT % 88.2 % (34.0-71.1); RED CELL DISTRIBUTION WIDTH 15.9 % (11.6-14.4)
[2025-08-02 08:02] LABS: ALT/SGPT 614.0 U/L (12-78); AST/SGOT 514.0 U/L (15-37); BILIRUBIN TOTAL 2.35 mg/dL (0.3-1.2); BUN CREA RATIO 8.0 (7.0-25.0); CREATININE SERUM 2.63 mg/dL (0.55-1.02); GFR 18.17; GLOBULINA 3.4 G/DL (2.4-3.5); GLUCOSE FASTING 90.0 mg/dL (65-100); OSMOLALITY SERUM 293.0 MOSM/KG (275-295)
[2025-08-02 09:00] VITALS: BP 103/67; O2SAT 94
[2025-08-02] MEDS ORDERED: ONDANSETRON HCL 2 MG/ML VIAL IV PRN (12:00)
[2025-08-02] MEDS ORDERED: MAGNESIUM SULFATE IN WATER 50 ML IV NR (13:00)
[2025-08-02] MEDS ORDERED: POTASSIUM CHLORIDE IN WATER 40 MEQ/100 ML PIGGYBAG IV SCH (17:00)
[2025-08-02 18:03] VITALS: BP 90/50; O2SAT 98
[2025-08-02] MEDS ORDERED: DIPHENHYDRAMINE HCL 50 MG/ML VIAL 1ML IV ONE (20:30)
[2025-08-03 01:10] VITALS: BP 101/64; O2SAT 98
[2025-08-03 06:00] LABS: BASO % 0.2 % (0.1-1.2); EOS # 0.03 (0.04-0.54); EOS % 0.7 % (0.7-7.0); LYMPH # 0.63 (1.18-3.74); LYMPH % 15.6 % (19.3-53.1); MEAN PLATELET VOLUME 10.50 fl (9.4-12.4); MONO # 0.33 (0.24-0.82); MONO % 8.2 % (4.7-12.5); NEUT # 3.01 (1.56-6.13); NEUT % 74.8 % (34.0-71.1); RED CELL DISTRIBUTION WIDTH 16.0 % (11.6-14.4)
[2025-08-03 06:28] LABS: ALT/SGPT 421.0 U/L (12-78); AST/SGOT 181.0 U/L (15-37); BILIRUBIN TOTAL 1.93 mg/dL (0.3-1.2); BUN CREA RATIO 9.0 (7.0-25.0); CREATININE SERUM 3.27 mg/dL (0.55-1.02); GFR 14.13; GLOBULINA 3.4 G/DL (2.4-3.5); GLUCOSE FASTING 102.0 mg/dL (65-100); OSMOLALITY SERUM 294.0 MOSM/KG (275-295)
[2025-08-03 09:44] VITALS: BP 96/60; O2SAT 95
[2025-08-03 14:33] LABS: URINE APPEARANCE Cloudy; URINE BILIRRUBIN Negative (NEGATIVE); URINE BLOOD Large; URINE COLOR Orange; URINE KETONE Negative (NEGATIVE); URINE LEUKOCYTE Large; URINE NITRATE Negative; URINE UROBILINOGEN 0.2 E.U./dl
[2025-08-03 14:37] LABS: URINE BACTERIA 264.0 uL (0.0-1933); URINE EPITHELIAL CELLS 8.3 uL (0.0-38.8); URINE RBC 7640.2 uL (0.0-20.8); URINE WBC 1404.2 uL (0.0-23.2)
[2025-08-03 14:42] LABS: URINE CAST 0.29 uL (0.0-1.40); URINE GLUCOSE 100 MG/DL (NEGATIVE); URINE PROTEIN 100 (NEGATIVE)
[2025-08-03 17:28] VITALS: BP 108/66; O2SAT 100
[2025-08-03] MEDS ORDERED: DIPHENHYDRAMINE HCL 50 MG/ML VIAL 1ML IV PRN (22:00)
[2025-08-04 01:10] VITALS: BP 94/60; O2SAT 97
[2025-08-04 09:19] VITALS: BP 109/64; O2SAT 98
[2025-08-04 17:40] VITALS: BP 98/66
[2025-08-05 02:38] VITALS: BP 93/58; O2SAT 99
[2025-08-05 07:02] LABS: ALT/SGPT 179.0 U/L (12-78); AST/SGOT 29.0 U/L (15-37); BILIRUBIN TOTAL 0.77 mg/dL (0.3-1.2); BUN CREA RATIO 9.0 (7.0-25.0); CREATININE SERUM 2.83 mg/dL (0.55-1.02); GFR 16.7; GLOBULINA 3.4 G/DL (2.4-3.5); GLUCOSE FASTING 100.0 mg/dL (65-100); OSMOLALITY SERUM 294.0 MOSM/KG (275-295)
[2025-08-05 08:25] VITALS: BP 98/60
[2025-08-05 17:22] VITALS: BP 127/66; O2SAT 97
[2025-08-05] MEDS ORDERED: FAMOTIDINE/PF 20 MG/2 ML VIAL IV STA (21:04)
[2025-08-06 02:39] VITALS: BP 102/66; O2SAT 97
[2025-08-06 08:52] VITALS: BP 139/71
[2025-08-06] MEDS ORDERED: FAMOTIDINE/PF 20 MG/2 ML VIAL IV SCH (09:00)
[2025-08-06 20:01] VITALS: BP 124/73
[2025-08-07 01:26] VITALS: BP 100/66; O2SAT 99
[2025-08-07 08:57] VITALS: BP 125/76; O2SAT 97
== END 2025-08-07 10:05 | disposition home or self-care (01) | DRG 660 ==
LOC: ER 19:29 → SEC-K 22:27 → MEDI 22:27 → MEDJ 07-31 11:15
PROVIDERS: General Practice; Internal Medicine; Internal Medicine Infectious Disease; Urology; ADMIT Internal Medicine; ATTEND Internal Medicine
PROC: 0T774DZ Dilation of Left Ureter with Intraluminal Device, Percutaneous Endoscopic Approach (ICD-10-PCS; 2025-08-01)
PROC: 0TJ98ZZ Inspection of Ureter, Via Natural or Artificial Opening Endoscopic (ICD-10-PCS; 2025-08-01)
PROC: 0TP94DZ Removal of Intraluminal Device from Ureter, Percutaneous Endoscopic Approach (ICD-10-PCS; principal; 2025-08-01 07:00)
PROC: 02HV33Z Insertion of Infusion Device into Superior Vena Cava, Percutaneous Approach (ICD-10-PCS; 2025-08-04)
DX: N39.0 Urinary tract infection, site not specified (principal); E22.2 Syndrome of inappropriate secretion of antidiuretic hormone; N17.9 Acute kidney failure, unspecified; N18.30 Chronic kidney disease, stage 3 unspecified

== ENCOUNTER 2025-09-22 18:44 | Inpatient (IN) | payer OTHER ==
[~2025-09-22] VITALS: Ht 167.6 cm; Wt 88.5 kg
[~2025-09-22 18:44] MED LIST changes: +AZO D-MANNOSE500 MG PO; +DDAVP0.1 MG NASAL; +ORTHO DF 3,7751 EACH
[2025-09-22] MEDS ORDERED: 0.9 % SODIUM CHLORIDE 1,000 ML IV ONE ×2 (20:45→22:00)
[2025-09-22] MEDS ORDERED: MEROPENEM 500 MG/VIAL VIAL IV SCH (21:00)
[2025-09-22 21:16] LABS: BASO % 0.5 % (0.1-1.2); EOS # 0.11 (0.04-0.54); EOS % 1.3 % (0.7-7.0); LYMPH # 1.28 (1.18-3.74); LYMPH % 14.7 % (19.3-53.1); MEAN PLATELET VOLUME 9.40 fl (9.4-12.4); MONO # 0.56 (0.24-0.82); MONO % 6.4 % (4.7-12.5); NEUT # 6.59 (1.56-6.13); NEUT % 75.6 % (34.0-71.1); RED CELL DISTRIBUTION WIDTH 15.8 % (11.6-14.4)
[2025-09-22 21:37] LABS: INR 0.99
[2025-09-22 21:46] LABS: ALT/SGPT 17.0 U/L (12-78); AST/SGOT 10.0 U/L (15-37); BILIRUBIN TOTAL 0.58 mg/dL (0.3-1.2); BUN CREA RATIO 11.0 (7.0-25.0); GFR 10.59; GLOBULINA 5.7 G/DL (2.4-3.5); GLUCOSE FASTING 115.0 mg/dL (65-100); OSMOLALITY SERUM 290.0 MOSM/KG (275-295)
[2025-09-22 21:50] LABS: CREATININE SERUM 4.2 mg/dL (0.55-1.02)
[2025-09-22] MEDS ORDERED: 0.9 % SODIUM CHLORIDE 1,000 ML IV SCH (22:00)
[2025-09-22] MEDS ORDERED: CITRIC ACID/SODIUM CITRATE 30 ML BLIST.PACK PO SCH (22:01)
[2025-09-23 02:28] LABS: URINE APPEARANCE Turbid; URINE BILIRRUBIN Negative (NEGATIVE); URINE BLOOD Moderate; URINE COLOR Yellow; URINE KETONE Negative (NEGATIVE); URINE LEUKOCYTE Large; URINE NITRATE Negative; URINE UROBILINOGEN 0.2 E.U./dl
[2025-09-23 02:32] LABS: URINE BACTERIA 7317.5 uL (0.0-1933); URINE EPITHELIAL CELLS 67.6 uL (0.0-38.8); URINE RBC 54.6 uL (0.0-20.8)
[2025-09-23 03:03] LABS: URINE CAST 0.16 uL (0.0-1.40); URINE GLUCOSE 100 MG/DL (NEGATIVE); URINE PROTEIN 300 (NEGATIVE); URINE WBC > 5548.3 uL (0.0-23.2); URINE YEAST MANY /hpf
[2025-09-23 08:11] VITALS: BP 117/77; O2SAT 99
[2025-09-23] MEDS ORDERED: TAMSULOSIN HCL 0.4 MG CAP PO SCH (09:00)
[2025-09-23] MEDS ORDERED: IRON FUM,PS/FOLIC/BCOMP,C NO.9 1 CAP CAPSULE PO SCH (09:00)
[2025-09-23] MEDS ORDERED: FAMOTIDINE/PF 20 MG in 0.9 % SODIUM CHLORIDE 8 ML IV PUSH SCH (09:00)
[2025-09-23] MEDS ORDERED: ENOXAPARIN SODIUM 30 MG/0.3 ML SYRINGE SUBCUTANEO SCH (09:00)
[2025-09-23 21:54] VITALS: BP 114/71; O2SAT 0
[2025-09-24 03:04] VITALS: BP 109/66; O2SAT 97
[2025-09-24 06:57] LABS: ALT/SGPT 16.0 U/L (12-78); AST/SGOT 6.0 U/L (15-37); BILIRUBIN TOTAL 0.47 mg/dL (0.3-1.2); BUN CREA RATIO 11.0 (7.0-25.0); CREATININE SERUM 3.31 mg/dL (0.55-1.02); GFR 13.94; GLOBULINA 3.8 G/DL (2.4-3.5); GLUCOSE FASTING 114.0 mg/dL (65-100); OSMOLALITY SERUM 297.0 MOSM/KG (275-295)
[2025-09-24 08:34] VITALS: BP 144/78; O2SAT 98
[2025-09-24 18:44] VITALS: BP 140/78; O2SAT 100
[2025-09-25 01:13] VITALS: BP 102/62; O2SAT 97
[2025-09-25 08:02] LABS: BASO % 0.8 % (0.1-1.2); EOS # 0.09 (0.04-0.54); EOS % 1.7 % (0.7-7.0); LYMPH # 1.01 (1.18-3.74); LYMPH % 19.5 % (19.3-53.1); MEAN PLATELET VOLUME 9.90 fl (9.4-12.4); MONO # 0.51 (0.24-0.82); MONO % 9.8 % (4.7-12.5); NEUT # 3.45 (1.56-6.13); NEUT % 66.5 % (34.0-71.1); RED CELL DISTRIBUTION WIDTH 15.9 % (11.6-14.4)
[2025-09-25 08:48] LABS: ALT/SGPT 14.0 U/L (12-78); AST/SGOT 7.0 U/L (15-37); BILIRUBIN TOTAL 0.47 mg/dL (0.3-1.2); BUN CREA RATIO 11.0 (7.0-25.0); CREATININE SERUM 3.16 mg/dL (0.55-1.02); GFR 14.7; GLOBULINA 3.5 G/DL (2.4-3.5); GLUCOSE FASTING 85.0 mg/dL (65-100); OSMOLALITY SERUM 296.0 MOSM/KG (275-295)
[2025-09-25 09:00] VITALS: BP 138/63; O2SAT 98
[2025-09-25 15:20] LABS: URINE APPEARANCE Turbid; URINE BILIRRUBIN Negative (NEGATIVE); URINE BLOOD Moderate; URINE COLOR Yellow; URINE GLUCOSE Negative (NEGATIVE); URINE KETONE Negative (NEGATIVE); URINE LEUKOCYTE Large; URINE NITRATE Negative; URINE PROTEIN 30 (NEGATIVE); URINE UROBILINOGEN 0.2 E.U./dl
[2025-09-25 15:24] LABS: URINE BACTERIA 719.9 uL (0.0-1933); URINE EPITHELIAL CELLS 12.9 uL (0.0-38.8); URINE RBC 77.5 uL (0.0-20.8)
[2025-09-25 15:53] LABS: URINE CAST 0.14 uL (0.0-1.40); URINE WBC > 5548.3 uL (0.0-23.2)
[2025-09-25 17:55] VITALS: BP 150/73; O2SAT 100
[2025-09-26 01:10] VITALS: BP 115/62; O2SAT 98
[2025-09-26] MEDS ORDERED: SODIUM CHLORIDE 0.45 % 1,000 ML IV SCH (05:30)
[2025-09-26 09:22] VITALS: BP 122/74; O2SAT 99
[2025-09-26 17:41] VITALS: BP 124/71
[2025-09-27 03:19] VITALS: BP 113/71; O2SAT 98
[2025-09-27 08:54] VITALS: BP 119/70; O2SAT 99
[2025-09-27 18:17] VITALS: BP 117/67
[2025-09-28 02:40] VITALS: BP 99/66; O2SAT 98
[2025-09-28 07:55] LABS: BASO % 0.5 % (0.1-1.2); EOS # 0.14 (0.04-0.54); EOS % 2.5 % (0.7-7.0); LYMPH # 1.05 (1.18-3.74); LYMPH % 18.5 % (19.3-53.1); MEAN PLATELET VOLUME 9.70 fl (9.4-12.4); MONO # 0.44 (0.24-0.82); MONO % 7.7 % (4.7-12.5); NEUT # 3.96 (1.56-6.13); NEUT % 69.6 % (34.0-71.1); RED CELL DISTRIBUTION WIDTH 16.0 % (11.6-14.4)
[2025-09-28 08:25] LABS: ALT/SGPT 15.0 U/L (12-78); AST/SGOT 11.0 U/L (15-37); BILIRUBIN TOTAL 0.72 mg/dL (0.3-1.2); BUN CREA RATIO 9.0 (7.0-25.0); CREATININE SERUM 2.73 mg/dL (0.55-1.02); GFR 17.41; GLOBULINA 3.8 G/DL (2.4-3.5); GLUCOSE FASTING 77.0 mg/dL (65-100); OSMOLALITY SERUM 284.0 MOSM/KG (275-295)
[2025-09-28 08:26] VITALS: BP 111/69; O2SAT 96
[2025-09-28] MEDS ORDERED: FLUCONAZOLE IN NACL,ISO-OSM 200 MG/100 ML PIGGYBAG IV NR (16:00)
[2025-09-28 18:02] VITALS: BP 119/71
[2025-09-29 02:10] VITALS: BP 110/71; O2SAT 97
[2025-09-29 08:53] VITALS: BP 116/74; O2SAT 98
[2025-09-29] MEDS ORDERED: FLUCONAZOLE IN NACL,ISO-OSM 50 ML IV SCH (12:00)
[2025-09-29] MEDS ORDERED: FLUCONAZOLE IN NACL,ISO-OSM 2 MG/ML ML IV SCH (17:00)
[2025-09-29] MEDS ORDERED: FAMOTIDINE/PF 20 MG/2 ML VIAL IV SCH (17:00)
[2025-09-29 21:04] VITALS: BP 97/60
[2025-09-30 03:44] VITALS: BP 100/61; O2SAT 98
[2025-09-30 08:00] VITALS: BP 112/63; O2SAT 99
[2025-09-30 19:11] VITALS: BP 92/60; O2SAT 98
[2025-09-30] MEDS ORDERED: PANTOPRAZOLE SODIUM 40 MG/VIAL VIAL IV ONE (19:45)
[2025-09-30] MEDS ORDERED: SUCRALFATE 1 G TABLET PO SCH (21:00)
[2025-09-30] MEDS ORDERED: FAMOTIDINE/PF 20 MG/2 ML VIAL IV SCH (21:00)
[2025-10-01 02:23] VITALS: BP 90/55; O2SAT 98
[2025-10-01] MEDS ORDERED: 0.9 % SODIUM CHLORIDE 1,000 ML IV SCH (06:15)
[2025-10-01 08:00] VITALS: BP 114/58; O2SAT 98
[2025-10-01] MEDS ORDERED: PANTOPRAZOLE SODIUM 40 MG TABLET.DR PO SCH (09:00)
[2025-10-01 10:40] LABS: BASO % 0.6 % (0.1-1.2); EOS # 0.09 (0.04-0.54); EOS % 1.8 % (0.7-7.0); LYMPH # 1.06 (1.18-3.74); LYMPH % 20.8 % (19.3-53.1); MEAN PLATELET VOLUME 9.80 fl (9.4-12.4); MONO # 0.45 (0.24-0.82); MONO % 8.8 % (4.7-12.5); NEUT # 3.43 (1.56-6.13); NEUT % 67.2 % (34.0-71.1); RED CELL DISTRIBUTION WIDTH 16.1 % (11.6-14.4)
[2025-10-01 11:35] LABS: BUN CREA RATIO 9.0 (7.0-25.0); CREATININE SERUM 2.85 mg/dL (0.55-1.02); GFR 16.56; GLUCOSE FASTING 90.0 mg/dL (65-100); OSMOLALITY SERUM 282.0 MOSM/KG (275-295)
[2025-10-01 17:52] VITALS: BP 99/62
[2025-10-02 06:45] VITALS: BP 88/44; O2SAT 97
[2025-10-02 08:51] VITALS: BP 112/69; O2SAT 98
[2025-10-02 16:38] LABS: BUN CREA RATIO 9.0 (7.0-25.0); CREATININE SERUM 2.66 mg/dL (0.55-1.02); GFR 17.94; GLUCOSE FASTING 152.0 mg/dL (65-100); OSMOLALITY SERUM 290.0 MOSM/KG (275-295)
[2025-10-02 18:08] VITALS: BP 92/60
[2025-10-03 02:37] VITALS: BP 107/70; O2SAT 96
[2025-10-03 08:33] VITALS: BP 107/50; O2SAT 97
[2025-10-03 18:45] VITALS: BP 120/66; O2SAT 100
[2025-10-04 02:25] VITALS: BP 112/70; O2SAT 97
[2025-10-04 09:27] VITALS: BP 114/78; O2SAT 100
[2025-10-04] MEDS ORDERED: LACTOBACILLUS ACIDOPHILUS 1 CAP CAP PO SCH (17:00)
[2025-10-04 17:50] VITALS: BP 101/60; O2SAT 95
[2025-10-05 02:13] VITALS: BP 114/65; O2SAT 98
[2025-10-05 09:21] VITALS: BP 91/57; O2SAT 99
[2025-10-05 18:11] VITALS: BP 120/72; O2SAT 98
[2025-10-06 03:07] VITALS: BP 110/69; O2SAT 97
[2025-10-06 11:22] VITALS: BP 115/71; O2SAT 100
[2025-10-06 16:20] VITALS: BP 105/68; O2SAT 99
[2025-10-07 00:50] VITALS: BP 90/60; O2SAT 97
[2025-10-07 06:48] LABS: BASO % 0.5 % (0.1-1.2); EOS # 0.13 (0.04-0.54); EOS % 2.4 % (0.7-7.0); LYMPH # 1.26 (1.18-3.74); LYMPH % 22.8 % (19.3-53.1); MEAN PLATELET VOLUME 10.20 fl (9.4-12.4); MONO # 0.47 (0.24-0.82); MONO % 8.5 % (4.7-12.5); NEUT # 3.61 (1.56-6.13); NEUT % 65.3 % (34.0-71.1); RED CELL DISTRIBUTION WIDTH 16.4 % (11.6-14.4)
[2025-10-07 07:35] LABS: BUN CREA RATIO 8.0 (7.0-25.0); CREATININE SERUM 3.01 mg/dL (0.55-1.02); GFR 15.55; GLUCOSE FASTING 87.0 mg/dL (65-100); OSMOLALITY SERUM 287.0 MOSM/KG (275-295)
[2025-10-07 09:05] VITALS: BP 112/69; O2SAT 99
[2025-10-07 18:06] VITALS: BP 95/56; O2SAT 97
[2025-10-08 03:07] VITALS: BP 104/63; O2SAT 99
[2025-10-08 06:59] LABS: BUN CREA RATIO 9.0 (7.0-25.0); CREATININE SERUM 3.03 mg/dL (0.55-1.02); GFR 15.43; GLUCOSE FASTING 95.0 mg/dL (65-100); OSMOLALITY SERUM 285.0 MOSM/KG (275-295)
[2025-10-08 09:17] VITALS: BP 90/60; O2SAT 98
[2025-10-08 18:00] VITALS: BP 96/61
[2025-10-09 03:10] VITALS: BP 117/72; O2SAT 96
[2025-10-09 06:57] LABS: BUN CREA RATIO 11.0 (7.0-25.0); CREATININE SERUM 3.24 mg/dL (0.55-1.02); GFR 14.29; GLUCOSE FASTING 88.0 mg/dL (65-100); OSMOLALITY SERUM 285.0 MOSM/KG (275-295)
[2025-10-09 09:19] VITALS: BP 133/88; O2SAT 98
[2025-10-09 21:56] VITALS: BP 84/60
[2025-10-10 03:00] VITALS: BP 103/67; O2SAT 97
[2025-10-10 06:51] LABS: BUN CREA RATIO 10.0 (7.0-25.0); CREATININE SERUM 3.56 mg/dL (0.55-1.02); GFR 12.81; GLUCOSE FASTING 114.0 mg/dL (65-100); OSMOLALITY SERUM 287.0 MOSM/KG (275-295)
[2025-10-10] MEDS ORDERED: 0.9 % SODIUM CHLORIDE 1,000 ML IV SCH (09:30)
[2025-10-10 10:12] VITALS: BP 90/66; O2SAT 98
[2025-10-10 21:25] VITALS: BP 140/70
[2025-10-11 01:00] VITALS: BP 94/62; O2SAT 98
[2025-10-11 08:05] LABS: ALT/SGPT 18.0 U/L (12-78); AST/SGOT 11.0 U/L (15-37); BILIRUBIN TOTAL 0.65 mg/dL (0.3-1.2); BUN CREA RATIO 11.0 (7.0-25.0); CREATININE SERUM 3.34 mg/dL (0.55-1.02); GFR 13.79; GLOBULINA 3.9 G/DL (2.4-3.5); GLUCOSE FASTING 92.0 mg/dL (65-100); OSMOLALITY SERUM 289.0 MOSM/KG (275-295)
[2025-10-11 15:26] LABS: URINE APPEARANCE Turbid; URINE BILIRRUBIN Negative (NEGATIVE); URINE BLOOD Moderate; URINE COLOR Yellow; URINE GLUCOSE Negative (NEGATIVE); URINE KETONE Negative (NEGATIVE); URINE LEUKOCYTE Large; URINE NITRATE Negative; URINE UROBILINOGEN 0.2 E.U./dl
[2025-10-11 15:30] LABS: URINE EPITHELIAL CELLS 52.1 uL (0.0-38.8); URINE RBC 34.7 uL (0.0-20.8)
[2025-10-11 15:47] LABS: URINE BACTERIA > 9821.5 uL (0.0-1933); URINE CAST 0.56 uL (0.0-1.40); URINE PROTEIN 100 (NEGATIVE)
[2025-10-11 17:43] VITALS: BP 92/60; O2SAT 97
[2025-10-12 02:27] VITALS: BP 98/66; O2SAT 97
[2025-10-12 09:50] VITALS: BP 105/73; O2SAT 98
[2025-10-12 18:18] VITALS: BP 117/75; O2SAT 98
[2025-10-13 01:03] VITALS: BP 99/64; O2SAT 96
[2025-10-13 06:24] LABS: BASO % 0.7 % (0.1-1.2); EOS # 0.13 (0.04-0.54); EOS % 2.1 % (0.7-7.0); LYMPH # 1.46 (1.18-3.74); LYMPH % 24.0 % (19.3-53.1); MEAN PLATELET VOLUME 10.40 fl (9.4-12.4); MONO # 0.58 (0.24-0.82); MONO % 9.5 % (4.7-12.5); NEUT # 3.81 (1.56-6.13); NEUT % 62.7 % (34.0-71.1); RED CELL DISTRIBUTION WIDTH 16.2 % (11.6-14.4)
[2025-10-13 07:17] LABS: ALT/SGPT 18.0 U/L (12-78); AST/SGOT 13.0 U/L (15-37); BILIRUBIN TOTAL 0.71 mg/dL (0.3-1.2); BUN CREA RATIO 10.0 (7.0-25.0); CREATININE SERUM 3.26 mg/dL (0.55-1.02); GFR 14.18; GLOBULINA 3.9 G/DL (2.4-3.5); GLUCOSE FASTING 95.0 mg/dL (65-100); OSMOLALITY SERUM 290.0 MOSM/KG (275-295)
[2025-10-13 08:17] VITALS: BP 98/65; O2SAT 96
[2025-10-13 21:25] VITALS: BP 123/85
[2025-10-14 00:47] VITALS: BP 120/70; O2SAT 100
[2025-10-14 10:35] VITALS: BP 105/67; O2SAT 97
[2025-10-14] MEDS ORDERED: CEFTAZIDIME/AVIBACTAM 0.94GM/100ML NSS PB IV SCH (17:00)
[2025-10-15 01:59] VITALS: BP 121/75; O2SAT 98
[2025-10-15 09:09] LABS: BUN CREA RATIO 8.0 (7.0-25.0); CREATININE SERUM 3.08 mg/dL (0.55-1.02); GFR 15.15; GLUCOSE FASTING 88.0 mg/dL (65-100); OSMOLALITY SERUM 290.0 MOSM/KG (275-295)
[2025-10-15 09:25] VITALS: BP 97/58; O2SAT 98
[2025-10-15 21:57] VITALS: BP 111/75
[2025-10-16 01:47] VITALS: BP 109/73; O2SAT 97
[2025-10-16 09:14] VITALS: BP 106/65; O2SAT 96
[2025-10-16] MEDS ORDERED: FLUCONAZOLE 100 MG TABLET PO SCH (17:00)
[2025-10-16 18:45] VITALS: BP 108/65; O2SAT 97
[2025-10-17 01:40] VITALS: BP 107/69; O2SAT 98
[2025-10-17 09:07] VITALS: BP 97/64; O2SAT 98
[2025-10-17 13:41] LABS: URINE APPEARANCE Cloudy; URINE BILIRRUBIN Negative (NEGATIVE); URINE BLOOD Small; URINE COLOR Yellow; URINE GLUCOSE Negative (NEGATIVE); URINE KETONE Negative (NEGATIVE); URINE LEUKOCYTE Large; URINE NITRATE Negative; URINE PROTEIN 30 (NEGATIVE); URINE UROBILINOGEN 0.2 E.U./dl
[2025-10-17 13:49] LABS: URINE BACTERIA 942.5 uL (0.0-1933); URINE EPITHELIAL CELLS 26.9 uL (0.0-38.8); URINE RBC 11.6 uL (0.0-20.8); URINE WBC 2114.1 uL (0.0-23.2)
[2025-10-17 13:51] LABS: URINE CAST 0.56 uL (0.0-1.40)
[2025-10-17 18:25] VITALS: BP 103/62; O2SAT 100
[2025-10-18 05:31] VITALS: BP 124/78; O2SAT 96
[2025-10-18 07:38] LABS: BASO % 0.6 % (0.1-1.2); EOS # 0.14 (0.04-0.54); EOS % 2.9 % (0.7-7.0); LYMPH # 0.90 (1.18-3.74); LYMPH % 18.4 % (19.3-53.1); MEAN PLATELET VOLUME 10.20 fl (9.4-12.4); MONO # 0.37 (0.24-0.82); MONO % 7.6 % (4.7-12.5); NEUT # 3.39 (1.56-6.13); NEUT % 69.3 % (34.0-71.1); RED CELL DISTRIBUTION WIDTH 16.0 % (11.6-14.4)
[2025-10-18 08:12] LABS: ALT/SGPT 21.0 U/L (12-78); AST/SGOT 16.0 U/L (15-37); BILIRUBIN TOTAL 0.61 mg/dL (0.3-1.2); BUN CREA RATIO 7.0 (7.0-25.0); CREATININE SERUM 2.92 mg/dL (0.55-1.02); GFR 16.11; GLOBULINA 3.9 G/DL (2.4-3.5); GLUCOSE FASTING 95.0 mg/dL (65-100); OSMOLALITY SERUM 287.0 MOSM/KG (275-295)
[2025-10-18 11:31] VITALS: BP 118/71; O2SAT 99
[2025-10-18 20:01] VITALS: BP 100/59
[2025-10-19 03:01] VITALS: BP 105/68; O2SAT 96
[2025-10-19 09:42] VITALS: BP 100/69; O2SAT 99
[2025-10-19] MEDS ORDERED: POTASSIUM BICARBONATE/CIT AC 25 MEQ TABLET.EFF PO SCH (13:00)
[2025-10-19 20:00] VITALS: BP 113/73
[2025-10-20 02:57] VITALS: BP 121/72; O2SAT 97
[2025-10-20 19:22] VITALS: BP 92/57; O2SAT 97
[2025-10-21 03:15] VITALS: BP 108/72; O2SAT 99
[2025-10-21] MEDS ORDERED: INTEGRA PLUS C1 EACH PO (07:49)
[2025-10-21] MEDS ORDERED: PANTOPRAZOLE SO40 MG PO (07:50)
[2025-10-21] MEDS ORDERED: INTESTINEX680 M1 PO (07:50)
[2025-10-21 09:57] VITALS: BP 105/69; O2SAT 98
[2025-10-21 18:19] VITALS: BP 88/44
== END 2025-10-21 20:00 | disposition home or self-care (01) | DRG 659 ==
LOC: ER 18:45 → MEDJ 22:13 → SEC-K 22:13 → MEDI 23:43 → MEDJ 09-23 23:42
PROVIDERS: General Practice; Internal Medicine; Internal Medicine Endocrinology, Diabetes & Metabolism; Internal Medicine Infectious Disease; Internal Medicine Nephrology; Urology; ADMIT Internal Medicine; ATTEND Internal Medicine
PROC: 02HV33Z Insertion of Infusion Device into Superior Vena Cava, Percutaneous Approach (ICD-10-PCS; 2025-09-22)
PROC: 0T788DZ Dilation of Bilateral Ureters with Intraluminal Device, Via Natural or Artificial Opening Endoscopic (ICD-10-PCS; principal; 2025-10-05)
PROC: 0TP98DZ Removal of Intraluminal Device from Ureter, Via Natural or Artificial Opening Endoscopic (ICD-10-PCS; 2025-10-05)
DX: N39.0 Urinary tract infection, site not specified (principal); A41.9 Sepsis, unspecified organism; N17.9 Acute kidney failure, unspecified; Z87.442 Personal history of urinary calculi; E11.9 Type 2 diabetes mellitus without complications; Z79.4 Long term (current) use of insulin